=== PATIENT | male | born 1945 | race Caucasian/White ===

== ENCOUNTER 2019-09-26 15:16 | Inpatient (IN) | payer MEDICARE, OTHER ==
[~2019-09-26] VITALS: Ht 172.7 cm; Wt 81.2 kg
[2019-09-26] MEDS ORDERED: DILTIAZEM HCL 5 MG/ML 5 ML VIAL IV STA (15:35)
[2019-09-26] MEDS ORDERED: ASPIRIN 81 MG ENTERIC COATED PO ONE (15:45)
[2019-09-26] MEDS ORDERED: DILTIAZEM HCL VIAL 5 ML ONE (15:45)
[2019-09-26 15:54] LABS: BASOPHILS % 0.2 % (0.0-1.0); EOSINOPHILS % 0.5 % (0.0-6.0); HEMATOCRIT 40.7 % (38.2-49.6); LYMPHOCYTES # (AUTO) 0.6 (1.0-3.2); MEAN CORPUSCULAR HEMOGLOBIN 30.8 pg (28-32); MEAN CORPUSCULAR HGB CONC 34.4 g/dL (31-35); MEAN CORPUSCULAR VOLUME 89.6 fL (81-99); MONOCYTES # (AUTO) 0.8 (0.2-0.8); NEUTROPHILS # (AUTO) 7.1 (2.1-6.9); NEUTROPHILS % 82.9 % (38.7-80.0); PLATELET COUNT 133 x10e3/uL (140-360); RED BLOOD COUNT 4.54 x10e6/uL (4.3-5.7); RED CELL DISTRIBUTION WIDTH 13.8 % (11.7-14.4)
[2019-09-26] MEDS ORDERED: ASPIRIN 81 MG CHEW TAB PO ONE (16:00)
[2019-09-26 16:04] LABS: INR 1.2; PARTIAL THROMBOPLASTIN TIME 32.6 seconds (23.8-35.5)
[2019-09-26 16:07] LABS: BILIRUBIN,URINE SMALL (NEGATIVE); CLARITY,URINE CLEAR (CLEAR); COLOR,URINE ORANGE (YELLOW); KETONES,URINE NEGATIVE (NEGATIVE); LEUKOCYTE ESTERASE ,URINE NEGATIVE (NEGATIVE); NITRITE,URINE NEGATIVE (NEGATIVE); PROTEIN,URINE DIPSTICK NEGATIVE (NEGATIVE)
[2019-09-26 16:12] LABS: ALBUMIN 3.8 g/dL (3.5-5.0); ALBUMIN/GLOBULIN RATIO 1.4 (0.8-2.0); CALCIUM 9.1 mg/dL (8.4-10.2); CREATININE, SERUM 1.49 mg/dL (0.72-1.25); MAGNESIUM 1.8 MG/DL (1.3-2.1)
--- NOTE | 2019-09-26 16:19 | NUR ---
H&P cc: chest tightness HPI: 74yoM, PCP , card , with hx cardiac arrhythmia of unknown type, developed chest tightness and SOB for 24hours, found to have A.fib with RVR. Pt does have hx hyperthyroidism. PMH: hyperthyroidism, hemorrhoids s/p surgical mgmt, HTN, nicotine dependence in remission, pilonidal cyst s/p removal, PSHx: pilonidal cyst remova, hemorrhoid ALlergies; see emr FH/SH; quit cigs; uses Ecig; ; meds; see MAR ROS: no f/c/s/N/V/D/CARDENAS/dizziness/skin rash/focal limb weakness/confusion v/s revd PE tired appearing anicteric ns1s2; irregular HR mod bs soft nt nd no e/t skin dry n. affect labs/meds revd A/P: A.fib with RVR- dilt; lovenox BID; echo HTN- CCB Hyperthyroidism- check TSH and T4; resume methimizole 5 TID CONSTANCE- IVF Nnicotine dependence in remission Prop: pepcid on AC Dispo: Juan Carlos Henning MD, PhD.
[2019-09-26 16:22] LABS: BACTERIA,URINE MODERATE /HPF; EPITHELIAL CELLS,URINE FEW /LPF; MUCUS,URINE MODERATE (RARE); RBC,URINE 0-5 /HPF (0-5)
[2019-09-26] MEDS ORDERED: ACETAMINOPHEN 325 MG TAB PO PRN (16:30)
[2019-09-26] MEDS ORDERED: SENNOSIDES 8.6 MG TAB PO PRN (16:30)
[2019-09-26] MEDS ORDERED: ZOLPIDEM TARTRATE 5 MG TAB PO PRN (16:30)
[2019-09-26] MEDS: DILTIAZEM HCL IV SOLN 125 MG in SODIUM CHLORIDE 0.9% 100 ML IV SCH (16:30)
[2019-09-26] MEDS ORDERED: FAMOTIDINE 20 MG TAB PO SCH (16:30)
[2019-09-26] MEDS ORDERED: ONDANSETRON HCL INJ 2MG/ML 2ML 2 MG/ML VIAL IV PRN ×2 (16:30→17:00)
[2019-09-26 16:31] LABS: CREATINE KINASE MB 3.6 ng/mL (0-5.0); THYROID STIMULATING HORMONE 0.762 uIU/mL (0.350-4.940)
--- NOTE | 2019-09-26 16:38 | Diagnostic Imaging Report ---
Chest, portable AP view History: Shortness of breath chest pain Comparison: No comparisons available for review IMPRESSION: The cardiac silhouette is magnified by portable technique. Retrocardiac opacity may be secondary to atelectasis or consolidation. The right lung is grossly clear. No sizable pleural effusion or pneumothorax. Signed by: Cezar Butler MD on 09/26/2019 4:35 PM
[2019-09-26] MEDS ORDERED: MORPHINE SULFATE 2 MG/ML SYR 1ML IV PRN (17:00)
[2019-09-26] MEDS ORDERED: ENOXAPARIN SODIUM INJ 100 MG/ML SYR SC ONE (17:00)
[2019-09-26] MEDS ORDERED: NITROGLYCERIN 0.4 MG SUBL SL PRN (17:00)
--- OUTSIDE RECORDS SUMMARY | 2019-09-26 17:01 | XMS REPORT ---
Author Author [facility] Address Unknown Phone Unavailable Care Team Providers Care Business Development Associate Name Role Phone Yamel HERNANDEZ Unavailable Unavailable Problems This patient has no known problems. Allergies, Adverse Reactions, Alerts This patient has no known allergies or adverse reactions. Medications This patient has no known medications. Results Test Description Test Time Test Comments Text Results Atomic Results Result Comments CHEST SINGLE (PORTABLE) 2019-09-26 16:35:00 [place] [id number] Patient Name: REX BRAUN MR #: [id number] : 1945 Age/Sex: 74/M Req #: [id number] Adm Physician: Ordered by: LETTY HERNANDEZ MD Report #: [id number] Location: ER Room/Bed: Procedure: [id number] DX/CHEST SINGLE (PORTABLE) Exam Date: 09/26/19 Exam Time: 1530 REPORT STATUS: Signed Chest, portable AP view History: Shortness of br eath chest pain Comparison: No comparisons available for review IMPRESSION: The cardiac silhouette is magnified by portable technique. Retrocardiac opacity may be secondary to atelectasis or consolidation. The right lung is grossly clear. No sizable pleural effusion or pneumothorax. Signed by: Cezar Balderrama MD on 09/26/2019 4:35 PM Dictated By: CEZAR BALDERRAMA MD 34 Transcribed By: DIANNE on 09/26/191634 COPY TO: LETTY HERNANDEZ MD
[2019-09-26 18:36] LABS: CHOL/HDL RATIO 2.6 (3.9-4.7)
[2019-09-26] MEDS: SODIUM CHLORIDE 0.9% 1000ML 1,000 ML IV SCH (18:41)
[2019-09-26 18:56] LABS: FREE T4 (FREE THYROXINE) 0.78 ng/dL (0.8-1.8)
--- NOTE | 2019-09-26 20:10 | NUR ---
Received to 199 from ER. Placed on EKG, pulse ox & NBP for monitoring. IV NS @ 60ml/hr & Cardizem @ 10 mg/hr. Admission history, Initial admission assessment, Vaccine history and Family history completed.
[2019-09-26 20:15] VITALS: BP 118/72
[2019-09-26] MEDS ORDERED: ASPIRIN EC81 MG PO (20:42)
[2019-09-26] MEDS ORDERED: [UNRECOGNIZED DRUG - REMARK] PO (20:42)
[2019-09-26] MEDS ORDERED: [UNRECOGNIZED DRUG - REMARK] PO (20:42)
[2019-09-26 20:46] VITALS: BP 118/72
[2019-09-26 21:00] VITALS: BP 118/72
[2019-09-26] MEDS: ENOXAPARIN INJ 80 MG/0.8 ML SYR SC SCH (21:00)
[2019-09-26] MEDS: FAMOTIDINE 20 MG/2 ML VIAL IV SCH (21:16)
[2019-09-27] VITALS (8 sets, daily range): BP systolic 97–127; BP diastolic 74–98
--- NOTE | 2019-09-27 | NUR ---
EKG leads off patient, found patient walking in room with blood dripping from IV. IV tubing appeared to be ripped in half. Pt and room cleaned up and educated on importance of calling to get out of bed. Bed alarm turned on.
[2019-09-27] MEDS: SODIUM CHLORIDE 0.9% 1000ML 1,000 ML IV SCH ×2 (00:02→23:38)
--- NOTE | 2019-09-27 02:23 | Consultation ---
DATE OF CONSULTATION: Cardiology Consultation REQUESTING PHYSICIAN: Dr. Juan Carlos Lomax. REASON FOR CONSULTATION: Atrial fibrillation and chest pain. HISTORY OF PRESENT ILLNESS: This is a 74-year-old male with history of hypertension and hyperthyroidism who presents with complaints of chest pain and shortness of breath. The patient reports he was in his usual state of health until yesterday around 10:00 pm he developed chest pressure 2/10 in severity associated with shortness of breath. There was no nausea, diaphoresis, or radiation. The pain was worse with bending over, but he did not notice any association with activity. He denied any edema, orthopnea, PND, or dizziness. Of note, he previously was evaluated by Dr. Davis last year with normal nuclear stress test as well as preserved LV systolic function on echocardiogram. REVIEW OF SYSTEMS: Negative except as per HPI. PAST MEDICAL HISTORY: 1. Hyperthyroidism. 2. Hypertension. PAST SURGICAL HISTORY: Hemorrhoidectomy. ALLERGIES: PLEASE SEE EMR. MEDICATIONS: Please see medication list. SOCIAL HISTORY: He smoked half a pack to pack a day for 25 years but quit 6 to 8 years ago. He does vape at this time. No alcohol or illicit drugs. FAMILY HISTORY: Pertinent for father who had a myocardial infarction at the age of 59. PHYSICAL EXAMINATION: VITAL SIGNS: Temperature 98 degrees, pulse 100, respiratory rate 24 blood pressure 150/101, and oxygen saturation 98%. GENERAL: Well-developed, well-nourished elderly man, in no acute distress. HEENT: Normocephalic, atraumatic. Pupils equal. No scleral icterus. NECK: Supple. No thyroid or cervical lymphadenopathy. No carotid bruits. LUNGS: Clear to auscultation bilaterally. No wheeze or crackles. CARDIOVASCULAR: Normal rate. Irregularly irregular. Normal S1, S2. No murmur. ABDOMEN: Soft and nontender. EXTREMITIES: Trace edema. NEUROLOGIC: Nonfocal exam. SKIN: Dry intact. LABORATORY DATA: BUN 16, and creatinine 1.49. BNP 498. Troponin 0.065, triglycerides 49, cholesterol 106, LDL 55, HDL 41. Chest x-ray cardiac silhouette is magnified. Retrocardiac opacity may be secondary to atelectasis or consolidation. Right lung is grossly clear. No sizable pleural effusion or pneumothorax. EKG; atrial fibrillation with RVR with PVCs, nonspecific ST wave abnormality. IMPRESSION: 1. Chest pain. 2. Atrial fibrillation with RVR. 3. Hyperthyroidism. 4. Hypertension. RECOMMENDATIONS: We will transition diltiazem to p.o. if EF is preserved. The patient's CHADS- VASc score is now 2 for age and hypertension. Anticoagulation is indicated. We will discuss with the patient. Trend cardiac enzymes to rule out myocardial infarction. If he rules out no further cardiac intervention indicated at this time given recent nuclear stress test. The patient was counseled on the importance of vaping cessation, one dose of IV diuretics given elevated BNP. Thank you for this consult. We will continue to follow. Shawna Gonsales MD ABS/MODL /[id number] MTDD
[2019-09-27] MEDS: DILTIAZEM HCL IV SOLN 125 MG in SODIUM CHLORIDE 0.9% 100 ML IV SCH (03:26)
--- NOTE | 2019-09-27 04:00 | NUR ---
Decreased Cardizem to 5mg/hr.
[2019-09-27 05:31] LABS: BASOPHILS % 0.3 % (0.0-1.0); EOSINOPHILS # (AUTO) 0.1 (0.0-0.4); EOSINOPHILS % 0.8 % (0.0-6.0); HEMATOCRIT 39.1 % (38.2-49.6); HEMOGLOBIN 12.6 g/dL (14.0-18.0); LYMPHOCYTES # (AUTO) 1.1 (1.0-3.2); LYMPHOCYTES % 16.9 % (18.0-39.1); MEAN CORPUSCULAR HEMOGLOBIN 29.9 pg (28-32); MEAN CORPUSCULAR HGB CONC 32.2 g/dL (31-35); MEAN CORPUSCULAR VOLUME 92.7 fL (81-99); MONOCYTES # (AUTO) 0.7 (0.2-0.8); MONOCYTES % 10.6 % (4.4-11.3); NEUTROPHILS # (AUTO) 4.4 (2.1-6.9); NEUTROPHILS % 71.1 % (38.7-80.0); PLATELET COUNT 119 x10e3/uL (140-360); RED BLOOD COUNT 4.22 x10e6/uL (4.3-5.7); RED CELL DISTRIBUTION WIDTH 14.3 % (11.7-14.4)
[2019-09-27 06:02] LABS: CREATINE KINASE MB 1.2 ng/mL (0-5.0)
--- NOTE | 2019-09-27 06:34 | NUR ---
IM- progress note O/N see below ROS: no f/c/s/N/V/D/CARDENAS/dizziness/skin rash/focal limb weakness/confusion v/s revd PE tired appearing anicteric ns1s2; irregular HR mod bs soft nt nd no e/t skin dry n. affect labs/meds revd A/P: A.fib with RVR- dilt; lovenox BID; echo HTN- CCB Hyperthyroidism- check TSH and T4; resume methimizole 5 TID CONSTANCE- IVF Nnicotine dependence in remission Prop: pepcid on AC Dispo: 09/27 LDL 55; f/u labs; f/u echo Juan Carlos Hennnig MD, PhD.
[2019-09-27 07:12] LABS: ALBUMIN 3.3 g/dL (3.5-5.0); ALBUMIN/GLOBULIN RATIO 1.3 (0.8-2.0); ANION GAP 14.3 mmol/L (8-16); CALCIUM 8.7 mg/dL (8.4-10.2); CHOL/HDL RATIO 2.4 (3.9-4.7); CREATININE, SERUM 1.39 mg/dL (0.72-1.25); POTASSIUM 4.3 mmol/L (3.5-5.1)
[2019-09-27 08:01] LABS: PLATELET ESTIMATE SLIGHTLY DECREASED; PLATELET MORPHOLOGY COMMENT FEW GIANT; RBC MORPHOLOGY COMMENT NORMAL
[2019-09-27] MEDS ORDERED: FUROSEMIDE INJ 10 MG/ML 2 ML VIAL IV SCH (09:00)
[2019-09-27] MEDS ORDERED: ASPIRIN 81 MG ENTERIC COATED PO SCH (09:00)
[2019-09-27] MEDS ORDERED: ASPIRIN 325 MG TAB PO SCH (09:00)
[2019-09-27] MEDS ORDERED: METOPROLOL SUCC50 MG PO (09:15)
[2019-09-27] MEDS ORDERED: METHIMAZOLE5 MG PO (09:16)
[2019-09-27] MEDS: FAMOTIDINE 20 MG/2 ML VIAL IV SCH ×2 (09:19→20:21)
[2019-09-27] MEDS: ENOXAPARIN INJ 80 MG/0.8 ML SYR SC SCH ×2 (09:19→20:21)
[2019-09-27] MEDS ORDERED: METOPROLOL SUCCINATE 50 MG TAB XL PO SCH (19:15)
--- NOTE | 2019-09-27 19:16 | Progress Note ---
DATE: 09/27/2019 Cardiology Progress Note SUBJECTIVE: The patient denies chest pain, shortness of breath, or lightheadedness. OBJECTIVE: VITAL SIGNS: Temperature 99.1 degrees, pulse 77, respiratory rate 16, blood pressure 105/74, and oxygen saturation 94% on room air. GENERAL: Awake, alert, no acute distress. LUNGS: Clear to auscultation bilaterally. No wheezes or crackles. CARDIOVASCULAR: Normal rate. Irregularly irregular. Normal S1 and S2. No murmur. ABDOMEN: Soft and nontender. EXTREMITIES: Trace edema. CARDIAC MEDICATIONS: Diltiazem drip, metoprolol succinate 50 mg p.o. daily, furosemide 20 mg IV daily, and enoxaparin 80 mg subcutaneous q.12 hours. LABORATORY DATA: WBC 6.21, hemoglobin 12.6, hematocrit 39.1, and platelets 119. Sodium 141, potassium 4.3, chloride 110, CO2 21, BUN 16, and creatinine 1.39. Troponin 0.005. Echocardiogram with normal LV size with mild concentric LVH. Technically difficult study. LVEF appears moderately impaired with EF between 30% to 35%. IMPRESSION: 1. Chest pain. 2. Atrial fibrillation with rapid ventricular response. 3. Hyperthyroidism. 4. Hypertension. RECOMMENDATIONS: Wean off diltiazem. Increase metoprolol for rate control. The patient's CHADS-VASc score is 3 for age , hypertension, and heart failure. The patient will need Eliquis on discharge. No further ischemic evaluation is indicated at this time. Once his heart rate is controlled and he is off diltiazem, he can be discharged home to follow up with Dr. Davis in 2 weeks. Thank you for this consult. We will continue to follow. Shawna Gonsales MD ABS/MODL /[id number]
[2019-09-28] VITALS: BP 129/89
--- NOTE | 2019-09-28 01:28 | NUR ---
Pt out of bed with IV tubing ripped in half again. Pt stated he did not touch the tubing. Pt educated again on risks of falling and to stop messing with IV due to risk of infection and bleeding. Bed alarm still on.
--- NOTE | 2019-09-28 04:50 | NUR ---
Patient insisting he needs to go home, pt wants to shower and shave at his house and not here. Pt called son to come pick him up. Pt confused at times, so son agreed to sign AMA paper upon arrival. Pt educated of risks of leaving AMA. Pt understands but still wishes to go home. Karyn OBANDO notified Dr. Lomax regarding patient's choice.
--- NOTE | 2019-09-28 05:10 | NUR ---
Patient insists on leaving AMA, explained at length to patient the risks of leaving without completing medical treatment, up to and including . Patient still insisting on leaving AMA. Spoke with Dr Lomax and with patient's son. Patient refusing to stay in hospital. Does agree to wait for son to arrive to transport him.
--- NOTE | 2019-09-28 05:14 | NUR ---
Patient's son here, explained to him the risks of patient leaving AMA. Son was not aware that patient was leaving AMA but does comprehend at this time. Son attempted to convince his father to remain at hospital without success. Son signed AMA papers
--- NOTE | 2019-09-28 05:19 | NUR ---
Pt's son arrived, educated of risks of pt leaving AMA. Pt is refusing to stay and son signed AMA paper. IV removed and patient left with son.
--- NOTE | 2019-09-28 06:36 | NUR ---
D/C Summary Pt left AMA; could not be convinced to stay. Details of care below: A/P: A.fib with RVR- dilt; lovenox BID; echo HTN- CCB Hyperthyroidism- check TSH and T4; resume methimizole 5 TID CONSTANCE- IVF Nnicotine dependence in remission Prop: pepcid on AC Dispo: 09/27 LDL 55; f/u labs; f/u echo Juan Carlos Henning MD, PhD.
[2019-09-28] MEDS ORDERED: METOPROLOL SUCCINATE 50 MG TAB XL PO SCH (09:00)
== END 2019-09-28 05:30 | disposition left against medical advice (07) | DRG 309 ==
LOC: ER 15:16 → ERHOLD 16:51 → IMCU 20:16
PROVIDERS: ADMIT Internal Medicine; ATTEND Internal Medicine
DX: I48.91 Unspecified atrial fibrillation (principal); N17.9 Acute kidney failure, unspecified; I10 Essential (primary) hypertension; E05.90 Thyrotoxicosis, unspecified without thyrotoxic crisis or storm; Z87.891 Personal history of nicotine dependence
CPT/HCPCS: 36415; 71045; 80053; 80061; 81001; 82550; 82553; 83735; 83880; 84439; 84443; 84484; 85025; 85610; 85730; 87086; 93005; 93306; 99284; J1650; J1940; J7030; J7050

== ENCOUNTER 2019-10-03 05:02 | Inpatient (IN) | payer MEDICARE, OTHER ==
[~2019-10-03] VITALS: Ht 172.7 cm; Wt 75.7 kg
[~2019-10-03 05:02] MED LIST: ASPIRIN EC81 MG PO; METHIMAZOLE5 MG PO; METOPROLOL SUCC50 MG PO; [UNRECOGNIZED DRUG - REMARK] PO; [UNRECOGNIZED DRUG - REMARK] PO
[2019-10-03] MEDS ORDERED: AMIODARONE HCL 150MG 100 ML IV ONE (05:30)
[2019-10-03] MEDS ORDERED: AMIODARONE HCL 360MG 200 ML IV SCH ×2 (05:30→06:00)
[2019-10-03 05:33] LABS: BASOPHILS % 0.3 % (0.0-1.0); EOSINOPHILS # (AUTO) 0.1 (0.0-0.4); EOSINOPHILS % 0.8 % (0.0-6.0); HEMATOCRIT 41.7 % (38.2-49.6); HEMOGLOBIN 13.6 g/dL (14.0-18.0); LYMPHOCYTES # (AUTO) 0.5 (1.0-3.2); LYMPHOCYTES % 5.6 % (18.0-39.1); MEAN CORPUSCULAR HGB CONC 32.6 g/dL (31-35); MEAN CORPUSCULAR VOLUME 91.9 fL (81-99); MONOCYTES # (AUTO) 0.5 (0.2-0.8); MONOCYTES % 5.5 % (4.4-11.3); NEUTROPHILS # (AUTO) 8.1 (2.1-6.9); NEUTROPHILS % 87.5 % (38.7-80.0); PLATELET COUNT 173 x10e3/uL (140-360); RED BLOOD COUNT 4.54 x10e6/uL (4.3-5.7); RED CELL DISTRIBUTION WIDTH 13.8 % (11.7-14.4)
[2019-10-03] MEDS ORDERED: AMIODARONE 900MG 500 ML IV ONE (05:37)
[2019-10-03 05:46] LABS: INR 1.4; PROTHROMBIN TIME 18.1 seconds (11.9-14.5)
[2019-10-03 05:47] LABS: PARTIAL THROMBOPLASTIN TIME 35.3 seconds (23.8-35.5)
[2019-10-03 05:54] LABS: ALBUMIN 3.5 g/dL (3.5-5.0); ALBUMIN/GLOBULIN RATIO 1.3 (0.8-2.0); ANION GAP 14.4 mmol/L (8-16); CALCIUM 9.2 mg/dL (8.4-10.2); CREATININE, SERUM 1.64 mg/dL (0.72-1.25); POTASSIUM 4.4 mmol/L (3.5-5.1)
--- NOTE | 2019-10-03 06:36 | Diagnostic Imaging Report ---
EXAMINATION: CHEST 2 VIEWS INDICATION: ^COUGH, SOB COMPARISON: Chest x-ray 09/26/2019 FINDINGS: PA and lateral views TUBES and LINES: None. LUNGS: Diffuse hyperinflation. No confluent infiltrates. Calcified granuloma in the left lung base. PLEURA: Small bilateral pleural effusions. No pneumothorax HEART AND MEDIASTINUM: The heart is top normal in size. There are calcified mediastinal lymph nodes. BONES AND SOFT TISSUES: Degenerative changes of the spine. No focal osseous lesions. Soft tissues are unremarkable. UPPER ABDOMEN: Unremarkable. IMPRESSION: Pulmonary hyperinflation suggestive of small airways disease. Small bilateral pleural effusions. Healed granulomatous inflammation. Signed by: Dr. Brittney Taylor MD on 10/03/2019 6:33 AM
[2019-10-03] MEDS ORDERED: ALBUTEROL/IPRATROPIUM 3 ML NEB NEB ONE ×2 (06:45→10:15)
[2019-10-03] MEDS ORDERED: DIGOXIN INJ 0.25 MG/ML 2 ML AMP IV STA (06:58)
[2019-10-03] MEDS ORDERED: IPRATROPIUM BROMIDE 0.02% 2.5 ML NEB NEB ONE (07:00)
[2019-10-03] MEDS ORDERED: LEVALBUTEROL HCL SOLN NEBU 0.63 MG/3 ML NEB INH ONE (07:00)
--- NOTE | 2019-10-03 07:01 | NUR ---
H&P cc: chest palpitation and cold symptoms HPI: 74yoM, PCP , card , with recent admission for A.fib with RVR, left AMA, now back for same issue. Admits that family had URI, and he seemed to come down with same. PMH: hyperthyroidism, hemorrhoids s/p surgical mgmt, HTN, nicotine dependence in remission, pilonidal cyst s/p removal, PSHx: pilonidal cyst remova, hemorrhoid ALlergies; see emr FH/SH; quit cigs; uses Ecig; ; meds; see MAR ROS: no f/c/s/N/V/D/CARDENAS/dizziness/skin rash/focal limb weakness/confusion v/s revd PE tired appearing anicteric ns1s2; irregular HR coarse BS soft nt nd no e/t skin dry n. affect labs/meds revd A/P: A.fib with RVR- dilt; lovenox BID; echo Acute URI- doxycycline Small B/L Pleural effusion- give dose lasix HTN- CCB Hyperthyroidism- check TSH and T4; resume methimizole 5 TID Likely CKD3- follow Nnicotine dependence in remission Prop: pepcid on AC Dispo: give dose lasix Juan Carlos Henning MD, PhD.
[2019-10-03] MEDS ORDERED: DOCUSATE SODIUM 100 MG CAP PO PRN (07:15)
[2019-10-03] MEDS ORDERED: ONDANSETRON HCL INJ 2MG/ML 2ML 2 MG/ML VIAL IV PRN (07:15)
[2019-10-03] MEDS ORDERED: FUROSEMIDE INJ 10 MG/ML 2 ML VIAL IV ONE (07:15)
[2019-10-03] MEDS ORDERED: ACETAMINOPHEN 325 MG TAB PO PRN (07:15)
[2019-10-03] MEDS ORDERED: DOXYCYCLINE 100MG/NS 100ML 100 ML IV SCH (07:30)
[2019-10-03] MEDS ORDERED: ELIQUIS5 MG PO (07:39)
[2019-10-03] MEDS ORDERED: LISINOPRIL10 MG PO (07:39)
[2019-10-03] MEDS ORDERED: METOPROLOL TARTRATE 50 MG TAB ONE (08:07)
[2019-10-03] MEDS ORDERED: BENZONATATE 100 MG CAP ONE (08:08)
[2019-10-03] MEDS: BENZONATATE 100 MG CAP PO SCH ×3 (08:08→21:05)
[2019-10-03] MEDS: LISINOPRIL 10 MG TAB PO SCH (08:08)
[2019-10-03] MEDS: APIXABAN 5 MG TABLET PO SCH ×2 (08:08→17:15)
[2019-10-03] MEDS: METHIMAZOLE 5 MG TAB PO SCH (08:08)
[2019-10-03 08:52] LABS: ABG HCO3 22 mmol/L (23-28); ABG PCO2 34 mmHg (41-51); ABG PH 7.42 (7.31-7.41); ABG PO2 61 mmHg (80-105)
[2019-10-03] MEDS ORDERED: METOPROLOL SUCCINATE 50 MG TAB XL PO SCH (09:00)
[2019-10-03] MEDS ORDERED: ASPIRIN 81 MG ENTERIC COATED PO SCH (09:00)
[2019-10-03] MEDS ORDERED: DILTIAZEM HCL 5 MG/ML 5 ML VIAL IV STA ×2 (11:00→14:40)
[2019-10-03] MEDS: AMIODARONE 900MG 500 ML IV SCH (11:16)
[2019-10-03] MEDS ORDERED: DILTIAZEM HCL VIAL 5 ML ONE (11:18)
[2019-10-03] MEDS ORDERED: GUAIFENESIN/DEXTROMETHORPHAN LIQD 5 ML UDC NG SCH (14:00)
[2019-10-03] MEDS ORDERED: METOPROLOL TARTRATE INJ 1 MG/ML VIAL ONE (14:51)
[2019-10-03] MEDS ORDERED: METOPROLOL TARTRATE INJ 1 MG/ML VIAL IV PRN (17:00)
[2019-10-03] MEDS ORDERED: METOPROLOL TARTRATE 50 MG TAB PO ONE (17:00)
[2019-10-03] MEDS ORDERED: DIGOXIN INJ 0.25 MG/ML 2 ML AMP IV ONE (17:15)
[2019-10-03 18:05] LABS: CLARITY,URINE HAZY (CLEAR); COLOR,URINE YELLOW (YELLOW); LEUKOCYTE ESTERASE ,URINE 2+ (NEGATIVE); NITRITE,URINE NEGATIVE (NEGATIVE)
[2019-10-03 18:06] LABS: BILIRUBIN,URINE NEGATIVE (NEGATIVE); KETONES,URINE NEGATIVE (NEGATIVE); PROTEIN,URINE DIPSTICK 1+ (NEGATIVE); URINE UROBILINOGEN 0.2 mg/dL (0.2 - 1)
[2019-10-03 18:15] LABS: AMORPHOUS SEDIMENT,URINE MODERATE (FEW); BACTERIA,URINE MODERATE /HPF; EPITHELIAL CELLS,URINE FEW /LPF
[2019-10-03] MEDS: LEVALBUTEROL HCL SOLN NEBU 1.25 MG/3 ML NEB INH SCH (19:00)
[2019-10-03] MEDS ORDERED: LEVALBUTEROL HCL SOLN NEBU 1.25 MG/3 ML NEB INH ONE (19:00)
[2019-10-03] MEDS ORDERED: LEVALBUTEROL HCL SOLN NEBU 1.25 MG/3 ML NEB INH PRN (19:00)
[2019-10-03] MEDS ORDERED: FUROSEMIDE INJ 10 MG/ML 4 ML VIAL IV ONE (19:15)
[2019-10-03] MEDS: CEFTRIAXONE SOD 1 GM/NS 50 ML 50 ML IV SCH (19:58)
[2019-10-03] MEDS: GUAIFENESIN/DEXTROMETHORPHAN LIQD 5 ML UDC PO SCH (21:09)
--- NOTE | 2019-10-03 22:07 | NUR ---
PT AND SON REQUESTING PAK CATHETER DUE TO PATIENT HAVING TO GET OUT BED FREQUENTLY TO VOID P RECEIVING LASIX. DR BLACK CALLED AND INFORMED. CONDOM CATHETER ORDERED. CONDOM CATHETER PLACED AT THIS TIME AND CONNECTED TO BEDSIDE DRAINAGE BAG. PT EDUCATED ON CONDOM CATHETER. SON STATES THAT LEAVING FOR THE NIGHT, SON STATES THAT CONCERNED ABOUT PATIENT "GETTING TANGLED IN LINES AND NOT CALLING FOR HELP." BED EXIT ALARM ACTIVATED. PT INSTRUCTED TO CALL FOR HELP NEEDED, CALLBELL WITHIN REACH.
[2019-10-03] MEDS: METOPROLOL TARTRATE 50 MG TAB PO SCH (23:28)
[2019-10-03 23:55] VITALS: BP 142/86
[2019-10-04] VITALS (10 sets, daily range): BP systolic 111–160; BP diastolic 71–107
[2019-10-04] MEDS: LEVALBUTEROL HCL SOLN NEBU 1.25 MG/3 ML NEB INH SCH ×4 (01:22→19:00)
[2019-10-04] MEDS: METOPROLOL TARTRATE 50 MG TAB PO SCH ×4 (05:34→18:50)
[2019-10-04] MEDS: GUAIFENESIN/DEXTROMETHORPHAN LIQD 5 ML UDC PO SCH ×3 (05:35→20:54)
--- NOTE | 2019-10-04 07:25 | NUR ---
IM- progress note O/N see below ROS: no f/c/s/N/V/D/CARDENAS/dizziness/skin rash/focal limb weakness/confusion v/s revd PE tired appearing anicteric ns1s2; irregular HR coarse BS soft nt nd no e/t skin dry n. affect labs/meds revd A/P: A.fib with RVR- dilt; lovenox BID; echo Acute URI- doxycycline Small B/L Pleural effusion- give dose lasix HTN- CCB Hyperthyroidism- check TSH and T4; resume methimizole 5 TID Likely CKD3- follow Nnicotine dependence in remission Prop: pepcid on AC Dispo: give dose lasix 10/04 check labs; check TFTs; start flomax and finasteride for signs of BPH with urgency and frequency/urinary retention. Family support for anxiety issues- pt left AMA last visit. AV blockade- defer to cardiology. cont AC. Juan Carlos Henning MD, PhD.
[2019-10-04] MEDS ORDERED: ALPRAZOLAM 0.25 MG TAB PO PRN (07:45)
[2019-10-04] MEDS: APIXABAN 5 MG TABLET PO SCH ×2 (08:41→18:36)
[2019-10-04] MEDS: TAMSULOSIN HCL 0.4 MG CAP PO SCH ×2 (08:41→20:53)
[2019-10-04] MEDS: FUROSEMIDE INJ 10 MG/ML 2 ML VIAL IV SCH ×2 (08:41→18:35)
[2019-10-04] MEDS: HALOPERIDOL 5 MG TAB PO SCH (08:42)
[2019-10-04] MEDS: BENZONATATE 100 MG CAP PO SCH ×3 (08:42→21:00)
[2019-10-04] MEDS: FINASTERIDE 5 MG TAB PO SCH (08:42)
[2019-10-04] MEDS: METHIMAZOLE 5 MG TAB PO SCH (08:43)
[2019-10-04] MEDS ORDERED: HALOPERIDOL 1 MG TAB PO SCH (09:00)
[2019-10-04] MEDS ORDERED: METRONIDAZOLE 500MG/NS 100ML 100 ML IV SCH ×2 (09:00→14:00)
[2019-10-04] MEDS: LISINOPRIL 10 MG TAB PO SCH (09:09)
[2019-10-04 09:35] LABS: BASOPHILS % 0.1 % (0.0-1.0); EOSINOPHILS % 0.1 % (0.0-6.0); HEMATOCRIT 41.9 % (38.2-49.6); HEMOGLOBIN 13.8 g/dL (14.0-18.0); LYMPHOCYTES # (AUTO) 0.5 (1.0-3.2); MEAN CORPUSCULAR HEMOGLOBIN 29.9 pg (28-32); MEAN CORPUSCULAR HGB CONC 32.9 g/dL (31-35); MEAN CORPUSCULAR VOLUME 90.7 fL (81-99); MONOCYTES # (AUTO) 0.6 (0.2-0.8); MONOCYTES % 5.7 % (4.4-11.3); NEUTROPHILS # (AUTO) 8.5 (2.1-6.9); NEUTROPHILS % 88.5 % (38.7-80.0); PLATELET COUNT 196 x10e3/uL (140-360); RED BLOOD COUNT 4.62 x10e6/uL (4.3-5.7); RED CELL DISTRIBUTION WIDTH 13.9 % (11.7-14.4)
[2019-10-04 09:56] LABS: ANION GAP 14.7 mmol/L (8-16); CALCIUM 9.4 mg/dL (8.4-10.2); CREATININE, SERUM 1.53 mg/dL (0.72-1.25); POTASSIUM 3.7 mmol/L (3.5-5.1)
[2019-10-04] MEDS: AMIODARONE 900MG 500 ML IV SCH (13:39)
[2019-10-04] MEDS ORDERED: LOPERAMIDE HCL 2 MG CAP PO PRN (17:30)
--- NOTE | 2019-10-04 18:33 | Consultation ---
DATE OF CONSULTATION: 10/04/2019 Urology Consultation REASON FOR CONSULTATION: Urinary retention. HISTORY OF PRESENT ILLNESS: Maurisio Langston is a 74-year-old man with no previous urological evaluation. He denies hematuria, dysuria, urinary tract infections, or urolithiasis. Denies any urological surgery. The patient is admitted with atrial fibrillation with rapid ventricular response. He has been given Lasix. The patient has been going to the restroom every 5 minutes. Bladder scanning following a void attempt revealed a postvoid residual of over 700 mL. Urological consultation was sought. PAST MEDICAL AND SURGICAL HISTORY: 1. Atrial fibrillation. 2. Hypertension. 3. Status post hemorrhoidectomy. 4. Status post pilonidal cyst excision. 5. Status post bilateral cataract surgery. ALLERGIES: SULFA, AMOXICILLIN, PREDNISONE. CURRENT MEDICATIONS: Please refer to the MAR. SOCIAL HISTORY: The patient quit smoking five or six years ago after smoking half a pack per day of many years. He used to work in construction. He has supportive family at the bedside. Currently, he denies smoking ethanol or drug use. FAMILY HISTORY: Noncontributory to the active urological problems. REVIEW OF SYSTEMS: Discussed as above in history of present illness, past medical history, otherwise negative for all other systems. PHYSICAL EXAMINATION: GENERAL: Relatively healthy-appearing 74-year-old man walking around the room, in no apparent distress, but constantly rushed to the restroom. ABDOMEN: Soft, nondistended, nontender without costovertebral angle tenderness. Kidneys not palpable without hepatosplenomegaly. No obvious evidence of hernia. GENITOURINARY: Testes descended bilaterally. Testis and epididymides bilaterally palpably normal. The patient has a normal uncircumcised male phallus with normal meatus without any lesion. Digital rectal examination is deferred at the present time. We did witness the patient having urge incontinence into his pull-up. For the remaining physical examination systems, please refer to the admission history and physical in the chart. LABORATORY STUDIES: Blood cultures are currently negative. White blood cell count is 9600, hemoglobin 13.8, and platelets are 196,000. The patient creatinine is 1.53. Urinalysis significant for 6-10 RBCs, 11-20 WBCs and moderate bacteria. I do not have any idea why urine culture is at the present time. There are no urologically significant radiographic studies. ASSESSMENT: 1. Urinary retention. 2. Urge incontinence. 3. Anemia. 4. Presumably chronic renal insufficiency. 5. Urinary tract infection. 6. Microscopic hematuria. PLAN: 1. Urine culture and sensitivity hopefully on the emergency room urine that came in. 2. The patient needs a Morillo catheter placed. He will most likely need to go home with a Morillo catheter for a couple of weeks prior to following up in the office for urodynamic study. 3. The patient needs to be probably on Flomax. 4. The patient needs to be on antibiotics of some sort until labs are back. He is currently on ceftriaxone for all the more reason why we need a culture from before the antibiotics were given. Thank you very much for involving us in the care of your patient. We will be happy to follow him along with you as well as an outpatient. Tobin Nguyen MD OH/MODL /[id number] cc: Flo Kirkland MD
[2019-10-04] MEDS ORDERED: SODIUM CHLORIDE 0.9% 250ML 250 ML ONE (20:08)
--- NOTE | 2019-10-04 20:52 | NUR ---
Received patient from day nurse, patient is alert and oriented, patient denies concerns at this time, safety and fall precautions maintained as per hospital protocol: bed in lowest position and locked, needed items beside bed and call galloway placed close to patient. patient son at bed side.
[2019-10-04] MEDS: CEFTRIAXONE SOD 1 GM/NS 50 ML 50 ML IV SCH (20:53)
[2019-10-04] MEDS: ZOLPIDEM TARTRATE 5 MG TAB PO PRN (20:54)
--- NOTE | 2019-10-04 22:10 | NUR ---
patient rounded and stable.
--- NOTE | 2019-10-04 23:03 | Consultation ---
DATE OF CONSULTATION: 10/04/2019 Cardiology Consult Note REASON FOR CONSULT: Atrial fibrillation with RVR. CHIEF COMPLAINT: Palpitations, shortness of breath, urinary retention. HISTORY OF PRESENT ILLNESS: A 74-year-old man, history of known atrial fibrillation, anticoagulation with Eliquis at home. He had presented earlier to the ER and left AMA, but now presented again to the hospital with worsening shortness of breath and palpitation, also with urinary retention. Morillo was inserted and he felt much better. IV amiodarone was started and now the heart rate is much better. The patient is not clear about what medications he was taking. He was a patient of Dr. Jorgito Davis and had an appointment coming up to see him next week. REVIEW OF SYSTEMS: As per HPI, otherwise negative. PAST MEDICAL HISTORY: As mentioned in HPI. PAST SURGICAL HISTORY: Noncontributory. SOCIAL HISTORY: He does not smoke, drink, or abuse drugs. FAMILY HISTORY: Noncontributory. OUTPATIENT MEDICATIONS: Reviewed. ALLERGIES: REVIEWED. ALLERGIC TO SULFA, AMOXICILLIN, AND PREDNISONE. OBJECTIVE: VITAL SIGNS: Temperature afebrile, pulse 97, respiratory rate 20, blood pressure 131/88, saturating 94% on room air. GENERAL: An elderly man well developed, well nourished, no acute distress. CARDIOVASCULAR: Irregular, tachycardic. No murmurs, rubs, or gallops. LUNGS: Clear to auscultation anteriorly. ABDOMEN: Soft, nontender, nondistended. No masses. NEURO AND PSYCH: Alert and oriented to person, place, and time. Normal affect. INPATIENT MEDICATIONS: Reviewed. LABORATORY DATA: Reviewed. BNP is 878. Troponins negative x1. IMAGING DATA: Reviewed. Chest x-ray shows pulmonary hyperinflation, small pleural effusion. TELEMETRY DATA: Reviewed shows atrial fibrillation with RVR. ASSESSMENT AND PLAN: Atrial fibrillation with rapid ventricular response. Continue IV amiodarone. We will change to oral amiodarone tomorrow. Continue metoprolol 50 mg q.6 hours p.o. Rate control is improved. Continue anticoagulation with Eliquis. Echocardiogram is pending. Thank you for this consult. We will continue to follow. MD PAUL Angeles/LOREE Armijo: 10/04/2019 19:23:22 /[id number]
[2019-10-05] VITALS (9 sets, daily range): BP systolic 98–135; BP diastolic 5–86
--- NOTE | 2019-10-05 00:39 | Consultation ---
DATE OF CONSULTATION: 10/04/2019 Neurology Consultation REASON FOR CONSULTATION: I am seeing the patient for delirium. HISTORY OF PRESENT ILLNESS: Mr. Langston is a 74-year-old gentleman, who comes in for arrhythmia and palpitations over the weekend. I was called because the patient was delirious overnight. The patient has significant urinary retention, possible UTI, and is positive for tachycardia with atrial fibrillation. The patient states that he became confused overnight and is not able to sleep. Significant pain in his bladder and limited his ability to be and remain coherent. However, this seemed to improve with therapeutic intervention for the urinary retention. At this time, he is awake and oriented x3, responsive, follows all commands. He reports that this has not happened before and he states that hearing aids and his cognition seems to be well intact. I discussed the case with his daughter, who is at bedside. She agrees. REVIEW OF SYSTEMS: A 14-point review of systems is urologically negative. Cardiovascularly, endorses palpitation. Denies pulmonary issues. Abdomen is soft and nontender. Bladder, he was retaining. He had dribbling, incontinence, and pain in his lower abdomen. Otherwise, 14-point review of systems negative. PHYSICAL EXAMINATION: VITAL SIGNS: He is tachycardic. His heart rate is 102, but regular. Blood pressure is 127/78. His temperature, afebrile at 98.1. HEENT: Extraocular muscles are intact. Face is symmetric. Tongue is midline. Speech is clear. ABDOMEN: Soft and nontender. He does have a catheter in place. His reflexes are 1/4 in the uppers and lowers. EXTREMITIES: Toes are mute. ABDOMEN: Soft. NEUROLOGIC: He is not ataxic to exam. Strength is 5/5. When asked to name 50 states in 1 minute, he does name successfully 19 states with only one repetition and that of . Although, his neurocognitive exam and neurophysiological exam are within normal limits, no focal neurological deficits are otherwise. ASSESSMENT AND PLAN: The patient presents with urinary retention, urinary tract infection, atrial fibrillation, and delirium. The delirium seems to have largely resolved. No underlying evidence of dementia or neurocognitive decline. Continue current management. No antiepileptic therapy. No neurological intervention at this time is required. We will monitor the patient clinically as needed. Otherwise, no CT scan required at this time. MD JUDY BATEMAN/LOREE /[id number]
--- NOTE | 2019-10-05 00:53 | NUR ---
patient rounded and stable.
[2019-10-05] MEDS: LEVALBUTEROL HCL SOLN NEBU 1.25 MG/3 ML NEB INH SCH ×4 (01:00→19:00)
[2019-10-05] MEDS: METOPROLOL TARTRATE 50 MG TAB PO SCH ×4 (02:35→17:19)
[2019-10-05 05:31] LABS: BASOPHILS % 0.3 % (0.0-1.0); EOSINOPHILS # (AUTO) 0.1 (0.0-0.4); EOSINOPHILS % 1.9 % (0.0-6.0); HEMATOCRIT 39.4 % (38.2-49.6); LYMPHOCYTES # (AUTO) 0.5 (1.0-3.2); LYMPHOCYTES % 7.7 % (18.0-39.1); MEAN CORPUSCULAR HEMOGLOBIN 29.7 pg (28-32); MEAN CORPUSCULAR VOLUME 90.2 fL (81-99); MONOCYTES # (AUTO) 0.6 (0.2-0.8); MONOCYTES % 8.5 % (4.4-11.3); NEUTROPHILS # (AUTO) 5.6 (2.1-6.9); NEUTROPHILS % 81.3 % (38.7-80.0); PLATELET COUNT 174 x10e3/uL (140-360); RED BLOOD COUNT 4.37 x10e6/uL (4.3-5.7); RED CELL DISTRIBUTION WIDTH 13.7 % (11.7-14.4)
[2019-10-05 05:55] LABS: ANION GAP 10.4 mmol/L (8-16); CALCIUM 8.9 mg/dL (8.4-10.2); CREATININE, SERUM 1.29 mg/dL (0.72-1.25); POTASSIUM 3.4 mmol/L (3.5-5.1)
[2019-10-05] MEDS: GUAIFENESIN/DEXTROMETHORPHAN LIQD 5 ML UDC PO SCH ×3 (06:40→21:22)
--- NOTE | 2019-10-05 06:50 | NUR ---
IM- progress note O/N see below ROS: no f/c/s/N/V/D/CARDENAS/dizziness/skin rash/focal limb weakness/confusion v/s revd PE tired appearing anicteric ns1s2; irregular HR coarse BS soft nt nd no e/t skin dry n. affect labs/meds revd A/P: A.fib with RVR- dilt; lovenox BID; echo Acute URI- doxycycline Small B/L Pleural effusion- give dose lasix BPH- sy inserted Urinary retention due to BPH- sy HTN- CCB Hyperthyroidism- check TSH and T4; resume methimizole 5 TID Likely CKD3- follow Nnicotine dependence in remission Prop: pepcid on AC Dispo: give dose lasix 10/04 check labs; check TFTs; start flomax and finasteride for signs of BPH with urgency and frequency/urinary retention. Family support for anxiety issues- pt left AMA last visit. AV blockade- defer to cardiology. cont AC. 10/05 cont care; replace K; Urinary retention due to BPH- sy placed; Juan Carlos Henning MD, PhD.
--- NOTE | 2019-10-05 07:00 | NUR ---
Rcvd patient in report this am. Patient is asleep in bed with family at bedside. No s/s of distress noted. Patient on amiodarone drip at this time.
--- NOTE | 2019-10-05 07:00 | NUR ---
Patient condition throughout the night was stable, patient endorsed to next shift for continuity of care.
[2019-10-05] MEDS ORDERED: POTASSIUM CHLORIDE 20 MEQ TAB CR PO ONE (07:45)
[2019-10-05] MEDS: FINASTERIDE 5 MG TAB PO SCH (08:07)
[2019-10-05] MEDS: FUROSEMIDE INJ 10 MG/ML 2 ML VIAL IV SCH ×2 (08:07→17:19)
[2019-10-05] MEDS: APIXABAN 5 MG TABLET PO SCH ×2 (08:07→17:19)
[2019-10-05] MEDS: HALOPERIDOL 5 MG TAB PO SCH (08:07)
[2019-10-05] MEDS: LISINOPRIL 10 MG TAB PO SCH (08:07)
[2019-10-05] MEDS: METHIMAZOLE 5 MG TAB PO SCH (08:07)
[2019-10-05] MEDS: BENZONATATE 100 MG CAP PO SCH ×3 (08:07→21:22)
[2019-10-05] MEDS: TAMSULOSIN HCL 0.4 MG CAP PO SCH ×2 (08:07→21:22)
--- NOTE | 2019-10-05 08:42 | NUR ---
S: no acute neurological complaints vs: 98.2 82 118/86 eomi perrl face symmetric no nuchal rigidity cta rrr abd soft cn II-XII symmetric speech clear motor 5/5 reflexes 1/4 no ataxia a/p intermittent delirium 2/2 metabolic encephalopathy now resolved no evidence focal neuro dysfunction or seizure neuro stable
[2019-10-05] MEDS: AMIODARONE HCL 200 MG TAB PO SCH ×2 (10:00→21:22)
--- NOTE | 2019-10-05 14:47 | NUR ---
Patient is resting in bed at this time. Patient continues on amiodarone drip. No s/s of distress noted. No c/o pain. No shortness of breath noted.
[2019-10-05] MEDS: CEFTRIAXONE SOD 1 GM/NS 50 ML 50 ML IV SCH (19:57)
--- NOTE | 2019-10-05 20:00 | NUR ---
Report received. Assumed care. Assessment done. See interventions.
--- NOTE | 2019-10-05 21:12 | NUR ---
Amiodarone IV complete.
--- NOTE | 2019-10-05 21:43 | Progress Note ---
DATE: 10/05/2019 SUBJECTIVE: Feeling better today. Shortness of breath is improved. More comfortable after yesterday. Denies any chest pain, no shortness of breath. OBJECTIVE: VITAL SIGNS: Temperature afebrile, pulse 85, respiratory rate 20, blood pressure , saturating 97% on nasal cannula. GENERAL: An elderly man, thin, well developed, no acute distress. CARDIOVASCULAR: Irregular rate and rhythm. No murmurs, rubs, or gallops. LUNGS : Clear to auscultation bilaterally. ABDOMEN: Soft, nontender, nondistended. NEURO AND PSYCH: Alert and oriented to person, place, and time. Normal affect. INPATIENT MEDICATIONS: Reviewed. LABORATORY DATA: Reviewed. TELEMETRY DATA: Reviewed, shows atrial fibrillation, rate controlled. ASSESSMENT AND PLAN: Atrial fibrillation with rapid ventricular response, now rate controlled. PLAN: Continue oral amiodarone. . Continue apixaban. Likely okay to be discharged from cardiovascular standpoint tomorrow with outpatient followup. MD PAUL Angeles/LOREE /[id number]
[2019-10-06] VITALS (9 sets, daily range): BP systolic 98–146; BP diastolic 60–106
[2019-10-06] MEDS: LEVALBUTEROL HCL SOLN NEBU 1.25 MG/3 ML NEB INH SCH ×4 (01:00→19:05)
[2019-10-06] MEDS: GUAIFENESIN/DEXTROMETHORPHAN LIQD 5 ML UDC PO SCH ×3 (05:51→20:59)
[2019-10-06] MEDS: FUROSEMIDE INJ 10 MG/ML 2 ML VIAL IV SCH ×2 (08:08→16:14)
[2019-10-06] MEDS: APIXABAN 5 MG TABLET PO SCH ×2 (08:09→16:14)
[2019-10-06] MEDS: HALOPERIDOL 5 MG TAB PO SCH (08:10)
[2019-10-06] MEDS: TAMSULOSIN HCL 0.4 MG CAP PO SCH ×2 (08:10→20:59)
[2019-10-06] MEDS: FINASTERIDE 5 MG TAB PO SCH (08:11)
[2019-10-06] MEDS: METHIMAZOLE 5 MG TAB PO SCH (08:11)
[2019-10-06] MEDS: LISINOPRIL 10 MG TAB PO SCH (08:11)
[2019-10-06] MEDS: BENZONATATE 100 MG CAP PO SCH ×3 (08:11→20:59)
[2019-10-06] MEDS ORDERED: METOPROLOL SUCCINATE 50 MG TAB XL PO SCH (09:00)
[2019-10-06] MEDS: AMIODARONE HCL 200 MG TAB PO SCH ×2 (09:31→20:59)
--- NOTE | 2019-10-06 09:43 | NUR ---
S: no acute neurological complaints vs: 98.8 77 126/89 eomi perrl face symmetric no nuchal rigidity cta rrr abd soft cn II-XII symmetric speech clear motor 5/5 reflexes 1/4 no ataxia a/p intermittent delirium 2/2 metabolic encephalopathy now resolved no evidence focal neuro dysfunction or seizure
[2019-10-06] MEDS ORDERED: METOPROLOL TARTRATE 50 MG TAB PO ONE (11:00)
--- NOTE | 2019-10-06 11:16 | NUR ---
IM- progress note O/N see below ROS: no f/c/s/N/V/D/CARDENAS/dizziness/skin rash/focal limb weakness/confusion v/s revd PE tired appearing anicteric ns1s2; irregular HR coarse BS soft nt nd no e/t skin dry n. affect labs/meds revd A/P: A.fib with RVR- dilt; lovenox BID; echo Acute URI- doxycycline Small B/L Pleural effusion- give dose lasix BPH- sy inserted Urinary retention due to BPH- sy HTN- CCB Hyperthyroidism- check TSH and T4; resume methimizole 5 TID Likely CKD3- follow Nnicotine dependence in remission Prop: pepcid on AC Dispo: give dose lasix 10/04 check labs; check TFTs; start flomax and finasteride for signs of BPH with urgency and frequency/urinary retention. Family support for anxiety issues- pt left AMA last visit. AV blockade- defer to cardiology. cont AC. 10/05 cont care; replace K; Urinary retention due to BPH- sy placed; 10/06 Doing better; d/c planning; Juan Carlos Henning MD, PhD.
[2019-10-06 11:19] LABS: ANION GAP 11.6 mmol/L (8-16); CREATININE, SERUM 1.45 mg/dL (0.72-1.25); POTASSIUM 3.6 mmol/L (3.5-5.1)
[2019-10-06] MEDS: CEFTRIAXONE SOD 1 GM/NS 50 ML 50 ML IV SCH (20:59)
[2019-10-06] MEDS: ZOLPIDEM TARTRATE 5 MG TAB PO PRN (20:59)
--- NOTE | 2019-10-06 22:54 | Progress Note ---
DATE: 10/06/2019 Cardiology Progress Note SUBJECTIVE: No major events overnight. Heart rate is a little better controlled today. OBJECTIVE: VITAL SIGNS: Temperature afebrile, pulse 89, respiratory rate 16, blood pressure 136/94, and saturating 99% on 2 L nasal cannula. GENERAL: An elderly man well developed and well nourished, in no acute distress. CARDIOVASCULAR: Irregular rate and rhythm. No murmurs, rubs, or gallops. LUNGS: Clear to auscultation bilaterally. ABDOMEN: Soft, nontender, and nondistended. NEURO AND PSYCH: Alert and oriented to person, place, and time. Normal affect. INPATIENT MEDICATIONS: Reviewed. LABORATORY DATA: Reviewed. TELEMETRY DATA: Reviewed, shows atrial fibrillation very well rate controlled. ASSESSMENT: Atrial fibrillation with rapid ventricular response, now better rate control. PLAN: Continue cardiovascular regimen as follows. Metoprolol succinate 300 mg daily, apixaban 5 mg p.o. b.i.d., and amiodarone 200 mg p.o. b.i.d. The patient is okay to be discharged on this regimen, likely tomorrow morning. We will follow up with Dr. Davis in clinic in 1 to 2 weeks for further titration of medications. MD PAUL Angeles/LOREE /[id number]
[2019-10-07] VITALS: BP 117/95
[2019-10-07 00:29] VITALS: BP 117/95
[2019-10-07] MEDS: LEVALBUTEROL HCL SOLN NEBU 1.25 MG/3 ML NEB INH SCH ×3 (00:50→13:00)
[2019-10-07 04:00] VITALS: BP 126/84
[2019-10-07] MEDS: GUAIFENESIN/DEXTROMETHORPHAN LIQD 5 ML UDC PO SCH (04:50)
[2019-10-07 05:16] VITALS: BP 126/84
--- NOTE | 2019-10-07 05:47 | NUR ---
D/C summary Principal Dx: A.fib with RVR- dilt; lovenox BID; echo Acute URI- doxycycline Small B/L Pleural effusion- give dose lasix BPH- sy inserted Urinary retention due to BPH- sy CKD3 due to HTN Seoncdary Dx; HTN- CCB Hyperthyroidism- check TSH and T4; resume methimizole 5 TID Likely CKD3- follow Nnicotine dependence in remission Prop: pepcid on AC Dispo: give dose lasix 10/04 check labs; check TFTs; start flomax and finasteride for signs of BPH with urgency and frequency/urinary retention. Family support for anxiety issues- pt left AMA last visit. AV blockade- defer to cardiology. cont AC. 10/05 cont care; replace K; Urinary retention due to BPH- sy placed; 10/06 Doing better; d/c planning; d/c home f/u pcp 1 week and cardiology 2 weeks and urology stable d/c>35mins Juan Carlos Henning MD, PhD.
[2019-10-07 05:49] LABS: BASOPHILS % 0.5 % (0.0-1.0); EOSINOPHILS # (AUTO) 0.2 (0.0-0.4); EOSINOPHILS % 3.3 % (0.0-6.0); HEMATOCRIT 42.2 % (38.2-49.6); HEMOGLOBIN 14.1 g/dL (14.0-18.0); LYMPHOCYTES # (AUTO) 0.7 (1.0-3.2); LYMPHOCYTES % 11.8 % (18.0-39.1); MEAN CORPUSCULAR HEMOGLOBIN 29.9 pg (28-32); MEAN CORPUSCULAR HGB CONC 33.4 g/dL (31-35); MEAN CORPUSCULAR VOLUME 89.4 fL (81-99); MONOCYTES # (AUTO) 0.4 (0.2-0.8); MONOCYTES % 7.5 % (4.4-11.3); NEUTROPHILS # (AUTO) 4.4 (2.1-6.9); NEUTROPHILS % 76.7 % (38.7-80.0); PLATELET COUNT 198 x10e3/uL (140-360); RED BLOOD COUNT 4.72 x10e6/uL (4.3-5.7); RED CELL DISTRIBUTION WIDTH 13.4 % (11.7-14.4)
[2019-10-07] MEDS ORDERED: FLOMAX0.4 MG PO (05:50)
[2019-10-07] MEDS ORDERED: TOPROL XL50 MG PO (05:50)
[2019-10-07] MEDS ORDERED: FINASTERIDE5 MG PO (05:50)
[2019-10-07] MEDS ORDERED: AMIODARONE HCL200 MG PO (05:50)
[2019-10-07 06:04] LABS: ANION GAP 9.4 mmol/L (8-16); CALCIUM 8.8 mg/dL (8.4-10.2); CREATININE, SERUM 1.45 mg/dL (0.72-1.25); POTASSIUM 3.4 mmol/L (3.5-5.1)
[2019-10-07 08:26] VITALS: BP 126/84
[2019-10-07] MEDS ORDERED: METOPROLOL SUCCINATE 50 MG TAB XL PO SCH (09:00)
[2019-10-07] MEDS ORDERED: POTASSIUM CHLORIDE 20 MEQ TAB CR PO NR (09:30)
[2019-10-07] MEDS: FINASTERIDE 5 MG TAB PO SCH (10:05)
[2019-10-07] MEDS: BENZONATATE 100 MG CAP PO SCH (10:05)
[2019-10-07] MEDS: METHIMAZOLE 5 MG TAB PO SCH (10:05)
[2019-10-07] MEDS: FUROSEMIDE INJ 10 MG/ML 2 ML VIAL IV SCH (10:05)
[2019-10-07] MEDS: HALOPERIDOL 5 MG TAB PO SCH (10:05)
[2019-10-07] MEDS: TAMSULOSIN HCL 0.4 MG CAP PO SCH (10:05)
[2019-10-07] MEDS: AMIODARONE HCL 200 MG TAB PO SCH (10:05)
[2019-10-07] MEDS: LISINOPRIL 10 MG TAB PO SCH (10:05)
[2019-10-07] MEDS: APIXABAN 5 MG TABLET PO SCH (10:05)
[2019-10-07 12:09] VITALS: BP 113/81
--- NOTE | 2019-10-07 13:54 | NUR ---
cardio rounded, cleared pt for dc.
--- NOTE | 2019-10-07 14:40 | NUR ---
pt stable. reviewed dc instructions with pt and family. verbalized understanding
--- NOTE | 2019-10-07 16:37 | Progress Note ---
DATE: 10/07/2019 Cardiology progress note SUBJECTIVE: The patient denies chest pain or shortness of breath. He wishes to be discharged home. OBJECTIVE: VITAL SIGNS: Temperature 97 degrees, pulse 80, respiratory rate 18, blood pressure 113/81, and oxygen saturation 96% on room air. GENERAL: Awake, alert, no acute distress. LUNGS: Clear to auscultation bilaterally. No wheezes or crackles. CARDIOVASCULAR: Normal rate. Irregularly irregular. No murmur. Normal S1, S2. ABDOMEN: Soft, nontender. EXTREMITIES: No edema. CARDIAC MEDICATIONS: 1. Metoprolol succinate 300 mg p.o. daily. 2. Amiodarone 200 mg p.o. b.i.d. 3. Furosemide 20 mg IV b.i.d. 4. Lexapro 10 mg p.o. daily. 5. Apixaban 5 mg p.o. b.i.d. LABORATORY DATA: WBC 5.75, hemoglobin 14.1, hematocrit 42.2, and platelets 198. Sodium 142, potassium 3.4, chloride 108, CO2 of 28, BUN 20, and creatinine 1.45. Telemetry was personally reviewed and interpreted revealing atrial fibrillation, rate controlled. IMPRESSION: 1. Atrial fibrillation with rapid ventricular response, now rate controlled. 2. Hypertension. 3. Hyperthyroidism. 4. Chronic kidney disease. 5. Urinary retention. RECOMMENDATIONS: The patient's blood pressure is controlled. Continue current cardiac medications. He is on apixaban for CVA prophylaxis. He can be discharged from a cardiac standpoint to follow up with Dr. Davis in the office in 2 weeks. Thank you for this consult. We will continue to follow. Shawna Gonsales MD ABS/MODL /[id number]
== END 2019-10-07 16:13 | disposition home or self-care (01) | DRG 308 ==
LOC: ER 05:02 → ERHOLD 06:28 → IMCU 23:53
PROVIDERS: ADMIT Internal Medicine; ATTEND Internal Medicine
DX: I48.0 Paroxysmal atrial fibrillation (principal); G93.41 Metabolic encephalopathy; J90 Pleural effusion, not elsewhere classified; N39.0 Urinary tract infection, site not specified; N17.9 Acute kidney failure, unspecified; J06.9 Acute upper respiratory infection, unspecified; E05.90 Thyrotoxicosis, unspecified without thyrotoxic crisis or storm; N18.3 Chronic kidney disease, stage 3 (moderate); Z88.1 Allergy status to other antibiotic agents; Z88.2 Allergy status to sulfonamides; Z88.8 Allergy status to other drugs, medicaments and biological substances; Z87.891 Personal history of nicotine dependence; N39.41 Urge incontinence; D64.9 Anemia, unspecified; I12.9 Hypertensive chronic kidney disease with stage 1 through stage 4 chronic kidney disease, or unspecified chronic kidney disease; N40.1 Benign prostatic hyperplasia with lower urinary tract symptoms; R33.8 Other retention of urine; R35.0 Frequency of micturition; R39.15 Urgency of urination
CPT/HCPCS: 36415; 36600; 71046; 80048; 80053; 81001; 82550; 82553; 82805; 83605; 83735; 83880; 84484; 85025; 85610; 85730; 87040; 87086; 87186; 87400; 87493; 93005; 94640; 94760; 99285; J0696; J1160; J1940; J7050

== ENCOUNTER 2020-01-12 11:35 | Inpatient (IN) | payer MEDICARE, OTHER ==
[~2020-01-12] VITALS: Ht 172.7 cm; Wt 79.0 kg
[~2020-01-12 11:35] MED LIST changes: +AMIODARONE HCL200 MG PO; +ELIQUIS5 MG PO; +FINASTERIDE5 MG PO; +FLOMAX0.4 MG PO; +LISINOPRIL10 MG PO; +TOPROL XL50 MG PO
--- OUTSIDE RECORDS SUMMARY | 2020-01-12 11:39 | XMS REPORT ---
Author Author [facility] t Organization [facility] Address [address] [place] [address] Phone Unavailable Care Team Providers Care Wrapping Machine Helper Name Role Phone ENRIQUE WILKINSON MD PCP MARIELLE MUELLER Attphys Unavailable DAVID, Yamel LAIKESHAV Attphys Unavailable JUAN CARLOS BLACK Admignacia Unavailable Payers Payer Name Policy Type Policy Number Effective Date Expiration Date S mio Umr Ppo [id number] 2010 00:00:00 [facility] Problems Condition Name Condition Details Condition Category Status Onset Date Resolution Date Last Treatment Date Treating Clinician Comments Source Atrial fibrillation with rapid ventricular response At [facility] fibrillation with RVR Problem Active [facility] Chest pain Chest pain Problem Active [facility] Acute on chronic congestive heart failure CHF exacerbation Problem Activ e [facility] Allergies, Adverse Reactions, Alerts Allergy Name Allergy Type Status Severity Reaction(s) Onset Date Inacti ve Date Treating Clinician Comments Source Prednisone Allergy to Substance Active Mild RASH 2011-02-23 00:00:00 [facility] Amoxicillin Allergy to Substance Active Mild RASH 2011-02-23 00:00:00 [facility] SULFA Allergy to Substance Active Mild RASH 2011-02-23 00:00:00 [facility] Medications Ordered Medication Name Filled Medication Name Start Date Stop Da te Current Medication? Ordering Clinician Indication Dosage Frequency Signature (SIG) Comments Components Source Amiodarone Hcl 200 Mg Tablet Amiodarone Hcl 200 Mg Tablet 2019-09-17 2 00:00:00 Yes Juan Carlos Black Md 200 Twice A Day At 10:00AM And 10:00P M [facility] Finasteride 5 Mg Tablet Finasteride 5 Mg Tablet 2019-10-07 00:00:00 Yes Juan Carlos Black Md 5 Daily [facility] Metoprolol Succinate (Toprol Xl) 50 Mg Tab.er.24h Meto prolol Succinate (Toprol Xl) 50 Mg Tab.er.24h 2019-10-07 00:00:00 Yes Juan Carlos Black Md 300 Daily [facility] Tamsulosin Hcl (Flomax*) 0.4 Mg Cap Tamsulosin Hcl (Flomax*) 0.4 Mg Cap 2019-10-07 00:00:00 Yes Juan Carlos Black Md .4 Every 12 H ours [facility] Apixaban (Eliquis) 5 Mg Tablet Apixaban (Eliquis) 5 Mg Tablet Yes 5 Twice A Day [facility] Lisinopril 10 Mg Tablet Lisinopril 10 Mg Tablet Yes 10 Daily [facility] Methimazole 5 Mg Tablet Methimazole 5 Mg Tablet Yes 5 Daily [facility] Metoprolol Succinate 50 Mg Tab.er.24h, 50 Mg Oral Meto prolol Succinate 50 Mg Tab.er.24h, 50 Mg Oral 2019-10-07 00:00:00 No 50 D aily [facility] Aspirin (Aspirin Ec) 81 Mg Tablet., 81 Mg Oral Aspir in (Aspirin Ec) 81 Mg Tablet., 81 Mg Oral 2019-10-03 00:00:00 No 81 Da jai [facility] Htn Pill , Oral Htn Pill , Oral 2019-09-27 00:00:00 No Daily [facility] Thyroid Pill , Oral Thyroid Pill , Oral 2019-09-27 00:00:00 No Daily [facility] Procedures Procedure Date / Time Performed Performing Clinician [facility] e X-ray of chest, two views 2019-10-03 00:00:[address] [facility] Encounters Start Date/Time End Date/Time Encounter Type Admission Type Attendi [facility] Care Department Encounter ID Source 2019-10-03 06:28:00 2019-10-07 16:13:00 Discharged Inpatient 1 MARIELLE MUELLER [facility] [id number] [facility] 2019-09-26 16:51:00 2019-09-28 05:30:00 Discharged Inpatient LETTY [facility] [id number] [facility] Results Test Description Test Time Test Comments Results Result Comments Source Urine Culture 2019-10-07 08:34:00 Test Item Urine Culture (test code = 630-4) No Result Data Provided [facility] [id number] 06:06:00* Test Item Value Reference Range Interpretation Comments Sodium Level (test code = 2951-2) 142 136-145 [facility] CenterPotassium Oahcl6291-65-27 06:06:00* Test Item Value Reference Range Interpretation Comments Potassium Level (test code = 2823-3) 3.4 3.5-5.1 L [facility] CenterChloride Lyyub0720-77-49 06:06:00* Test Item Value Reference Range Interpretation Comments Chloride Level (test code = 2075-0) 108 98-107 H [facility] CenterCarbon Dioxide Ezwoo2504-57-25 06:06:00* Test Item Value Reference Range Interpretation Comments Carbon Dioxide Level (test code = 2028-9) 28 22-29 [facility] CenterAnion Dcv2700-03-34 06:06:00* Test Item Value Reference Range Interpretation Comments Anion Gap (test code = 97454-7) 9.4 8-16 [facility] CenterBlood Urea Jrrliqsx5266-95-45 06:06:00* Test Item Value Reference Range Interpretation Comments Blood Urea Nitrogen (test code = 3094-0) 20 7-26 [facility] CenterCreatinine2020-02-22 06:06:00* Test Item Value Reference Range Interpretation Comments Creatinine (test code = 2160-0) 1.45 0.72-1.25 H [facility] CenterBUN/Creatinine Qkztk7896-86-57 06:06:00* Test Item Value Reference Range Interpretation Comments BUN/Creatinine Ratio (test code = 3097-3) 14 6-25 [facility] CenterEstimat Glomerular Filtration Rate 2019-10-07 06:06:00* Test Item Value Reference Range Interpretation Comments Estimat Glomerular Filtration Rate (test code = 764975799) 48 >60 L Ranges were taken from the National Kidney Disease Education Program and the On license of [facility] Kidney Foundation literature.Reference ranges:60 or greater: Akzida02-34 ( for 3 consecutive months): Chronic kidney disease 15 or less: Kidney failureMethodist Dallas Medical CenterGlucose Oolke5239-24-17 06:06:00* Test Item Value Reference Range Interpretation Comments Glucose Level (test code = YGY6428) 131 74-118 H [facility] CenterCalcium Phowt9561-85-57 06:06:00* Test Item Value Reference Range Interpretation Comments Calcium Level (test code = 80971-6) 8.8 8.4-10.2 [facility] CenterWhite Blood Toiyb0300-87-70 05:53:00* Test Item Value Reference Range Interpretation Comments White Blood Count (test code = 6690-2) 5.75 4.8-10.8 [facility] CenterRed Blood Qprbn1873-18-52 05:53:00* Test Item Value Reference Range Interpretation Comments Red Blood Count (test code = 789-8) 4.72 4.3-5.7 [facility] CenterHemoglobin2020-02-22 05:53:00* Test Item Value Reference Range Interpretation Comments Hemoglobin (test code = 40686-5) 14.1 14.0-18.0 [facility] CenterHematocrit2020-02-22 05:53:00* Test Item Value Reference Range Interpretation Comments Hematocrit (test code = 4544-3) 42.2 38.2-49.6 [facility] CenterMean Corpuscular Ysmtgp3642-18-32 05:53:00* Test Item Value Reference Range Interpretation Comments Mean Corpuscular Volume (test code = 787-2) 89.4 81-99 [facility] CenterMean Corpuscular Kkyybnomxo5366-00-90 05:53:00* Test Item Value Reference Range Interpretation Comments Mean Corpuscular Hemoglobin (test code = 785-6) 29.9 28-32 [facility] CenterMean Corpuscular Hemoglobin Concent 2019-10-07 05:53:00* Test Item Value Reference Range Interpretation Comments Mean Corpuscular Hemoglobin Concent (test code = 786-4) 33.4 31-35 [facility] CenterRed Cell Distribution Ewpgy1332-79-48 05:53:00* Test Item Value Reference Range Interpretation Comments Red Cell Distribution Width (test code = 17128-2) 13.4 11.7 -14.4 [facility] CenterPlatelet Gqgst7309-81-04 05:53:00* Test Item Value Reference Range Interpretation Comments Platelet Count (test code = 777-3) 198 140-360 [facility] CenterNeutrophils (%) (Auto)2019-10-07 05:53:00 * Test Item Value Reference Range Interpretation Comments Neutrophils (%) (Auto) (test code = 18532-0) 76.7 38.7-80.0 [facility] CenterLymphocytes (%) (Auto)2019-10-07 05:53:00 * Test Item Value Reference Range Interpretation Comments Lymphocytes (%) (Auto) (test code = 736-9) 11.8 18.0-39.1 L [facility] CenterMonocytes (%) (Auto)2019-10-07 05:53:00* Test Item Value Reference Range Interpretation Comments Monocytes (%) (Auto) (test code = 5905-5) 7.5 4.4-11.3 [facility] CenterEosinophils (%) (Auto)2019-10-07 05:53:00 * Test Item Value Reference Range Interpretation Comments Eosinophils (%) (Auto) (test code = 713-8) 3.3 0.0-6.0 [facility] CenterBasophils (%) (Auto)2019-10-07 05:53:00* Test Item Value Reference Range Interpretation Comments Basophils (%) (Auto) (test code = 706-2) 0.5 0.0-1.0 [facility] CenterIM GRANULOCYTES %2019-10-07 05:53:00* Test Item Value Reference Range Interpretation Comments IM GRANULOCYTES % (test code = IM GRANULOCYTES %) 0.2 0.0- 1.0 [facility] CenterNeutrophils # (Auto)2019-10-07 05:53:00* Test Item Value Reference Range Interpretation Comments Neutrophils # (Auto) (test code = 751-8) 4.4 2.1-6.9 [facility] CenterLymphocytes # (Auto)2019-10-07 05:53:00* Test Item Value Reference Range Interpretation Comments Lymphocytes # (Auto) (test code = 56529-5) 0.7 1.0-3.2 L [facility] CenterMonocytes # (Auto)2019-10-07 05:53:00* Test Item Value Reference Range Interpretation Comments Monocytes # (Auto) (test code = 742-7) 0.4 0.2-0.8 [facility] CenterEosinophils # (Auto)2019-10-07 05:53:00* Test Item Value Reference Range Interpretation Comments Eosinophils # (Auto) (test code = 711-2) 0.2 0.0-0.4 [facility] CenterBasophils # (Auto)2019-10-07 05:53:00* Test Item Value Reference Range Interpretation Comments Basophils # (Auto) (test code = 704-7) 0.0 0.0-0.1 [facility] CenterAbsolute Immature Granulocyte (auto 2019-10-07 05:53:00* Test Item Value Reference Range Interpretation Comments Absolute Immature Granulocyte (auto (jessi t code = Absolute Immature Granulocyte (auto) 0.01 0-0.1 [facility] CenterBlood Wuykvwj5087-21-84 05:29:00* Test Item Value Reference Range Interpretation Comments Blood Culture (test code = 15574131) NO GROWTH AFTER 72 HOURS [facility] CenterClostridium Difficile Toxin A & B 2019-10-04 14:49:00* Test Item Value Reference Range Interpretation Comments Clostridium Difficile Toxin A & B (test code = 294128118) NEGATIVE NEGATIVE Testing on stool aspirate specimens is outside gravity flow irrigator claims since specime n type not validated on this assay.[facility] Magnesium Pqpzm3805-67-91 10:12:00* Test Item Value Reference Range Interpretation Comments Magnesium Level (test code = 92464-8) 1.8 1.3-2.1 [facility] CenterUrine IJT6982-22-67 18:15:00* Test Item Value Reference Range Interpretation Comments Urine WBC (test code = 5821-4) 11-20 0-5 H [facility] CenterUrine [id number] 18:15:00* Test Item Value Reference Range Interpretation Comments Urine RBC (test code = 28797-3) 6-10 0-5 H [facility] CenterUrine Jjefdtnr8785-50-73 18:15:00* Test Item Value Reference Range Interpretation Comments Urine Bacteria (test code = 68730-8) MODERATE NONE H [facility] CenterUrine Epithelial Iairf9201-74-14 18:15:00 * Test Item Value Reference Range Interpretation Comments Urine Epithelial Cells (test code = 05567-4) FEW NONE [facility] CenterUrine Amorphous Ehtycdoq4706-10-08 18:15:00* Test Item Value Reference Range Interpretation Comments Urine Amorphous Sediment (test code = 8246-1) MODERATE FEW H [facility] CenterUrine Xspae3729-64-75 18:06:00* Test Item Value Reference Range Interpretation Comments Urine Color (test code = 5778-6) YELLOW YELLOW [facility] CenterUrine Qwbsxkj2426-97-76 18:06:00* Test Item Value Reference Range Interpretation Comments Urine Clarity (test code = 15150-6) HAZY CLEAR [facility] CenterUrine Specific Zgzqvrn9674-67-21 18:06:00 * Test Item Value Reference Range Interpretation Comments Urine Specific [place] (test code = 5811-5) 1.020 1.010-1.02 5 [facility] CenterUrine [id number] 18:06:00* Test Item Value Reference Range Interpretation Comments Urine pH (test code = 16981-2) 5 5-7 [facility] CenterUrine Leukocyte Nqrjmomu5917-44-17 18:06:00* Test Item Value Reference Range Interpretation Comments Urine Leukocyte Esterase (test code = 5799-2) 2+ NEGATIVE H [facility] CenterUrine Zbdsyec4653-56-85 18:06:00* Test Item Value Reference Range Interpretation Comments Urine Nitrite (test code = 37177-5) NEGATIVE NEGATIVE [facility] CenterUrine Lvnafre9337-71-25 18:06:00* Test Item Value Reference Range Interpretation Comments Urine Protein (test code = 5804-0) 1+ NEGATIVE H [facility] CenterUrine Glucose (UA)2019-10-03 18:06:00* Test Item Value Reference Range Interpretation Comments Urine Glucose (UA) (test code = 2349-9) NEGATIVE NEGATIVE [facility] CenterUrine Ilcqxfw1168-79-54 18:06:00* Test Item Value Reference Range Interpretation Comments Urine Ketones (test code = 77725-0) NEGATIVE NEGATIVE [facility] Elpeimlrplne8248-03-86 18:06:00* Test Item Value Reference Range Interpretation Comments Urine Urobilinogen (test code = 78156-9) 0.2 0.2-1 [facility] CenterUrine Hxzjqwrco0646-72-35 18:06:00* Test Item Value Reference Range Interpretation Comments Urine Bilirubin (test code = 1978-6) NEGATIVE NEGATIVE [facility] CenterUrine Uxgpj9418-64-23 18:06:00* Test Item Value Reference Range Interpretation Comments Urine Blood (test code = 15169-3) 2+ NEGATIVE H [facility] CenterArterial Blood bE2085-98-77 08:52:00* Test Item Value Reference Range Interpretation Comments Arterial Blood pH (test code = 2744-1) 7.42 7.31-7.41 H [facility] CenterArterial Blood Partial Pressure CO2 2019-10-03 08:52:00* Test Item Value Reference Range Interpretation Comments Arterial Blood Partial Pressure CO2 (test code = 2019-03) 34 41-51 L [facility] CenterArterial Blood Partial Pressure O2 2019-10-03 08:52:00* Test Item Value Reference Range Interpretation Comments Arterial Blood Partial Pressure O2 (test code = 2019-03) 61 80-105 L [facility] CenterArterial Blood [id number] 08:52:00* Test Item Value Reference Range Interpretation Comments Arterial Blood HCO3 (test code = 1960-4) 22 23-28 L [facility] CenterArterial Blood Base Fmyiih6089-33-20 08:52:00* Test Item Value Reference Range Interpretation Comments Arterial Blood Base Excess (test code = 1925-7) -3.0 -2-3 L [facility] CenterArterial Blood Oxygen Saturation 2019-10-03 08:52:00* Test Item Value Reference Range Interpretation Comments Arterial Blood Oxygen Saturation (test code = 2708-6) 91.0 95-98 L [facility] CenterFiO22020-02-18 08:52:00* Test Item Value Reference Range Interpretation Comments FiO2 (test code = FiO2) 28 NASAL CANNULADREW FROM LEFT RADIALMethodist [facility] Medical Center Influenza Virus Types A,B Jqvcyyg9901-60-07 08:14:00* Test Item Value Reference Range Interpretation Comments Influenza Virus Types A,B Antigen (test code = 13283-9) NEGATIVE NEGATIVE [facility] CenterB-Type Natriuretic Dcysaxk8686-24-81 06:49:00* Test Item Value Reference Range Interpretation Comments B-Type Natriuretic Peptide (test code = 04718-2) 878.3 0-100 H [facility] CenterCHEST 2 BTXKV3580-59-65 06:32:00 [place] [address] Patient Name: REX BRAUN MR #: [id number] : 1945 Age/Sex: 74/M Req #: [id number] Adm Physician: Ordered by: MARIELLE MUELLER DO Report #: [id number] Location: Room/Bed: Procedure: [id number] D X/CHEST 2 VIEWS Exam Date: Exam Time: REPORT STATUS: Signed EXAMINATION: CHEST 2 VIEWS INDICATION: COUGH, SOB COMPARISON: Chest x-ray 0 FINDINGS: PA and lateral views TUBES and LINES: None. SANKET NGS: Diffuse hyperinflation. No confluent infiltrates. Calcified granuloma in the left lung base. PLEURA: Small bilateral pleural effusions. No pneumo thorax HEART AND MEDIASTINUM: The heart is top normal in size. There are c alcified mediastinal lymph nodes. BONES AND SOFT TISSUES: Degenerative changes of the spine. No focal osseous lesions. Soft tissues are unremarkab le. UPPER ABDOMEN: Unremarkable. IMPRESSION: Pulmonary hyperinflat ion suggestive of small airways disease. Small bilateral pleural effusions. He aled granulomatous inflammation. Signed by: Dr. Art Taylor MD on 10/03/2019 6:33 AM Dictated By: ART TAYLOR MD Electronically Sign ed By: ART TAYLOR MD on 10/03/19 0633 Transcribed By: DIANNE on 0 0633 COPY TO: MARIELLE MUELLER DO Creatine Kinase [id number] 06:02:00* Test Item Value Reference Range Interpretation Comments Creatine Kinase MB (test code = 40908-5) 1.00 0-5.0 [facility] CenterTroponin [id number] 06:02:00* Test Item Value Reference Range Interpretation Comments Troponin I (test code = MFA2142) 0.005 0-0.300 [facility] CenterProthrombin Vgtd2770-26-17 05:55:00* Test Item Value Reference Range Interpretation Comments Prothrombin Time (test code = 5902-2) 18.1 11.9-14.5 H [facility] CenterProthromb Time International Ratio 2019-10-03 05:55:00* Test Item Value Reference Range Interpretation Comments Prothromb Time International Ratio (test code = 6301-6) 1.40 Oral Anticoagulant Therapy INR Values:1. Low Intensity Therapy 1.5 - 2.02 . Moderate Intensity Therapy 2.0 - 3.03. High Intensity Therapy(1) 2.5 - 3. 54. High Intensity Therapy(2) 3.0 - 4.05. Panic Value INR > 5.0 [facility] CenterActivated Partial Thromboplast Time 2019-10-03 05:55:00* Test Item Value Reference Range Interpretation Comments Activated Partial Thromboplast Time (test code = 53054-2) 35.3 23.8-35.5 [facility] CenterLactic Acid Ibmhj5988-38-47 05:54:00* Test Item Value Reference Range Interpretation Comments Lactic Acid Level (test code = Lactic Acid Level) 1.5 0.5- 2.0 [facility] CenterTotal Gzauzhcar4897-17-90 05:54:00* Test Item Value Reference Range Interpretation Comments Total Bilirubin (test code = 1975-2) 1.2 0.2-1.2 [facility] CenterAspartate Amino Transf (AST/SGOT) 2019-10-03 05:54:00* Test Item Value Reference Range Interpretation Comments Aspartate Amino Transf (AST/SGOT) (test code = Aspartate Amino Transf (AST/SGOT)) 25 5-34 [facility] CenterAlanine Aminotransferase (ALT/SGPT) 2019-10-03 05:54:00* Test Item Value Reference Range Interpretation Comments Alanine Aminotransferase (ALT/SGPT) (test code = 1742-6) 34 0-55 [facility] CenterTotal Yjinuai0083-24-35 05:54:00* Test Item Value Reference Range Interpretation Comments Total Protein (test code = 2885-2) 6.2 6.5-8.1 L [facility] CenterAlbumin2020-02-18 05:54:00* Test Item Value Reference Range Interpretation Comments Albumin (test code = 1751-7) 3.5 3.5-5.0 [facility] CenterGlobulin2020-02-18 05:54:00* Test Item Value Reference Range Interpretation Comments Globulin (test code = 76578-6) 2.7 2.3-3.5 [facility] CenterAlbumin/Globulin Vcyia9315-37-19 05:54:00 * Test Item Value Reference Range Interpretation Comments Albumin/Globulin Ratio (test code = 1759-0) 1.3 0.8-2.0 [facility] CenterAlkaline Bhndjjdcvho4133-53-73 05:54:00* Test Item Value Reference Range Interpretation Comments Alkaline Phosphatase (test code = 6768-6) 90 40-150 [facility] CenterCreatine Nozdjt8473-61-74 05:54:00* Test Item Value Reference Range Interpretation Comments Creatine Kinase (test code = 2157-6) 47 30-200 [facility] CenterPlatelet Ekkswonw8282-25-16 08:01:00* Test Item Value Reference Range Interpretation Comments Platelet Estimate (test code = 58558-0) SLIGHTLY DECREASED [facility] CenterPlatelet Morphology Qrpxlsb6885-59-81 08:01:00* Test Item Value Reference Range Interpretation Comments Platelet Morphology Comment (test code = 48013-8) FEW GIANT [facility] CenterRed Cell Morphology Hrcvamn1632-68-83 08:01:00* Test Item Value Reference Range Interpretation Comments Red Cell Morphology Comment (test code = 6742-1) NORMAL [facility] CenterPlatelet Uawewcws2149-89-33 08:01:00* Test Item Value Reference Range Interpretation Comments Platelet Estimate (test code = 29497-5) SLIGHTLY DECREASED [facility] CenterPlatelet Morphology Szedfkf4250-98-79 08:01:00* Test Item Value Reference Range Interpretation Comments Platelet Morphology Comment (test code = 47809-9) FEW GIANT [facility] CenterRed Cell Morphology Mfangqv6715-55-46 08:01:00* Test Item Value Reference Range Interpretation Comments Red Cell Morphology Comment (test code = 6742-1) NORMAL [facility] Centerodium Uufcj4426-96-38 07:20:00* Test Item Value Reference Range Interpretation Comments Sodium Level (test code = 2951-2) 141 136-145 [facility] CenterPotassium Kbmgz5663-22-03 07:20:00* Test Item Value Reference Range Interpretation Comments Potassium Level (test code = 2823-3) 4.3 3.5-5.1 [facility] CenterChloride Qrzta9219-21-23 07:20:00* Test Item Value Reference Range Interpretation Comments Chloride Level (test code = 2075-0) 110 98-107 H [facility] CenterCarbon Dioxide Ieegx6652-00-27 07:20:00* Test Item Value Reference Range Interpretation Comments Carbon Dioxide Level (test code = 2028-9) 21 22-29 L [facility] CenterAnion Nrg1344-80-76 07:20:00* Test Item Value Reference Range Interpretation Comments Anion Gap (test code = 91409-3) 14.3 8-16 [facility] CenterBlood Urea Cberywbb5922-02-32 07:20:00* Test Item Value Reference Range Interpretation Comments Blood Urea Nitrogen (test code = 3094-0) 16 7-26 [facility] CenterCreatinine2020-02-12 07:20:00* Test Item Value Reference Range Interpretation Comments Creatinine (test code = 2160-0) 1.39 0.72-1.25 H [facility] CenterBUN/Creatinine Lwqsy4053-26-78 07:20:00* Test Item Value Reference Range Interpretation Comments BUN/Creatinine Ratio (test code = 3097-3) 12 6- [facility] CenterEstimat Glomerular Filtration Rate 2019-09-27 07:20:00* Test Item Value Reference Range Interpretation Comments Estimat Glomerular Filtration Rate (test code = 547004232) 50 >60 L Ranges were taken from the National Kidney Disease Education Program and the [facility] Kidney Foundation literature.Reference ranges:60 or greater: Czlnmy00-88 ( for 3 consecutive months): Chronic kidney disease 15 or less: Kidney failureMethodist Dallas Medical CenterGlucose Lpcio4055-23-81 07:20:00* Test Item Value Reference Range Interpretation Comments Glucose Level (test code = NWS4583) 110 74-118 [facility] CenterCalcium Xycpj4735-35-66 07:20:00* Test Item Value Reference Range Interpretation Comments Calcium Level (test code = 83100-1) 8.7 8.4-10.2 [facility] CenterTotal Yivaplpuc8206-33-89 07:20:00* Test Item Value Reference Range Interpretation Comments Total Bilirubin (test code = 1975-2) 1.9 0.2-1.2 H [facility] CenterAspartate Amino Transf (AST/SGOT) 2019-09-27 07:20:00* Test Item Value Reference Range Interpretation Comments Aspartate Amino Transf (AST/SGOT) (test code = Aspartate Amino Transf (AST/SGOT)) 16 5-34 [facility] CenterAlanine Aminotransferase (ALT/SGPT) 2019-09-27 07:20:00* Test Item Value Reference Range Interpretation Comments Alanine Aminotransferase (ALT/SGPT) (test code = 1742-6) 25 0-55 [facility] CenterTotal Btnpkla6434-56-79 07:20:00* Test Item Value Reference Range Interpretation Comments Total Protein (test code = 2885-2) 5.9 6.5-8.1 L [facility] CenterAlbumin2020-02-12 07:20:00* Test Item Value Reference Range Interpretation Comments Albumin (test code = 1751-7) 3.3 3.5-5.0 L [facility] CenterGlobulin2020-02-12 07:20:00* Test Item Value Reference Range Interpretation Comments Globulin (test code = 11379-1) 2.6 2.3-3.5 [facility] CenterAlbumin/Globulin Inrrv7629-98-20 07:20:00 * Test Item Value Reference Range Interpretation Comments Albumin/Globulin Ratio (test code = 1759-0) 1.3 0.8-2.0 [facility] CenterAlkaline Mwtjclkjbof0499-06-55 07:20:00* Test Item Value Reference Range Interpretation Comments Alkaline Phosphatase (test code = 6768-6) 88 40-150 [facility] CenterTriglycerides Ahtzr6069-41-06 07:20:00* Test Item Value Reference Range Interpretation Comments Triglycerides Level (test code = 2571-8) 51 0-149 [facility] CenterCholesterol Ppafd3457-94-33 07:20:00* Test Item Value Reference Range Interpretation Comments Cholesterol Level (test code = 2093-3) 90 0-199 Less than 200 mg/dL Low Gzsm903 - 239 mg/dL Borderline Iwop306 m g/dl and greater High Risk [facility] CenterLDL Vqqdolnzcvl7474-53-91 07:20:00* Test Item Value Reference Range Interpretation Comments LDL Cholesterol (test code = 2089-1) 43 60-130 [facility] Nholgbqrqmu7434-22-68 07:20:00* Test Item Value Reference Range Interpretation Comments HDL Cholesterol (test code = 2085-9) 37 40-60 L [facility] CenterCholesterol/HDL Amlts5067-69-47 07:20:00 * Test Item Value Reference Range Interpretation Comments Cholesterol/HDL Ratio (test code = 9830-1) 2.4 3.9-4.7 L [facility] CenterTriglycerides Fmldb6781-25-22 07:20:00* Test Item Value Reference Range Interpretation Comments Triglycerides Level (test code = 2571-8) 51 0-149 [facility] CenterCholesterol Musbm4027-05-68 07:20:00* Test Item Value Reference Range Interpretation Comments Cholesterol Level (test code = 2093-3) 90 0-199 Less than 200 mg/dL Low Alqx782 - 239 mg/dL Borderline Blsn284 m g/dl and greater High Risk [facility] CenterLDL Phdyygjihfp8968-07-53 07:20:00* Test Item Value Reference Range Interpretation Comments LDL Cholesterol (test code = 2089-1) 43 60-130 [facility] Lzsdrvvthwl1312-78-57 07:20:00* Test Item Value Reference Range Interpretation Comments HDL Cholesterol (test code = 2085-9) 37 40-60 L [facility] CenterCholesterol/HDL Yitmw8949-76-52 07:20:00 * Test Item Value Reference Range Interpretation Comments Cholesterol/HDL Ratio (test code = 9830-1) 2.4 3.9-4.7 L [facility] CenterWhite Blood Mmgwm7311-92-45 06:45:00* Test Item Value Reference Range Interpretation Comments White Blood Count (test code = 6690-2) 6.21 4.8-10.8 [facility] CenterRed Blood Hsigo9235-21-50 06:45:00* Test Item Value Reference Range Interpretation Comments Red Blood Count (test code = 789-8) 4.22 4.3-5.7 L [facility] CenterHemoglobin2020-02-12 06:45:00* Test Item Value Reference Range Interpretation Comments Hemoglobin (test code = 05118-2) 12.6 14.0-18.0 L [facility] CenterHematocrit2020-02-12 06:45:00* Test Item Value Reference Range Interpretation Comments Hematocrit (test code = 4544-3) 39.1 38.2-49.6 [facility] CenterMean Corpuscular Cgnwhb3876-61-64 06:45:00* Test Item Value Reference Range Interpretation Comments Mean Corpuscular Volume (test code = 787-2) 92.7 81-99 [facility] CenterMean Corpuscular Kckcovgijp2097-13-99 06:45:00* Test Item Value Reference Range Interpretation Comments Mean Corpuscular Hemoglobin (test code = 785-6) 29.9 28-32 [facility] CenterMean Corpuscular Hemoglobin Concent 2019-09-27 06:45:00* Test Item Value Reference Range Interpretation Comments Mean Corpuscular Hemoglobin Concent (test code = 786-4) 32.2 31-35 [facility] CenterRed Cell Distribution Wghsh1141-93-29 06:45:00* Test Item Value Reference Range Interpretation Comments Red Cell Distribution Width (test code = 94219-4) 14.3 11.7 -14.4 [facility] CenterPlatelet Pstfg9065-55-41 06:45:00* Test Item Value Reference Range Interpretation Comments Platelet Count (test code = 777-3) 119 140-360 L [facility] CenterNeutrophils (%) (Auto)2019-09-27 06:45:00 * Test Item Value Reference Range Interpretation Comments Neutrophils (%) (Auto) (test code = 22917-2) 71.1 38.7-80.0 [facility] CenterLymphocytes (%) (Auto)2019-09-27 06:45:00 * Test Item Value Reference Range Interpretation Comments Lymphocytes (%) (Auto) (test code = 736-9) 16.9 18.0-39.1 L [facility] CenterMonocytes (%) (Auto)2019-09-27 06:45:00* Test Item Value Reference Range Interpretation Comments Monocytes (%) (Auto) (test code = 5905-5) 10.6 4.4-11.3 [facility] CenterEosinophils (%) (Auto)2019-09-27 06:45:00 * Test Item Value Reference Range Interpretation Comments Eosinophils (%) (Auto) (test code = 713-8) 0.8 0.0-6.0 [facility] CenterBasophils (%) (Auto)2019-09-27 06:45:00* Test Item Value Reference Range Interpretation Comments Basophils (%) (Auto) (test code = 706-2) 0.3 0.0-1.0 [facility] CenterIM GRANULOCYTES %2019-09-27 06:45:00* Test Item Value Reference Range Interpretation Comments IM GRANULOCYTES % (test code = IM GRANULOCYTES %) 0.3 0.0- 1.0 [facility] CenterNeutrophils # (Auto)2019-09-27 06:45:00* Test Item Value Reference Range Interpretation Comments Neutrophils # (Auto) (test code = 751-8) 4.4 2.1-6.9 [facility] CenterLymphocytes # (Auto)2019-09-27 06:45:00* Test Item Value Reference Range Interpretation Comments Lymphocytes # (Auto) (test code = 40577-4) 1.1 1.0-3.2 [facility] CenterMonocytes # (Auto)2019-09-27 06:45:00* Test Item Value Reference Range Interpretation Comments Monocytes # (Auto) (test code = 742-7) 0.7 0.2-0.8 [facility] CenterEosinophils # (Auto)2019-09-27 06:45:00* Test Item Value Reference Range Interpretation Comments Eosinophils # (Auto) (test code = 711-2) 0.1 0.0-0.4 [facility] CenterBasophils # (Auto)2019-09-27 06:45:00* Test Item Value Reference Range Interpretation Comments Basophils # (Auto) (test code = 704-7) 0.0 0.0-0.1 [facility] CenterAbsolute Immature Granulocyte (auto 2019-09-27 06:45:00* Test Item Value Reference Range Interpretation Comments Absolute Immature Granulocyte (auto (jessi t code = Absolute Immature Granulocyte (auto) 0.02 0-0.1 [facility] CenterCreatine Kinase ML3112-84-17 06:11:00* Test Item Value Reference Range Interpretation Comments Creatine Kinase MB (test code = 02893-3) 1.20 0-5.0 [facility] CenterTroponin R9149-04-56 06:11:00* Test Item Value Reference Range Interpretation Comments Troponin I (test code = XFO2350) 0.005 0-0.300 [facility] CenterCreatine Tnbtmi1885-10-01 05:56:00* Test Item Value Reference Range Interpretation Comments Creatine Kinase (test code = 2157-6) 21 30-200 L [facility] Conpniszc4964-11-12 18:57:00* Test Item Value Reference Range Interpretation Comments Free Thyroxine (test code = 3024-7) 0.78 0.8-1.8 L [facility] Ieetgybrl3866-66-97 18:57:00* Test Item Value Reference Range Interpretation Comments Free Thyroxine (test code = 3024-7) 0.78 0.8-1.8 L [facility] CenterCHEST SINGLE (PORTABLE)2019-09-26 16:35:00 [place] [id number] Patient Name: REX BRAUN MR #: [id number] : 1945 Age/Sex: 74/M Req #: [id number] Adm Physician: Ordered by: LETTY HERNANDEZ MD Report #: [id number] Location: ER Room/Bed: Procedure: [id number] DX/C HEST SINGLE (PORTABLE) Exam Date: 09/26/19 Exam Time : 1530 REPORT STATUS: Signed [address] [facility], portable AP view History: Shortness of breath chest pain Compariso n: No comparisons available for review IMPRESSION: The cardiac silhoue tte is magnified by portable technique. Retrocardiac opacity may be secondary to atelectasis or consolidation. The right lung is grossly clear. No sizable p leural effusion or pneumothorax. Signed by: Cezar Balderrama MD on 09/26/19 4:35 PM Dictated By: CEZAR BALDERRAMA MD 34 Transcribed By: DIANNE on 09/26/19 163 COPY TO: LETTY HERNANDEZ MD Thyroid Stimulating Hormone (TSH) 2019-09-26 16:34:00* Test Item Value Reference Range Interpretation Comments Thyroid Stimulating Hormone (TSH) (test code = 31696-3) 0.762 0.350-4.940 [facility] CenterThyroid Stimulating Hormone (TSH) 2019-09-26 16:34:00* Test Item Value Reference Range Interpretation Comments Thyroid Stimulating Hormone (TSH) (test code = 29128-3) 0.762 0.350-4.940 [facility] CenterB-Type Natriuretic Eadlcyd5577-23-41 16:30:00* Test Item Value Reference Range Interpretation Comments B-Type Natriuretic Peptide (test code = 97350-6) 498.7 0-100 H [facility] CenterUrine AWH9939-62-89 16:22:00* Test Item Value Reference Range Interpretation Comments Urine WBC (test code = 5821-4) NONE 0-5 [facility] CenterUrine QRK8981-05-55 16:22:00* Test Item Value Reference Range Interpretation Comments Urine RBC (test code = 92182-1) 0-5 0-5 [facility] CenterUrine Lhqtilwa1723-95-75 16:22:00* Test Item Value Reference Range Interpretation Comments Urine Bacteria (test code = 14110-9) MODERATE NONE H [facility] CenterUrine Epithelial Apkni4118-96-93 16:22:00 * Test Item Value Reference Range Interpretation Comments Urine Epithelial Cells (test code = 28719-0) FEW NONE [facility] CenterUrine Lhbub8687-97-09 16:22:00* Test Item Value Reference Range Interpretation Comments Urine Mucus (test code = 8247-9) MODERATE RARE H [facility] CenterUrine Zvtgt2320-07-36 16:22:00* Test Item Value Reference Range Interpretation Comments Urine Mucus (test code = 8247-9) MODERATE RARE H [facility] CenterProthrombin Csuw3828-78-68 16:21:00* Test Item Value Reference Range Interpretation Comments Prothrombin Time (test code = 5902-2) 16.0 11.9-14.5 H [facility] CenterProthromb Time International Ratio 2019-09-26 16:21:00* Test Item Value Reference Range Interpretation Comments Prothromb Time International Ratio (test code = 6301-6) 1.20 Oral Anticoagulant Therapy INR Values:1. Low Intensity Therapy 1.5 - 2.02 . Moderate Intensity Therapy 2.0 - 3.03. High Intensity Therapy(1) 2.5 - 3. 54. High Intensity Therapy(2) 3.0 - 4.05. Panic Value INR > 5.0 [facility] CenterActivated Partial Thromboplast Time 2019-09-26 16:21:00* Test Item Value Reference Range Interpretation Comments Activated Partial Thromboplast Time (test code = 43720-8) 32.6 23.8-35.5 [facility] CenterMagnesium Pvcce1577-42-85 16:18:00* Test Item Value Reference Range Interpretation Comments Magnesium Level (test code = 17980-6) 1.8 1.3-2.1 [facility] CenterUrine Pfjjm8648-67-20 16:08:00* Test Item Value Reference Range Interpretation Comments Urine Color (test code = 5778-6) ORANGE YELLOW [facility] CenterUrine Qqvwfda9056-23-61 16:08:00* Test Item Value Reference Range Interpretation Comments Urine Clarity (test code = 91910-3) CLEAR CLEAR [facility] CenterUrine Specific Surzwhm6259-59-08 16:08:00 * Test Item Value Reference Range Interpretation Comments Urine Specific [place] (test code = 5811-5) >=1.030 1.010-1.02 5 [facility] CenterUrine wQ1429-35-30 16:08:00* Test Item Value Reference Range Interpretation Comments Urine pH (test code = 78536-4) 5.5 5-7 [facility] CenterUrine Leukocyte Witlqvsh0789-26-73 16:08:00* Test Item Value Reference Range Interpretation Comments Urine Leukocyte Esterase (test code = 5799-2) NEGATIVE NEGATIVE [facility] CenterUrine Zxjfoev6258-58-12 16:08:00* Test Item Value Reference Range Interpretation Comments Urine Nitrite (test code = 82759-8) NEGATIVE NEGATIVE [facility] CenterU[facility] Rwwskmu4194-65-97 16:08:00* Test Item Value Reference Range Interpretation Comments Urine Protein (test code = 5804-0) NEGATIVE NEGATIVE [facility] CenterUrine Glucose (UA)2019-09-26 16:08:00* Test Item Value Reference Range Interpretation Comments Urine Glucose (UA) (test code = 2349-9) NEGATIVE NEGATIVE [facility] CenterUrine Humaawq6500-06-71 16:08:00* Test Item Value Reference Range Interpretation Comments Urine Ketones (test code = 44151-7) NEGATIVE NEGATIVE [facility] CenterU[facility] Cjlybakeyksw4087-62-95 16:08:00* Test Item Value Reference Range Interpretation Comments Urine Urobilinogen (test code = 29169-4) 2.0 0.2-1 [facility] CenterU[facility] Wnwbwdgku4446-71-83 16:08:00* Test Item Value Reference Range Interpretation Comments Urine Bilirubin (test code = 1978-6) SMALL NEGATIVE [facility] Buyft9421-91-18 16:08:00* Test Item Value Reference Range Interpretation Comments Urine Blood (test code = 85031-6) NEGATIVE NEGATIVE [facility]
--- OUTSIDE RECORDS SUMMARY | 2020-01-12 12:59 | XMS REPORT ---
Author Author [facility] t Organization [facility] Address [address] [place] [address] Phone Unavailable Care Team Providers Care Nut Roaster Name Role Phone ENRIQUE WILKINSON MD PCP MARIELLE MUELLER Attphys Unavailable DAVID, Yamel LAIKESHAV Attphys Unavailable JUAN CARLOS BLACK Admignacia Unavailable Payers Payer Name Policy Type Policy Number Effective Date Expiration Date S mio Umr Ppo [id number] 2010 00:00:00 [facility] Problems Condition Name Condition Details Condition Category Status Onset Date Resolution Date Last Treatment Date Treating Clinician Comments Source Atrial fibrillation with rapid ventricular response At [facility] fibrillation with RVR Problem Active [facility] Chest pain Chest pain Problem Active C [facility] Acute on chronic congestive heart failure CHF exacerbation Problem Activ e [facility] Allergies, Adverse Reactions, Alerts Allergy Name Allergy Type Status Severity Reaction(s) Onset Date Inacti ve Date Treating Clinician Comments Source Prednisone Allergy to Substance Active Mild RASH 2011-02-23 00:00:00 [facility] Amoxicillin Allergy to Substance Active Mild RASH 2011-02-23 00:00:00 [facility] SULFA Allergy to Substance Active Mild RASH 2011-02-23 00:00:00 [facility] Medications Ordered Medication Name Filled Medication Name Start Date Stop Da te Current Medication? Ordering Clinician Indication Dosage Frequency Signature (SIG) Comments Components Source Amiodarone Hcl 200 Mg Tablet Amiodarone Hcl 200 Mg Tablet 2019-09-17 2 00:00:00 Yes Juan Carlos Black Md 200 Twice A Day At 10:00AM And 10:00P M [facility] Finasteride 5 Mg Tablet Finasteride 5 Mg Tablet 2019-10-07 00:00:00 Yes Juan Carlos Black Md 5 Daily [facility] Metoprolol Succinate (Toprol Xl) 50 Mg Tab.er.24h Meto prolol Succinate (Toprol Xl) 50 Mg Tab.er.24h 2019-10-07 00:00:00 Yes Juan Carlos Black Md 300 Daily [facility] Tamsulosin Hcl (Flomax*) 0.4 Mg Cap Tamsulosin Hcl (Flomax*) 0.4 Mg Cap 2019-10-07 00:00:00 Yes Juan Carlos Black Md .4 Every 12 H ours [facility] Apixaban (Eliquis) 5 Mg Tablet Apixaban (Eliquis) 5 Mg Tablet Yes 5 Twice A Day [facility] Lisinopril 10 Mg Tablet Lisinopril 10 Mg Tablet Yes 10 Daily [facility] Methimazole 5 Mg Tablet Methimazole 5 Mg Tablet Yes 5 Daily [facility] Metoprolol Succinate 50 Mg Tab.er.24h, 50 Mg Oral Meto prolol Succinate 50 Mg Tab.er.24h, 50 Mg Oral 2019-10-07 00:00:00 No 50 D aily [facility] Aspirin (Aspirin Ec) 81 Mg Tablet., 81 Mg Oral Aspir in (Aspirin Ec) 81 Mg Tablet., 81 Mg Oral 2019-10-03 00:00:00 No 81 Da jai [facility] Htn Pill , Oral Htn Pill , Oral 2019-09-27 00:00:00 No Daily [facility] Thyroid Pill , Oral Thyroid Pill , Oral 2019-09-27 00:00:00 No Daily [facility] Procedures Procedure Date / Time Performed Performing Clinician [facility] e X-ray of chest, two views 2019-10-03 00:00:00 MARIELLE MUELLER I [facility] Encounters Start Date/Time End Date/Time Encounter Type Admission Type Attendi [facility] Care Department Encounter ID Source 2019-10-03 06:28:00 2019-10-07 16:13:00 Discharged Inpatient 1 MARIELLE MUELLER [facility] [id number] [facility] 2019-09-26 16:51:00 2019-09-28 05:30:00 Discharged Inpatient LETTY [facility] [id number] [facility] Results Test Description Test Time Test Comments Results Result Comments Source Urine Culture 2019-10-07 08:34:00 Test Item Urine Culture (test code = 630-4) No Result Data Provided [facility] [id number] 06:06:00* Test Item Value Reference Range Interpretation Comments Sodium Level (test code = 2951-2) 142 136-145 [facility] RockPotassium Yqrwi5382-04-58 06:06:00* Test Item Value Reference Range Interpretation Comments Potassium Level (test code = 2823-3) 3.4 3.5-5.1 L [facility] RockChloride Fppqo1828-36-46 06:06:00* Test Item Value Reference Range Interpretation Comments Chloride Level (test code = 2075-0) 108 98-107 H [facility] RockCarbon Dioxide Yohzy9535-50-62 06:06:00* Test Item Value Reference Range Interpretation Comments Carbon Dioxide Level (test code = 2028-9) 28 22-29 [facility] RockAnion Zmh0952-99-10 06:06:00* Test Item Value Reference Range Interpretation Comments Anion Gap (test code = 67212-4) 9.4 8-16 [facility] RockBlood Urea Mqtgrfgx2868-37-37 06:06:00* Test Item Value Reference Range Interpretation Comments Blood Urea Nitrogen (test code = 3094-0) 20 7-26 [facility] RockCreatinine2020-02-22 06:06:00* Test Item Value Reference Range Interpretation Comments Creatinine (test code = 2160-0) 1.45 0.72-1.25 H [facility] RockBUN/Creatinine Qkwws6642-56-95 06:06:00* Test Item Value Reference Range Interpretation Comments BUN/Creatinine Ratio (test code = 3097-3) 14 6-25 [facility] RockEstimat Glomerular Filtration Rate 2019-10-07 06:06:00* Test Item Value Reference Range Interpretation Comments Estimat Glomerular Filtration Rate (test code = 725599813) 48 >60 L Ranges were taken from the National Kidney Disease Education Program and the [facility] Kidney Foundation literature.Reference ranges:60 or greater: Msoxww02-14 ( for 3 consecutive months): Chronic kidney disease 15 or less: Kidney failureBaylor Scott & [facility] Center – Round RockGlucose Vcpvm9239-47-84 06:06:00* Test Item Value Reference Range Interpretation Comments Glucose Level (test code = QDH9107) 131 74-118 H [facility] RockCalcium Cnhzz5628-78-46 06:06:00* Test Item Value Reference Range Interpretation Comments Calcium Level (test code = 90576-1) 8.8 8.4-10.2 [facility] RockWhite Blood Qpepe0012-42-12 05:53:00* Test Item Value Reference Range Interpretation Comments White Blood Count (test code = 6690-2) 5.75 4.8-10.8 [facility] RockRed Blood Tjlzl3649-75-11 05:53:00* Test Item Value Reference Range Interpretation Comments Red Blood Count (test code = 789-8) 4.72 4.3-5.7 [facility] RockHemoglobin2020-02-22 05:53:00* Test Item Value Reference Range Interpretation Comments Hemoglobin (test code = 73989-8) 14.1 14.0-18.0 [facility] RockHematocrit2020-02-22 05:53:00* Test Item Value Reference Range Interpretation Comments Hematocrit (test code = 4544-3) 42.2 38.2-49.6 [facility] RockMean Corpuscular Hxjain3630-29-11 05:53:00* Test Item Value Reference Range Interpretation Comments Mean Corpuscular Volume (test code = 787-2) 89.4 81-99 [facility] RockMean Corpuscular Pfeiycutxq8062-88-57 05:53:00* Test Item Value Reference Range Interpretation Comments Mean Corpuscular Hemoglobin (test code = 785-6) 29.9 28-32 [facility] RockMean Corpuscular Hemoglobin Concent 2019-10-07 05:53:00* Test Item Value Reference Range Interpretation Comments Mean Corpuscular Hemoglobin Concent (test code = 786-4) 33.4 31-35 [facility] RockRed Cell Distribution Efuyv7929-12-68 05:53:00* Test Item Value Reference Range Interpretation Comments Red Cell Distribution Width (test code = 71927-3) 13.4 11.7 -14.4 [facility] RockPlatelet Hetil0252-37-84 05:53:00* Test Item Value Reference Range Interpretation Comments Platelet Count (test code = 777-3) 198 140-360 [facility] RockNeutrophils (%) (Auto)2019-10-07 05:53:00 * Test Item Value Reference Range Interpretation Comments Neutrophils (%) (Auto) (test code = 71510-7) 76.7 38.7-80.0 [facility] RockLymphocytes (%) (Auto)2019-10-07 05:53:00 * Test Item Value Reference Range Interpretation Comments Lymphocytes (%) (Auto) (test code = 736-9) 11.8 18.0-39.1 L [facility] RockMonocytes (%) (Auto)2019-10-07 05:53:00* Test Item Value Reference Range Interpretation Comments Monocytes (%) (Auto) (test code = 5905-5) 7.5 4.4-11.3 [facility] RockEosinophils (%) (Auto)2019-10-07 05:53:00 * Test Item Value Reference Range Interpretation Comments Eosinophils (%) (Auto) (test code = 713-8) 3.3 0.0-6.0 [facility] RockBasophils (%) (Auto)2019-10-07 05:53:00* Test Item Value Reference Range Interpretation Comments Basophils (%) (Auto) (test code = 706-2) 0.5 0.0-1.0 [facility] RockIM GRANULOCYTES %2019-10-07 05:53:00* Test Item Value Reference Range Interpretation Comments IM GRANULOCYTES % (test code = IM GRANULOCYTES %) 0.2 0.0- 1.0 [facility] RockNeutrophils # (Auto)2019-10-07 05:53:00* Test Item Value Reference Range Interpretation Comments Neutrophils # (Auto) (test code = 751-8) 4.4 2.1-6.9 [facility] RockLymphocytes # (Auto)2019-10-07 05:53:00* Test Item Value Reference Range Interpretation Comments Lymphocytes # (Auto) (test code = 76725-7) 0.7 1.0-3.2 L [facility] RockMonocytes # (Auto)2019-10-07 05:53:00* Test Item Value Reference Range Interpretation Comments Monocytes # (Auto) (test code = 742-7) 0.4 0.2-0.8 [facility] RockEosinophils # (Auto)2019-10-07 05:53:00* Test Item Value Reference Range Interpretation Comments Eosinophils # (Auto) (test code = 711-2) 0.2 0.0-0.4 [facility] RockBasophils # (Auto)2019-10-07 05:53:00* Test Item Value Reference Range Interpretation Comments Basophils # (Auto) (test code = 704-7) 0.0 0.0-0.1 [facility] RockAbsolute Immature Granulocyte (auto 2019-10-07 05:53:00* Test Item Value Reference Range Interpretation Comments Absolute Immature Granulocyte (auto (jessi t code = Absolute Immature Granulocyte (auto) 0.01 0-0.1 [facility] RockBlood Lbskhgz0445-37-86 05:29:00* Test Item Value Reference Range Interpretation Comments Blood Culture (test code = 93583767) NO GROWTH AFTER 72 HOURS [facility] RockClostridium Difficile Toxin A & B 2019-10-04 14:49:00* Test Item Value Reference Range Interpretation Comments Clostridium Difficile Toxin A & B (test code = 744467148) NEGATIVE NEGATIVE Testing on stool aspirate specimens is outside sheet rocker claims since specime n type not validated on this assay.[facility] Magnesium Iujkz8306-50-43 10:12:00* Test Item Value Reference Range Interpretation Comments Magnesium Level (test code = 78116-0) 1.8 1.3-2.1 [facility] RockUrine [id number] 18:15:00* Test Item Value Reference Range Interpretation Comments Urine WBC (test code = 5821-4) 11-20 0-5 H [facility] RockUrine [id number] 18:15:00* Test Item Value Reference Range Interpretation Comments Urine RBC (test code = 67267-5) 6-10 0-5 H [facility] RockUrine Ccusrsox4598-05-77 18:15:00* Test Item Value Reference Range Interpretation Comments Urine Bacteria (test code = 05170-4) MODERATE NONE H [facility] RockUrine Epithelial Qlzhk9851-19-44 18:15:00 * Test Item Value Reference Range Interpretation Comments Urine Epithelial Cells (test code = 85120-8) FEW NONE [facility] Round RockUrine Amorphous Celybjwc4682-65-11 18:15:00* Test Item Value Reference Range Interpretation Comments Urine Amorphous Sediment (test code = 8246-1) MODERATE FEW H [facility] RockUrine Mufhv4388-06-55 18:06:00* Test Item Value Reference Range Interpretation Comments Urine Color (test code = 5778-6) YELLOW YELLOW [facility] RockUrine Hyaonzl3318-20-41 18:06:00* Test Item Value Reference Range Interpretation Comments Urine Clarity (test code = 35137-2) HAZY CLEAR [facility] RockUrine Specific Fiffnkj9998-41-80 18:06:00 * Test Item Value Reference Range Interpretation Comments Urine Specific [place] (test code = 5811-5) 1.020 1.010-1.02 5 [facility] RockUrine [id number] 18:06:00* Test Item Value Reference Range Interpretation Comments Urine pH (test code = 86970-6) 5 5-7 [facility] RockUrine Leukocyte Ghdbakez4495-14-05 18:06:00* Test Item Value Reference Range Interpretation Comments Urine Leukocyte Esterase (test code = 5799-2) 2+ NEGATIVE H [facility] RockUrine Xzrqfto2799-25-16 18:06:00* Test Item Value Reference Range Interpretation Comments Urine Nitrite (test code = 03827-8) NEGATIVE NEGATIVE [facility] RockUrine Ahzuxxv5223-48-09 18:06:00* Test Item Value Reference Range Interpretation Comments Urine Protein (test code = 5804-0) 1+ NEGATIVE H [facility] RockUrine Glucose (UA)2019-10-03 18:06:00* Test Item Value Reference Range Interpretation Comments Urine Glucose (UA) (test code = 2349-9) NEGATIVE NEGATIVE [facility] RockUrine Qxozncm0803-59-52 18:06:00* Test Item Value Reference Range Interpretation Comments Urine Ketones (test code = 36222-7) NEGATIVE NEGATIVE [facility] Aclysepdhqpf2765-75-21 18:06:00* Test Item Value Reference Range Interpretation Comments Urine Urobilinogen (test code = 46693-2) 0.2 0.2-1 [facility] RockUrine Jkanohawr7076-01-94 18:06:00* Test Item Value Reference Range Interpretation Comments Urine Bilirubin (test code = 1978-6) NEGATIVE NEGATIVE [facility] RockUrine Avxwf9658-62-55 18:06:00* Test Item Value Reference Range Interpretation Comments Urine Blood (test code = 83341-9) 2+ NEGATIVE H [facility] RockArterial Blood [id number] 08:52:00* Test Item Value Reference Range Interpretation Comments Arterial Blood pH (test code = 2744-1) 7.42 7.31-7.41 H [facility] RockArterial Blood Partial Pressure CO2 2019-10-03 08:52:00* Test Item Value Reference Range Interpretation Comments Arterial Blood Partial Pressure CO2 (test code = 2019-03) 34 41-51 L [facility] RockArterial Blood Partial Pressure O2 2019-10-03 08:52:00* Test Item Value Reference Range Interpretation Comments Arterial Blood Partial Pressure O2 (test code = 2019-03) 61 80-105 L [facility] RockArterial Blood [id number] 08:52:00* Test Item Value Reference Range Interpretation Comments Arterial Blood HCO3 (test code = 1960-4) 22 23-28 L [facility] RockArterial Blood Base Corwlz3895-65-24 08:52:00* Test Item Value Reference Range Interpretation Comments Arterial Blood Base Excess (test code = 1925-7) -3.0 -2-3 L [facility] RockArterial Blood Oxygen Saturation 2019-10-03 08:52:00* Test Item Value Reference Range Interpretation Comments Arterial Blood Oxygen Saturation (test code = 2708-6) 91.0 95-98 L [facility] RockFiO22020-02-18 08:52:00* Test Item Value Reference Range Interpretation Comments FiO2 (test code = FiO2) 28 NASAL CANNULADREW FROM LEFT RADIALBaylor Scott & [facility] [place] Influenza Virus Types A,B Hzgzvxj9187-09-07 08:14:00* Test Item Value Reference Range Interpretation Comments Influenza Virus Types A,B Antigen (test code = 09123-8) NEGATIVE NEGATIVE [facility] RockB-Type Natriuretic Fnfyods4897-30-77 06:49:00* Test Item Value Reference Range Interpretation Comments B-Type Natriuretic Peptide (test code = 64564-3) 878.3 0-100 H [facility] RockCHEST 2 QWTNJ3413-99-92 06:32:00 [place] [address] Patient Name: REX BRAUN MR #: [id number] : 1945 Age/Sex: 74/M Req #: [id number] Adm Physician: Ordered by: MARIELLE MUELLER DO Report #: [id number] Location: Room/Bed: Procedure: [id number] D X/CHEST 2 VIEWS Exam Date: Exam [...] COPY TO: MARIELLE MUELLER DO Creatine Kinase GP6137-90-63 06:02:00* Test Item Value Reference Range Interpretation Comments Creatine Kinase MB (test code = 11582-4) 1.00 0-5.0 [facility] RockTroponin [id number] 06:02:00* Test Item Value Reference Range Interpretation Comments Troponin I (test code = VYC3405) 0.005 0-0.300 [facility] RockProthrombin Hibn8713-38-70 05:55:00* Test Item Value Reference Range Interpretation Comments Prothrombin Time (test code = 5902-2) 18.1 11.9-14.5 H [facility] RockProthromb Time International Ratio 2019-10-03 05:55:00* Test Item Value Reference Range Interpretation Comments Prothromb Time International Ratio (test code = 6301-6) 1.40 Oral Anticoagulant Therapy INR Values:1. Low Intensity Therapy 1.5 - 2.02 . Moderate Intensity Therapy 2.0 - 3.03. High Intensity Therapy(1) 2.5 - 3. 54. High Intensity Therapy(2) 3.0 - 4.05. Panic Value INR > 5.0 [facility] Round RockActivated Partial Thromboplast Time 2019-10-03 05:55:00* Test Item Value Reference Range Interpretation Comments Activated Partial Thromboplast Time (test code = 29937-5) 35.3 23.8-35.5 [facility] RockLactic Acid Ehqpa8335-15-02 05:54:00* Test Item Value Reference Range Interpretation Comments Lactic Acid Level (test code = Lactic Acid Level) 1.5 0.5- 2.0 [facility] RockTotal Rjlootlhq0637-22-87 05:54:00* Test Item Value Reference Range Interpretation Comments Total Bilirubin (test code = 1975-2) 1.2 0.2-1.2 [facility] RockAspartate Amino Transf (AST/SGOT) 2019-10-03 05:54:00* Test Item Value Reference Range Interpretation Comments Aspartate Amino Transf (AST/SGOT) (test code = Aspartate Amino Transf (AST/SGOT)) 25 5-34 [facility] RockAlanine Aminotransferase (ALT/SGPT) 2019-10-03 05:54:00* Test Item Value Reference Range Interpretation Comments Alanine Aminotransferase (ALT/SGPT) (test code = 1742-6) 34 0-55 [facility] RockTotal Lrfatnw1485-26-49 05:54:00* Test Item Value Reference Range Interpretation Comments Total Protein (test code = 2885-2) 6.2 6.5-8.1 L [facility] RockAlbumin2020-02-18 05:54:00* Test Item Value Reference Range Interpretation Comments Albumin (test code = 1751-7) 3.5 3.5-5.0 [facility] RockGlobulin2020-02-18 05:54:00* Test Item Value Reference Range Interpretation Comments Globulin (test code = 55914-8) 2.7 2.3-3.5 [facility] RockAlbumin/Globulin Zsfmg4597-70-71 05:54:00 * Test Item Value Reference Range Interpretation Comments Albumin/Globulin Ratio (test code = 1759-0) 1.3 0.8-2.0 [facility] RockAlkaline Kfwwuswvtwe8997-37-27 05:54:00* Test Item Value Reference Range Interpretation Comments Alkaline Phosphatase (test code = 6768-6) 90 40-150 [facility] RockCreatine Mxolpn4317-01-54 05:54:00* Test Item Value Reference Range Interpretation Comments Creatine Kinase (test code = 2157-6) 47 30-200 [facility] Round RockPlatelet Reavnxsm8804-72-05 08:01:00* Test Item Value Reference Range Interpretation Comments Platelet Estimate (test code = 91922-6) SLIGHTLY DECREASED [facility] Round RockPlatelet Morphology Zcrxado7999-40-46 08:01:00* Test Item Value Reference Range Interpretation Comments Platelet Morphology Comment (test code = 56989-8) FEW GIANT [facility] RockRed Cell Morphology Igbnchj0131-08-55 08:01:00* Test Item Value Reference Range Interpretation Comments Red Cell Morphology Comment (test code = 6742-1) NORMAL [facility] Round RockPlatelet Vcdhnpyv4648-56-97 08:01:00* Test Item Value Reference Range Interpretation Comments Platelet Estimate (test code = 04740-2) SLIGHTLY DECREASED [facility] Round RockPlatelet Morphology Wrjhdia5620-91-65 08:01:00* Test Item Value Reference Range Interpretation Comments Platelet Morphology Comment (test code = 59055-8) FEW GIANT [facility] RockRed Cell Morphology Gywxcts4326-93-75 08:01:00* Test Item Value Reference Range Interpretation Comments Red Cell Morphology Comment (test code = 6742-1) NORMAL [facility] Centerodium Sfcqd6222-25-42 07:20:00* Test Item Value Reference Range Interpretation Comments Sodium Level (test code = 2951-2) 141 136-145 [facility] RockPotassium Mjmgo0964-19-40 07:20:00* Test Item Value Reference Range Interpretation Comments Potassium Level (test code = 2823-3) 4.3 3.5-5.1 [facility] RockChloride Dzxgs2845-45-16 07:20:00* Test Item Value Reference Range Interpretation Comments Chloride Level (test code = 2075-0) 110 98-107 H [facility] RockCarbon Dioxide Dupry7181-09-95 07:20:00* Test Item Value Reference Range Interpretation Comments Carbon Dioxide Level (test code = 2028-9) 21 22-29 L [facility] Round RockAnion Xsv2107-62-37 07:20:00* Test Item Value Reference Range Interpretation Comments Anion Gap (test code = 56218-3) 14.3 8-16 [facility] RockBlood Urea Lclxvste1502-93-18 07:20:00* Test Item Value Reference Range Interpretation Comments Blood Urea Nitrogen (test code = 3094-0) 16 7-26 [facility] RockCreatinine2020-02-12 07:20:00* Test Item Value Reference Range Interpretation Comments Creatinine (test code = 2160-0) 1.39 0.72-1.25 H [facility] RockBUN/Creatinine Fxhme1275-64-16 07:20:00* Test Item Value Reference Range Interpretation Comments BUN/Creatinine Ratio (test code = 3097-3) 12 6- [facility] RockEstimat Glomerular Filtration Rate 2019-09-27 07:20:00* Test Item Value Reference Range Interpretation Comments Estimat Glomerular Filtration Rate (test code = 493248871) 50 >60 L Ranges were taken from the National Kidney Disease Education Program and the [facility] Kidney Foundation literature.Reference ranges:60 or greater: Cbwfcv80-11 ( for 3 consecutive months): Chronic kidney disease 15 or less: Kidney failureBaylor Scott & White Medical Center – Round RockGlucose Ekoib7332-91-52 07:20:00* Test Item Value Reference Range Interpretation Comments Glucose Level (test code = DJH3947) 110 74-118 [facility] RockCalcium Wcgmw7148-04-54 07:20:00* Test Item Value Reference Range Interpretation Comments Calcium Level (test code = 61822-0) 8.7 8.4-10.2 [facility] RockTotal Udqlohpoo1490-54-62 07:20:00* Test Item Value Reference Range Interpretation Comments Total Bilirubin (test code = 1975-2) 1.9 0.2-1.2 H [facility] RockAspartate Amino Transf (AST/SGOT) 2019-09-27 07:20:00* Test Item Value Reference Range Interpretation Comments Aspartate Amino Transf (AST/SGOT) (test code = Aspartate Amino Transf (AST/SGOT)) 16 5-34 [facility] RockAlanine Aminotransferase (ALT/SGPT) 2019-09-27 07:20:00* Test Item Value Reference Range Interpretation Comments Alanine Aminotransferase (ALT/SGPT) (test code = 1742-6) 25 0-55 [facility] RockTotal Xehmmzt1213-76-51 07:20:00* Test Item Value Reference Range Interpretation Comments Total Protein (test code = 2885-2) 5.9 6.5-8.1 L [facility] RockAlbumin2020-02-12 07:20:00* Test Item Value Reference Range Interpretation Comments Albumin (test code = 1751-7) 3.3 3.5-5.0 L [facility] RockGlobulin2020-02-12 07:20:00* Test Item Value Reference Range Interpretation Comments Globulin (test code = 30143-4) 2.6 2.3-3.5 [facility] RockAlbumin/Globulin Sdvct8228-70-77 07:20:00 * Test Item Value Reference Range Interpretation Comments Albumin/Globulin Ratio (test code = 1759-0) 1.3 0.8-2.0 [facility] RockAlkaline Smkguscqnax7415-27-47 07:20:00* Test Item Value Reference Range Interpretation Comments Alkaline Phosphatase (test code = 6768-6) 88 40-150 [facility] RockTriglycerides Lwvby3660-65-66 07:20:00* Test Item Value Reference Range Interpretation Comments Triglycerides Level (test code = 2571-8) 51 0-149 [facility] RockCholesterol Ckhpx4754-56-23 07:20:00* Test Item Value Reference Range Interpretation Comments Cholesterol Level (test code = 2093-3) 90 0-199 Less than 200 mg/dL Low Ifrz048 - 239 mg/dL Borderline Blhv419 m g/dl and greater High Risk [facility] RockLDL Lmfyvhhgrpx6724-71-88 07:20:00* Test Item Value Reference Range Interpretation Comments LDL Cholesterol (test code = 2089-1) 43 60-130 [facility] Hxrsyvjhehf1114-73-14 07:20:00* Test Item Value Reference Range Interpretation Comments HDL Cholesterol (test code = 2085-9) 37 40-60 L [facility] RockCholesterol/HDL Gqhaw0419-84-90 07:20:00 * Test Item Value Reference Range Interpretation Comments Cholesterol/HDL Ratio (test code = 9830-1) 2.4 3.9-4.7 L [facility] RockTriglycerides Eqkiv6167-00-92 07:20:00* Test Item Value Reference Range Interpretation Comments Triglycerides Level (test code = 2571-8) 51 0-149 [facility] RockCholesterol Xdtwm8300-21-24 07:20:00* Test Item Value Reference Range Interpretation Comments Cholesterol Level (test code = 2093-3) 90 0-199 Less than 200 mg/dL Low Wjoj523 - 239 mg/dL Borderline Rmlj010 m g/dl and greater High Risk [facility] RockLDL Kfjgfigsgqi1477-98-13 07:20:00* Test Item Value Reference Range Interpretation Comments LDL Cholesterol (test code = 2089-1) 43 60-130 [facility] Kdbtbbrdsey0836-63-72 07:20:00* Test Item Value Reference Range Interpretation Comments HDL Cholesterol (test code = 2085-9) 37 40-60 L [facility] RockCholesterol/HDL Ruyvp9542-07-20 07:20:00 * Test Item Value Reference Range Interpretation Comments Cholesterol/HDL Ratio (test code = 9830-1) 2.4 3.9-4.7 L [facility] RockWhite Blood Nhipr3740-83-49 06:45:00* Test Item Value Reference Range Interpretation Comments White Blood Count (test code = 6690-2) 6.21 4.8-10.8 [facility] RockRed Blood Bmakq0369-10-58 06:45:00* Test Item Value Reference Range Interpretation Comments Red Blood Count (test code = 789-8) 4.22 4.3-5.7 L [facility] RockHemoglobin2020-02-12 06:45:00* Test Item Value Reference Range Interpretation Comments Hemoglobin (test code = 28011-2) 12.6 14.0-18.0 L [facility] RockHematocrit2020-02-12 06:45:00* Test Item Value Reference Range Interpretation Comments Hematocrit (test code = 4544-3) 39.1 38.2-49.6 [facility] RockMean Corpuscular Rjtplg8889-97-93 06:45:00* Test Item Value Reference Range Interpretation Comments Mean Corpuscular Volume (test code = 787-2) 92.7 81-99 [facility] RockMean Corpuscular Airwvzjvwf4401-16-23 06:45:00* Test Item Value Reference Range Interpretation Comments Mean Corpuscular Hemoglobin (test code = 785-6) 29.9 28-32 [facility] RockMean Corpuscular Hemoglobin Concent 2019-09-27 06:45:00* Test Item Value Reference Range Interpretation Comments Mean Corpuscular Hemoglobin Concent (test code = 786-4) 32.2 31-35 [facility] RockRed Cell Distribution Advjt4444-82-73 06:45:00* Test Item Value Reference Range Interpretation Comments Red Cell Distribution Width (test code = 86349-4) 14.3 11.7 -14.4 [facility] RockPlatelet Ytfvq4321-97-31 06:45:00* Test Item Value Reference Range Interpretation Comments Platelet Count (test code = 777-3) 119 140-360 L [facility] RockNeutrophils (%) (Auto)2019-09-27 06:45:00 * Test Item Value Reference Range Interpretation Comments Neutrophils (%) (Auto) (test code = 24921-0) 71.1 38.7-80.0 [facility] RockLymphocytes (%) (Auto)2019-09-27 06:45:00 * Test Item Value Reference Range Interpretation Comments Lymphocytes (%) (Auto) (test code = 736-9) 16.9 18.0-39.1 L [facility] RockMonocytes (%) (Auto)2019-09-27 06:45:00* Test Item Value Reference Range Interpretation Comments Monocytes (%) (Auto) (test code = 5905-5) 10.6 4.4-11.3 [facility] RockEosinophils (%) (Auto)2019-09-27 06:45:00 * Test Item Value Reference Range Interpretation Comments Eosinophils (%) (Auto) (test code = 713-8) 0.8 0.0-6.0 [facility] RockBasophils (%) (Auto)2019-09-27 06:45:00* Test Item Value Reference Range Interpretation Comments Basophils (%) (Auto) (test code = 706-2) 0.3 0.0-1.0 [facility] RockIM GRANULOCYTES %2019-09-27 06:45:00* Test Item Value Reference Range Interpretation Comments IM GRANULOCYTES % (test code = IM GRANULOCYTES %) 0.3 0.0- 1.0 [facility] RockNeutrophils # (Auto)2019-09-27 06:45:00* Test Item Value Reference Range Interpretation Comments Neutrophils # (Auto) (test code = 751-8) 4.4 2.1-6.9 [facility] RockLymphocytes # (Auto)2019-09-27 06:45:00* Test Item Value Reference Range Interpretation Comments Lymphocytes # (Auto) (test code = 28649-6) 1.1 1.0-3.2 [facility] RockMonocytes # (Auto)2019-09-27 06:45:00* Test Item Value Reference Range Interpretation Comments Monocytes # (Auto) (test code = 742-7) 0.7 0.2-0.8 [facility] RockEosinophils # (Auto)2019-09-27 06:45:00* Test Item Value Reference Range Interpretation Comments Eosinophils # (Auto) (test code = 711-2) 0.1 0.0-0.4 [facility] RockBasophils # (Auto)2019-09-27 06:45:00* Test Item Value Reference Range Interpretation Comments Basophils # (Auto) (test code = 704-7) 0.0 0.0-0.1 [facility] RockAbsolute Immature Granulocyte (auto 2019-09-27 06:45:00* Test Item Value Reference Range Interpretation Comments Absolute Immature Granulocyte (auto (jessi t code = Absolute Immature Granulocyte (auto) 0.02 0-0.1 [facility] RockCreatine Kinase [id number] 06:11:00* Test Item Value Reference Range Interpretation Comments Creatine Kinase MB (test code = 70355-3) 1.20 0-5.0 [facility] RockTroponin [id number] 06:11:00* Test Item Value Reference Range Interpretation Comments Troponin I (test code = HWD0428) 0.005 0-0.300 [facility] RockCreatine Hawcql3631-73-44 05:56:00* Test Item Value Reference Range Interpretation Comments Creatine Kinase (test code = 2157-6) 21 30-200 L [facility] Wrjcrxmbw0886-25-88 18:57:00* Test Item Value Reference Range Interpretation Comments Free Thyroxine (test code = 3024-7) 0.78 0.8-1.8 L [facility] Mjylzfous5128-67-43 18:57:00* Test Item Value Reference Range Interpretation Comments Free Thyroxine (test code = 3024-7) 0.78 0.8-1.8 L [facility] RockCHEST SINGLE (PORTABLE)2019-09-26 16:35:00 [place] [address] Patient Name: REX BRAUN MR #: [id number] : 1945 Age/Sex: 74/M Req #: [id number] Adm Physician: Ordered by: LETTY HERNANDEZ MD Report #: [id number] Location: ER Room/Bed: Procedure: [id number] DX/C HEST SINGLE (PORTABLE) Exam Date: 09/26/19 [...] Thyroid Stimulating Hormone (TSH) (test code = 81245-2) 0.762 0.350-4.940 [facility] RockThyroid Stimulating Hormone (TSH) 2019-09-26 16:34:00* Test Item Value Reference Range Interpretation Comments Thyroid Stimulating Hormone (TSH) (test code = 98860-0) 0.762 0.350-4.940 [facility] RockB-Type Natriuretic Wfmkhtl4582-92-14 16:30:00* Test Item Value Reference Range Interpretation Comments B-Type Natriuretic Peptide (test code = 88190-8) 498.7 0-100 H [facility] RockUrine [id number] 16:22:00* Test Item Value Reference Range Interpretation Comments Urine WBC (test code = 5821-4) NONE 0-5 [facility] RockUrine JHW6334-36-00 16:22:00* Test Item Value Reference Range Interpretation Comments Urine RBC (test code = 37073-5) 0-5 0-5 [facility] RockUrine Mdzemqsn9830-89-88 16:22:00* Test Item Value Reference Range Interpretation Comments Urine Bacteria (test code = 06202-6) MODERATE NONE H [facility] RockUrine Epithelial Bmdml7031-22-90 16:22:00 * Test Item Value Reference Range Interpretation Comments Urine Epithelial Cells (test code = 02581-4) FEW NONE [facility] RockUrine Haywi7632-48-44 16:22:00* Test Item Value Reference Range Interpretation Comments Urine Mucus (test code = 8247-9) MODERATE RARE H [facility] RockUrine Ogive5961-78-36 16:22:00* Test Item Value Reference Range Interpretation Comments Urine Mucus (test code = 8247-9) MODERATE RARE H [facility] RockProthrombin [id number] 16:21:00* Test Item Value Reference Range Interpretation Comments Prothrombin Time (test code = 5902-2) 16.0 11.9-14.5 H [facility] RockProthromb Time International Ratio 2019-09-26 16:21:00* Test Item Value Reference Range Interpretation Comments Prothromb Time International Ratio (test code = 6301-6) 1.20 Oral Anticoagulant Therapy INR Values:1. Low Intensity Therapy 1.5 - 2.02 . Moderate Intensity Therapy 2.0 - 3.03. High Intensity Therapy(1) 2.5 - 3. 54. High Intensity Therapy(2) 3.0 - 4.05. Panic Value INR > 5.0 [facility] RockActivated Partial Thromboplast Time 2019-09-26 16:21:00* Test Item Value Reference Range Interpretation Comments Activated Partial Thromboplast Time (test code = 86584-2) 32.6 23.8-35.5 [facility] RockMagnesium Payfe2265-88-99 16:18:00* Test Item Value Reference Range Interpretation Comments Magnesium Level (test code = 70481-4) 1.8 1.3-2.1 [facility] RockUrine Puspa1440-38-00 16:08:00* Test Item Value Reference Range Interpretation Comments Urine Color (test code = 5778-6) ORANGE YELLOW [facility] RockUrine Bbcfvbd5923-40-51 16:08:00* Test Item Value Reference Range Interpretation Comments Urine Clarity (test code = 03975-3) CLEAR CLEAR [facility] RockUrine Specific Xqnnzvq8203-48-72 16:08:00 * Test Item Value Reference Range Interpretation Comments Urine Specific [place] (test code = 5811-5) >=1.030 1.010-1.02 5 [facility] RockUrine [id number] 16:08:00* Test Item Value Reference Range Interpretation Comments Urine pH (test code = 13565-7) 5.5 5-7 [facility] RockUrine Leukocyte Rqaqnzsk1343-74-38 16:08:00* Test Item Value Reference Range Interpretation Comments Urine Leukocyte Esterase (test code = 5799-2) NEGATIVE NEGATIVE [facility] RockUrine Vwrzxkn7446-17-82 16:08:00* Test Item Value Reference Range Interpretation Comments Urine Nitrite (test code = 50132-7) NEGATIVE NEGATIVE [facility] RockUrine Sbnpvdd1664-20-27 16:08:00* Test Item Value Reference Range Interpretation Comments Urine Protein (test code = 5804-0) NEGATIVE NEGATIVE [facility] RockUrine Glucose (UA)2019-09-26 16:08:00* Test Item Value Reference Range Interpretation Comments Urine Glucose (UA) (test code = 2349-9) NEGATIVE NEGATIVE [facility] RockUrine Tyihiyw9136-72-09 16:08:00* Test Item Value Reference Range Interpretation Comments Urine Ketones (test code = 77602-8) NEGATIVE NEGATIVE [facility] RockUrine Jxywghcymbbf0288-86-25 16:08:00* Test Item Value Reference Range Interpretation Comments Urine Urobilinogen (test code = 17509-1) 2.0 0.2-1 [facility] RockUrine Nxjnfuuik9899-37-48 16:08:00* Test Item Value Reference Range Interpretation Comments Urine Bilirubin (test code = 1978-6) SMALL NEGATIVE [facility] Iasef5077-40-27 16:08:00* Test Item Value Reference Range Interpretation Comments Urine Blood (test code = 03172-9) NEGATIVE NEGATIVE [facility]
[2020-01-12 13:33] LABS: BASOPHILS % 0.6 % (0.0-1.0); EOSINOPHILS # (AUTO) 0.1 (0.0-0.4); EOSINOPHILS % 1.8 % (0.0-6.0); HEMATOCRIT 41.6 % (38.2-49.6); HEMOGLOBIN 13.7 g/dL (14.0-18.0); LYMPHOCYTES # (AUTO) 0.7 (1.0-3.2); LYMPHOCYTES % 13.4 % (18.0-39.1); MEAN CORPUSCULAR HEMOGLOBIN 29.5 pg (28-32); MEAN CORPUSCULAR HGB CONC 32.9 g/dL (31-35); MEAN CORPUSCULAR VOLUME 89.5 fL (81-99); MONOCYTES # (AUTO) 0.4 (0.2-0.8); MONOCYTES % 6.6 % (4.4-11.3); NEUTROPHILS # (AUTO) 4.2 (2.1-6.9); NEUTROPHILS % 77.4 % (38.7-80.0); PLATELET COUNT 143 x10e3/uL (140-360); RED BLOOD COUNT 4.65 x10e6/uL (4.3-5.7); RED CELL DISTRIBUTION WIDTH 14.1 % (11.7-14.4)
--- NOTE | 2020-01-12 13:34 | Emergency Department Note ---
History of Present Illnes History of Present Illness Chief Complaint: Chest Pain History of Present Illness This is a 74 year old male HERE FOR DIZZINESS AND WEAKNESS FOR THE T WEEK, RECENTLY MEDS CHANGED TO HELP CONTROL A-FIB. CLIENT WAS SENT BY [facility]. Historian: Patient Arrival Mode: Car Typesetting Machine Operator/Tender Required: No Onset (how long ago): week(s) (1) Location: HEAD Quality: DIZZY Radiation: non-radiation Severity: moderate Timing of current episode: intermittent Chronicity: new Context: recent illness Relieving factors: none Exacerbating factors: none Associated symptoms: weakness Treatments prior to arrival: none Past Medical/Family History Physician Review I have reviewed the patient's past medical and family history. Any updates have been documented here. Past Medical History Recent Fever: No Clinical Suspicion of Infectio: No New/Unexplained Change in Ment: No Past Medical History: None, Hypertension, A-Fib Other Medical History: hyperthyroid Past Surgical History: None Other Surgery: hemmorhoid surgery pilonidal cyst removed above tailbone Social History Smoking Cessation: Never Smoker Counseling Performed: No Alcohol Use: None Any Illegal Drug Use: No TB Exposure/Symptoms: No Physically hurt or threatened: No Other Last Tetanus: UNKNOWN Any Pre-Existing Lines (PICC,: No Is patient up to date on immun: Yes Last Flu: utd Last Pneumovax: utd Review of Systems Review of Systems Constitutional: no symptoms EENTM: no symptoms Cardiovascular: no symptoms Respiratory: no symptoms Gastrointestinal: no symptoms Genitourinary: no symptoms Musculoskeletal: no symptoms Neurological: other (DIZZY) Psychological: no symptoms Endocrine: no symptoms Hematological/Lymphatic: no symptoms Review of other systems All other systems reviewed and negative. Physical Exam Related Data Allergies: Coded Allergies: Sulfa (Sulfonamide Antibiotics) (Verified Allergy, Mild, RASH, 10/08/19) amoxicillin (Verified Allergy, Mild, RASH, 02/23/11) prednisone (Verified Allergy, Mild, RASH, 02/23/11) Triage Vital Signs Vital Signs Date Time Temp Pulse Resp B/P (MAP) Pulse Ox O2 Delivery O2 Flow Rate FiO2 01/12/20 12:13 97.5 38 16 131/74 97 Vital signs reviewed: Yes Physical Exam CONSTITUTIONAL Constitutional: well-developed, well-nourished HENT HENT: normocephalic, atraumatic, oropharynx clear/moist, nose normal HENT L/R: left ext ear normal, right ext ear normal EYES Eyes: PERRL, conjunctivae normal NECK Neck: ROM normal PULMONARY Pulmonary: effort normal, breath sounds normal CARDIOVASCULAR Cardiovascular: heart sounds normal, bradycardia GASTROINTESTINAL Abdominal: soft, nontender, bowel sounds normal GENITOURINARY Genitourinary: exam deferred SKIN Skin: warm, dry MUSCULOSKELETAL Musculoskeletal: ROM normal NEUROLOGICAL Neurological: alert, oriented x 3, no gross motor or sensory deficits PSYCHOLOGICAL Psychological: mood/affect normal, judgement normal Results Laboratory Laboratory Laboratory Tests Test 01/12/20 13:14 Lab results reviewed: Yes Imaging Imaging results reviewed: Yes Diagnostics Tests Diagnostic test(s) reviewed: Yes Procedures 12 Lead ECG Interpretation Typesetting Machine Operator/Tender: Interpreted by ED physician Date: January 12, 2020 Time: 12:08 Prior CNC PROGRAMMER tracings: reviewed Rhythm: sinus bradycardia Rate: bradycardia (37) QRS axis: normal ST segments normal: Yes T wave depression: III Clinical Impression: abnormal ECG Critical Care Time Subsequent provider I assumed direction of critical care for this patient from another provider of my specialty. Assessment & Plan Assessment & Plan Final Impression: (1) BRADYCARDIA, UNSPECIFIED (2) DIZZINESS AND GIDDINESS Assessment & Plan ADMIT Last Vital Signs Date Time Temp Pulse Resp B/P (MAP) Pulse Ox O2 Delivery O2 Flow Rate FiO2 01/12/20 13:25 37 18 111/51 97 01/12/20 12:13 97.5 Home Meds Active Scripts Metoprolol Succinate (TOPROL XL) 50 Mg Tab.er.24h, 300 MG PO DAILY for 30 Days Prov:LOLY BLACK MD 10/07/19 Tamsulosin Hcl* (FLOMAX*) 0.4 Mg Cap, 0.4 MG PO Q12HR for 30 Days, CAP Prov:LOLY BLACK MD 10/07/19 Finasteride (FINASTERIDE) 5 Mg Tablet, 5 MG PO DAILY for 30 Days Prov:LOLY BLACK MD 10/07/19 Amiodarone Hcl (AMIODARONE HCL) 200 Mg Tablet, 200 MG PO BID@1000,2200 for 30 Days Prov:LOLY BLACK MD 10/07/19 Reported Medications Apixaban (Eliquis) 5 Mg Tablet, 5 MG PO BID 10/03/19 Lisinopril (LISINOPRIL) 10 Mg Tablet, 10 MG PO DAILY 10/03/19 Methimazole (METHIMAZOLE) 5 Mg Tablet, 5 MG PO DAILY 09/27/19 LETTY HERNANDEZ MD January 12, 2020 13:34
--- NOTE | 2020-01-12 13:39 | Diagnostic Imaging Report ---
EXAMINATION: CHEST SINGLE (PORTABLE) INDICATION: Bradycardia COMPARISON: Chest radiograph 10/03/2019 FINDINGS: LINES/TUBES:None LUNGS:The lungs are well-inflated. No focal consolidation or pulmonary edema. PLEURA:No pleural effusion or pneumothorax. MEDIASTINUM:The cardiomediastinal silhouette appears normal in size and shape. BONES/SOFT TISSUES:No acute osseous injury. ABDOMEN:No free air under the diaphragm. IMPRESSION: No focal pneumonia or pulmonary edema. Signed by: Mat Barclay MD on 01/12/2020 1:36 PM
[2020-01-12 13:45] LABS: INR 1.68; PARTIAL THROMBOPLASTIN TIME 36.9 seconds (23.8-35.5)
[2020-01-12 13:53] LABS: ALANINE AMINOTRANSFERASE 32 IU/L (0-55); ALBUMIN 3.6 g/dL (3.5-5.0); ALBUMIN/GLOBULIN RATIO 1.2 (0.8-2.0); ALKALINE PHOSPHATASE 100 IU/L (40-150); ANION GAP 11.4 mmol/L (8-16); BLOOD UREA NITROGEN 25 mg/dL (7-26); BUN/CREATININE RATIO 12 (6-25); CALCIUM 9.2 mg/dL (8.4-10.2); CARBON DIOXIDE 26 mmol/L (22-29); CHLORIDE 109 mmol/L (98-107); CREATINE KINASE 21 IU/L (30-200); CREATININE, SERUM 2.07 mg/dL (0.72-1.25); EST GLOMERULAR FILTRATION RATE 32 ML/MIN (60-); GLUCOSE 106 mg/dL (74-118); MAGNESIUM 1.9 MG/DL (1.3-2.1); POTASSIUM 4.4 mmol/L (3.5-5.1); SODIUM 142 mmol/L (136-145)
--- NOTE | 2020-01-12 15:15 | NUR ---
RCD PT FROM ER BY BED PT IS ALERT AND ORIENTED VITALS CHECKED PT RESTING ON BED FAMILY AT BED SIDE IV PATENT BY SALINE FLUSH ADMISSION ASSESSMENT AND HISTORY DONE PT DENIED ANY KIND OF PAIN.INSTRUCTED THE PT AND FAMILY REGARDING HOSPITAL POLICY AND ROUTINE AND VISITING POLICY BED LOW AND LOCKED CALL LIGHT IN REACH
--- NOTE | 2020-01-12 15:30 | NUR ---
BP 194/100 MM/HG PAGED AND NOTIFIED DR BLACK GOT NEW ORDERS
[2020-01-12] MEDS ORDERED: HYDRALAZINE HCL 20 MG/ML VIAL IV PRN (15:45)
--- NOTE | 2020-01-12 16:29 | NUR ---
AC TO HIS SON THEY NEED 2 VISITORS NOTIFIED THE CHIEF VENDOR QUALITY SHE SAID ITS OK TO PUT HER NAME IN THE LIST AND TELL OT TO THE PT
[2020-01-12 16:31] VITALS: BP 194/100
[2020-01-12 16:34] VITALS: BP 194/100
[2020-01-12 17:07] VITALS: BP_SYST 127; BP_SYST 194; BP_DIAS 100; BP_DIAS 65
[2020-01-12 17:08] VITALS: BP 127/65
--- NOTE | 2020-01-12 17:08 | NUR ---
RE CHECKED BP 127/65 MM/HG
[2020-01-12] MEDS: SODIUM CHLORIDE 0.9% 1000ML 1,000 ML IV SCH (18:00)
--- NOTE | 2020-01-12 18:44 | NUR ---
PT RESTING ON BED BED SIDE REPORT GIVEN TO ONCOMING NURSE
[2020-01-12 20:54] VITALS: BP 123/61
[2020-01-12 21:00] VITALS: BP 123/61
[2020-01-13] VITALS (8 sets, daily range): BP systolic 125–176; BP diastolic 59–93
[2020-01-13 05:38] LABS: BASOPHILS % 0.7 % (0.0-1.0); EOSINOPHILS # (AUTO) 0.1 (0.0-0.4); EOSINOPHILS % 2.7 % (0.0-6.0); HEMATOCRIT 41.7 % (38.2-49.6); HEMOGLOBIN 13.7 g/dL (14.0-18.0); LYMPHOCYTES # (AUTO) 0.9 (1.0-3.2); LYMPHOCYTES % 19.3 % (18.0-39.1); MEAN CORPUSCULAR HEMOGLOBIN 29.3 pg (28-32); MEAN CORPUSCULAR HGB CONC 32.9 g/dL (31-35); MEAN CORPUSCULAR VOLUME 89.3 fL (81-99); MONOCYTES # (AUTO) 0.3 (0.2-0.8); MONOCYTES % 7.4 % (4.4-11.3); NEUTROPHILS # (AUTO) 3.1 (2.1-6.9); NEUTROPHILS % 69.7 % (38.7-80.0); PLATELET COUNT 133 x10e3/uL (140-360); RED BLOOD COUNT 4.67 x10e6/uL (4.3-5.7)
[2020-01-13 05:58] LABS: CREATINE KINASE 19 IU/L (30-200)
[2020-01-13 06:19] LABS: ALBUMIN/GLOBULIN RATIO 1.1 (0.8-2.0); CALCIUM 8.8 mg/dL (8.4-10.2); CHOL/HDL RATIO 3.4 (3.9-4.7); CREATININE, SERUM 1.74 mg/dL (0.72-1.25)
[2020-01-13] MEDS ORDERED: ZOLPIDEM TARTRATE 5 MG TAB PO PRN (06:45)
[2020-01-13] MEDS ORDERED: DOCUSATE SODIUM 100 MG CAP PO PRN (06:45)
[2020-01-13] MEDS ORDERED: ONDANSETRON HCL INJ 2MG/ML 2ML 2 MG/ML VIAL IV PRN (06:45)
[2020-01-13] MEDS ORDERED: ACETAMINOPHEN 325 MG TAB PO PRN (06:45)
--- NOTE | 2020-01-13 06:47 | NUR ---
H&P cc: dizziness HPI: 74yoM, PCP , Cardio , developed dizziness, went to office, found to have bradyarrhythmia while on metoprolol. PMH: hyperthyroidism, hemorrhoids s/p surgical mgmt, CKD3 due to HTN, nicotine dependence in remission, pilonidal cyst s/p removal, PAF, URI, B/L pleural effusion PSHx: pilonidal cyst remova, hemorrhoid ALlergies; see emr FH/SH; quit cigs; uses Ecig; ; meds; see MAR ROS: no f/c/s/N/V/D/CARDENAS/dizziness/skin rash/focal limb weakness/confusion v/s revd PE tired appearing anicteric ns1s2; slow HR coarse BS soft nt nd no e/t skin dry n. affect labs/meds revd A/P: Bradyarrhythmia- hold metoprolol; use hydralazine; PAF- HR slow; use hydralazine and AC CKD3 due to HTN- hydralazine Hyperthyroidism- check TSH and T4; resume methimizole 5 TID Nicotine dependence in remission Prop: pepcid on AC Dispo: give dose roys Henning MD, PhD.
--- NOTE | 2020-01-13 07:00 | NUR ---
RCD PT AT BED PT IS ALERT AND ORIENTED PT RESTING ON BED IV PATENT BY SALINE FLUSH BED LOW AND LOCKED CALL LIGHT IN REACH
[2020-01-13] MEDS: SODIUM CHLORIDE 0.9% 1000ML 1,000 ML IV SCH ×2 (07:20→20:40)
[2020-01-13] MEDS: FINASTERIDE 5 MG TAB PO SCH (09:00)
[2020-01-13] MEDS ORDERED: ENOXAPARIN INJ 80 MG/0.8 ML SYR SC SCH (09:00)
[2020-01-13] MEDS: METHIMAZOLE 5 MG TAB PO SCH (09:00)
[2020-01-13] MEDS: TAMSULOSIN HCL 0.4 MG CAP PO SCH ×2 (09:00→20:58)
[2020-01-13] MEDS: LISINOPRIL 10 MG TAB PO SCH (09:00)
[2020-01-13] MEDS: HYDRALAZINE HCL 25 MG TAB PO SCH ×2 (09:15→15:00)
--- NOTE | 2020-01-13 10:18 | NUR ---
HR 33/MT PAGED AND NOTIFIED DR VAZQUEZ HE SAID PRINT THE TELY PRINT HE IS COMING TO SEE THE PT
--- NOTE | 2020-01-13 12:00 | NUR ---
dr carmona came to see the pt got new orders
[2020-01-13] MEDS: HYDRALAZINE HCL 10 MG TAB PO SCH ×2 (14:00→20:58)
[2020-01-13 14:33] LABS: CREATINE KINASE MB 0.6 ng/mL (0-5.0)
--- NOTE | 2020-01-13 15:15 | Consultation ---
DATE OF CONSULTATION: Cardiology Consultation REASON FOR CONSULTATION: Bradycardia. HISTORY OF PRESENT ILLNESS: This is a 74-year-old man with a history of paroxysmal atrial fibrillation, which had been difficult to control in the past. However, he presented to my outpatient clinic for lightheadedness, dizziness, and fatigue. He was noted to have his heart rate in the 30s and it was sinus. He was admitted for observation. He denies any chest pain, shortness of breath, or palpitations. PAST MEDICAL HISTORY: As stated above. PAST SURGICAL HISTORY: None recent. PAST FAMILY HISTORY: Noncontributory to current illness. ALLERGIES: MULTIPLE; SULFA, AMOXICILLIN, PREDNISONE. MEDICATIONS: See medication reconciliation form. SOCIAL HISTORY: No illicit drug, alcohol, or tobacco use. PHYSICAL EXAMINATION: VITAL SIGNS: Temperature is 97.8, heart rate is 37, respirations are 18, blood pressure is 146/72, oxygen saturation 98% on room air. GENERAL: Well appearing, well built, no apparent distress. Alert and oriented x3. HEAD: Normocephalic and atraumatic. EYES: Extraocular muscles intact. Conjunctivae clear. NECK: No JVD. No bruits. CARDIOVASCULAR: Regular rhythm, bradycardic. No murmurs. LUNGS: Clear to auscultation. ABDOMEN: Soft, nontender, nondistended. EXTREMITIES: No clubbing, cyanosis, or edema. VASCULAR: 2+ pulses. SKIN: Warm, dry and intact. NEUROLOGIC: No focal deficits noted. LABORATORY DATA: Reviewed. Creatinine is 1.7. BNP is 662. Troponins are negative. Telemetry monitoring overnight along with his 12-lead electrocardiogram showed severe sinus bradycardia. IMPRESSION: 1. Paroxysmal atrial fibrillation. 2. Sinus bradycardia, symptomatic. 3. Chronic kidney disease. 4. Hypertension. RECOMMENDATIONS: The patient likely has severe bradycardia due to medication effect. He likely was taking double dose of his amiodarone, as he had two pill bottles in his bag of medications. He was on high dose metoprolol as well. These since have been stopped and he has been placed on fluid hydration. We will allow for medication washout. Resume antihypertensives and anticoagulation. We will continue to follow along with you. DO MARYANN Tang/MODL /[id number]
[2020-01-13] MEDS: APIXABAN 5 MG TABLET PO SCH (17:00)
--- NOTE | 2020-01-13 19:00 | NUR ---
Patient visited in room during nursing rounds. Patient alert and oriented x3. Ambulatory in room prn. No distress or discomfort noted. Sinus bradycardia (HR = 39) on telemetry per report and Dr. Davis is aware. Call galloway within reach. Will monitor pt closely.
[2020-01-14] VITALS (9 sets, daily range): BP systolic 97–178; BP diastolic 57–87
[2020-01-14] MEDS: SODIUM CHLORIDE 0.9% 1000ML 1,000 ML IV SCH ×2 (04:12→23:35)
[2020-01-14] MEDS: HYDRALAZINE HCL 10 MG TAB PO SCH ×3 (05:24→21:54)
--- NOTE | 2020-01-14 07:00 | NUR ---
RCD PT AT BED PT IS ALERT AND ORIENTED PT RESTING ON BED IV PATENT BY SALINE FLUSH BED LOW AND LOCKED CALL LIGHT IN REACH
--- NOTE | 2020-01-14 08:39 | NUR ---
MESSAGE LEFT FOR DR. BLACK REQUESTING PLAN OF CARE PT IS 2 DAY OBS. AWAITING REPLY
[2020-01-14] MEDS: METHIMAZOLE 5 MG TAB PO SCH (09:00)
[2020-01-14] MEDS: APIXABAN 5 MG TABLET PO SCH ×2 (09:00→17:00)
[2020-01-14] MEDS: TAMSULOSIN HCL 0.4 MG CAP PO SCH ×2 (09:00→20:30)
[2020-01-14] MEDS: LISINOPRIL 10 MG TAB PO SCH (09:00)
[2020-01-14] MEDS: FINASTERIDE 5 MG TAB PO SCH (09:00)
[2020-01-14] MEDS ORDERED: GLUCAGON FOR INJ 1 MG VIAL IV ONE (13:00)
[2020-01-14] MEDS ORDERED: GLUCAGON IV ONE (13:30)
[2020-01-14] MEDS ORDERED: SODIUM CHLORIDE 0.9% IV ONE (13:30)
--- NOTE | 2020-01-14 13:30 | NUR ---
IV GLUCAGON 5 MG GIVEN AFTER CHECKING THE VITALS BP 123/64 ,HR 48 O2 100%
--- NOTE | 2020-01-14 13:50 | NUR ---
FINISHED THE GLUCAGON BP 132/64.53 /MT O2 100% PT RESTING ON BED FAMILY AT BED SIDE
--- NOTE | 2020-01-14 14:13 | Progress Note ---
DATE: Cardiology Progress Note SUBJECTIVE: The patient reports mild lightheadedness with ambulation. No chest pain or palpitations. OBJECTIVE: VITAL SIGNS: Temperature is 97.7, heart rate is 41, respirations are 16, blood pressure is 133/70, oxygen saturation is 96% on room air. GENERAL: Well appearing in no apparent distress. CARDIOVASCULAR: Sinus bradycardia. No murmurs. LUNGS: Clear to auscultation. ABDOMEN: Soft, nontender, nondistended. EXTREMITIES: No edema. CARDIOVASCULAR MEDICATIONS: Reviewed include Eliquis and lisinopril. LABORATORY DATA: Reviewed. TSH is normal at 1.3. Troponins are negative. Creatinine 1.7. TELEMETRY: Monitoring revealed severe sinus bradycardia with PACs. ASSESSMENT: 1. Paroxysmal atrial fibrillation. 2. Sinus bradycardia, symptomatic. 3. Chronic kidney disease. 4. Hypertension. 5. Premature atrial contractions. PLAN: The patient likely has severe bradycardia due to medication effect. The patient was inadvertently taking double dose of amiodarone and was on metoprolol succinate 100 mg daily. The patient remains with severe symptomatic bradycardia. Last dose of metoprolol was Wednesday morning. He has been on intravenous fluids and his kidney function has improved. We will continue to monitor the patient in the hospital on telemetry to allow for medication washout. I will go ahead and give a 5 mg bolus of glucagon today. A drip of glucagon is not feasible at this point in time, giving a lack of medication allotment. We will continue to follow closely on telemetry. DO MARYANN Tang/MODL /[id number]
[2020-01-14] MEDS: ISOSORBIDE DINITRATE 20 MG TAB PO SCH (17:00)
--- NOTE | 2020-01-14 18:38 | NUR ---
PT RESTING ON BED BED SIDE REPORT GIVEN TO ONCOMING NURSE
--- NOTE | 2020-01-14 19:00 | NUR ---
Patient visited in room during nursing rounds. Patient alert and oriented x3. Ambulatory in room prn. On IVF (NS at 75ml/hr). Pt denies any pain or discomfort. HR closely monitored via telemetry. Call galloway within reach.
[2020-01-15 00:05] VITALS: BP 154/79
[2020-01-15 04:35] VITALS: BP 154/83
[2020-01-15] MEDS: HYDRALAZINE HCL 10 MG TAB PO SCH ×2 (05:39→14:00)
[2020-01-15 08:00] VITALS: BP 138/69
[2020-01-15] MEDS: APIXABAN 5 MG TABLET PO SCH ×2 (08:46→17:46)
[2020-01-15] MEDS: TAMSULOSIN HCL 0.4 MG CAP PO SCH (08:46)
[2020-01-15] MEDS: FINASTERIDE 5 MG TAB PO SCH (08:47)
[2020-01-15] MEDS: METHIMAZOLE 5 MG TAB PO SCH (08:47)
[2020-01-15] MEDS: ISOSORBIDE DINITRATE 20 MG TAB PO SCH (08:47)
[2020-01-15 08:53] VITALS: BP 138/69
[2020-01-15 11:50] VITALS: BP 103/56
[2020-01-15 16:00] VITALS: BP 167/76
--- NOTE | 2020-01-15 17:00 | Progress Note ---
DATE: 01/15/2020 Cardiology Progress Note. SUBJECTIVE: The patient denies chest pain, shortness of breath, or lightheadedness. OBJECTIVE: VITAL SIGNS: Temperature 97.7 degrees, pulse 88, respiratory rate 18, blood pressure 103/56, oxygen saturation 94%. GENERAL: Awake, alert, in no acute distress. LUNGS: Clear to auscultation bilaterally. No wheezes or crackles. CARDIOVASCULAR: Bradycardic, irregularly irregular. No murmur. Normal S1, S2. ABDOMEN: Soft and nontender. EXTREMITIES: No edema. CARDIAC MEDICATIONS: 1. Isosorbide dinitrate 10 mg p.o. b.i.d. 2. Methimazole 5 mg p.o. daily. 3. Apixaban 5 mg p.o. b.i.d. LABORATORY DATA: None today. TELEMETRY: I personally reviewed and interpreted, revealing a sinus bradycardia with episode of paroxysmal atrial fibrillation. IMPRESSION: 1. Paroxysmal atrial fibrillation. 2. Sinus bradycardia, symptomatic. 3. Chronic kidney disease. 4. Hypertension. 5. Premature atrial contractions. RECOMMENDATIONS: The patient has iatrogenic bradycardia secondary to medications. He was inadvertently taking double his prescribed dose of amiodarone and metoprolol succinate. The patient's heart rate has improved. Remained off AV mayela blocking agents. Continue Eliquis. The patient is slightly hypotensive, discontinue Isordil and hydralazine. If creatinine has normalized, I would recommend resuming lisinopril at that point. Keep patient off AV mayela blocking agents for now. We would recommend follow up with Dr. Davis in the office to resume these medications, if necessary. Follow patient closely on telemetry. Thank you for this consult. We will continue to follow. Shawna Gonsales MD [facility] /[id number]
[2020-01-15 17:57] LABS: ANION GAP 12.8 mmol/L (8-16); CALCIUM 8.7 mg/dL (8.4-10.2); CREATININE, SERUM 1.65 mg/dL (0.72-1.25); POTASSIUM 3.8 mmol/L (3.5-5.1)
[2020-01-15] MEDS ORDERED: HYDRALAZINE HCL10 MG PO (18:42)
== END 2020-01-15 19:21 | disposition home or self-care (01) | DRG 310 ==
LOC: ER 11:35 → ERHOLD 12:23 → MED/SURG2 15:15 → OBSVTOIN 01-14 16:53
PROVIDERS: ADMIT Internal Medicine; ATTEND Internal Medicine
DX: I48.0 Paroxysmal atrial fibrillation (principal); I49.8 Other specified cardiac arrhythmias; I12.9 Hypertensive chronic kidney disease with stage 1 through stage 4 chronic kidney disease, or unspecified chronic kidney disease; I49.1 Atrial premature depolarization; N18.3 Chronic kidney disease, stage 3 (moderate); Z87.891 Personal history of nicotine dependence; E05.90 Thyrotoxicosis, unspecified without thyrotoxic crisis or storm
CPT/HCPCS: 36415; 71045; 80048; 80053; 80061; 82550; 82553; 83735; 83880; 84443; 84484; 85025; 85610; 85730; 87635; 93005; 93306; 99284; G0378; J0360; J1610; J1650; J7030

== ENCOUNTER → 2020-03-06 | Day surgery (SDC) | payer MEDICARE, OTHER ==
[2020-03-01 10:26] LABS: BASOPHILS % 0.4 % (0.0-1.0); EOSINOPHILS # (AUTO) 0.1 (0.0-0.4); EOSINOPHILS % 2.3 % (0.0-6.0); HEMATOCRIT 43.7 % (38.2-49.6); HEMOGLOBIN 14.4 g/dL (14.0-18.0); LYMPHOCYTES # (AUTO) 0.9 (1.0-3.2); LYMPHOCYTES % 16.1 % (18.0-39.1); MEAN CORPUSCULAR HEMOGLOBIN 29.4 pg (28-32); MEAN CORPUSCULAR VOLUME 89.4 fL (81-99); MONOCYTES # (AUTO) 0.3 (0.2-0.8); MONOCYTES % 6.4 % (4.4-11.3); NEUTROPHILS % 74.8 % (38.7-80.0); PLATELET COUNT 138 x10e3/uL (140-360); RED BLOOD COUNT 4.89 x10e6/uL (4.3-5.7); RED CELL DISTRIBUTION WIDTH 13.9 % (11.7-14.4)
[2020-03-01 10:42] LABS: INR 1.3
[2020-03-01 10:47] LABS: ALBUMIN 3.5 g/dL (3.5-5.0); ALBUMIN/GLOBULIN RATIO 1.1 (0.8-2.0); ANION GAP 9.2 mmol/L (8-16); CALCIUM 9.1 mg/dL (8.4-10.2); CREATININE, SERUM 1.83 mg/dL (0.72-1.25); POTASSIUM 4.2 mmol/L (3.5-5.1)
--- NOTE | 2020-03-01 15:00 | NUR ---
1500p PRE ADMISSION INTERVIEW for Dual Pacer Implant Dr Caceres.Has been social distancing and no signs current for COVID virus.Reache out to Dr Caceres regarding when to stop Eliquis and wether pt receive light breakfast or keep full NPO. dawna/milvia Addendum: 03/01/20 at 1525 by Aubree Keane RN Addendum did leave phone message Dr Caceres procedural coordinator pt needs to know if Elequies is held or is able to have breakfast. Pt scheduled 1pm arrival for 3pm denys etime March 06Wed. Also left that pt has abnormal renal labs,await return call gavin
--- NOTE | 2020-03-01 17:00 | NUR ---
1700p received phone call from Dr Caceres off pt may gave light breakfast nothing after 7am. He is to continue Md Philippe is aware of abnormal renal labs per Josue RN/ds/rn
--- NOTE | 2020-03-01 17:05 | NUR ---
8925 Spoke with patient and daughter Lexus regarding ok to eat light breakfast no eating or drinking after 7am of procedural date. May continue to take Eliquis. ds/rn
[~2020-03-06] VITALS: Ht 172.7 cm; Wt 79.4 kg
[~2020-03-06] MED LIST changes: +AMIODARONE HCL IV ONE; +BACITRACIN 50,000 UNIT VIAL ONE; +CEFAZOLIN SOD 2 GM/D5W 50ML 50 ML IV ONE; +FENTANYL CITRATE/PF 100MCG/2 ML INJ ONE; +GENTAMICIN SULFATE 40 MG/ML 2 ML VIAL IV ONE; +HYDRALAZINE HCL10 MG PO; +LIDOCAINE 1% W/EPINEPHRINE 20 ML VIAL INJ ONE; +METOPROLOL TARTRATE INJ 1 MG/ML VIAL ONE; +MIDAZOLAM HCL 2 MG/2 ML VIAL ONE; +SODIUM CHLORIDE 0.9% 1000ML 2,000 ML ONE; +SODIUM CHLORIDE 0.9% 500ML 500 ML ONE; +VANCOMYCIN HCL 1 GM VIAL IV ONE
[2020-03-06 15:00] VITALS: BP 157/86
--- NOTE | 2020-03-06 15:50 | NUR ---
Dr. Caceres notified that patient's blood pressure 200/81 and patient last dose of eliquis 03/06/[address] Caceres verbalized understanding and had new orders at this time.
--- NOTE | 2020-03-06 16:15 | NUR ---
5605p pt sleeping soundly no acute distress, update family status of start time dr Caceres is in CCL suite at this time. ds/rn
[2020-03-06 18:30] VITALS: BP 150/67
--- NOTE | 2020-03-06 18:30 | NUR ---
1830p Received pt to room #10,bedside report received from TOPHER Salas. Alert oriented and appropriate, PERRLA, respirations even and unlabored to room air. Pulses x4 extremities equal and strong. Pedal pulses PT/DP X4 and marked. Cap fill brisk < 3 sec. left sc dressing to pacer site.No gross issues pain,pallor pressure or dysrhythmia. Skin warm and dry integrity appears D/I. IV 20g to arm, presents healthy w/o s/s of infiltration or complaint. Abdomen soft and supple. pt offered toileting, denies need to urinate or defecate. No personal affects with patient. Family at bedside. Pt and family verbalizes understanding of POC. Pr Currently w/o complaint of pain or need. dawna/rn
[2020-03-06 18:44] VITALS: BP 145/53
[2020-03-06 19:00] VITALS: BP 148/83
[2020-03-06 19:30] VITALS: BP 125/66
[2020-03-06 20:00] VITALS: BP 143/77
--- NOTE | 2020-03-06 20:00 | NUR ---
2000p Pt meets DC criteria. Left sc site NO gross issues pain,pallor,pressure or dysrhythmia. sling on in place and aware of dc instructions.Assessed for s/s of complication and presence of hematoma. Skin warm, dry, no discolor, and pulses present. IV removed from left arm. Distal tip appears intact. VS WNL. Pt denies pain, sob, or need at this time. Family at BS. Review of discharge paperwork and follow up instructions. verbalized understanding. Pt to wheelchair and transported to front of hospital. Transferred to private car dc papers and script with family. ds/rn
--- NOTE | 2020-03-06 20:34 | Operative Report ---
DATE OF PROCEDURE: 03/06/2020 SURGEON: Clinton Amaya MD PREPROCEDURE DIAGNOSES: 1. Symptomatic bradycardia, dizziness. 2. Sick sinus syndrome. 3. History of cardiomyopathy with improved ejection fraction. POSTPROCEDURE DIAGNOSES: 1. Symptomatic bradycardia, dizziness. 2. Sick sinus syndrome. 3. History of cardiomyopathy with improved ejection fraction. ESTIMATED BLOOD LOSS: 10 mL. COMPLICATIONS: none. PROCEDURES PERFORMED: 1. Dual-chamber pacemaker placement. 2. Moderate sedation. Moderate conscious sedation was provided under my direct supervision by sedation trained nurse. Sedation approximate time, 30 minutes, versed and fentanyl. There were no complications. See sedation form for details. DESCRIPTION OF PROCEDURE: After informed consent was obtained, the patient was brought to the electrophysiology laboratory in a fasting and nonsedated state. Area over his chest was prepped and draped in the usual sterile fashion. Moderate sedation was given and prophylactic antibiotic. A 3 cm skin incision was made in the left subclavicular area. Electrocautery sharp and blunt dissection were used to bridge the muscular fascia and a pocket was created for event implantation of the device. Vascular access was obtained x2 in the left axillary vein using modified Seldinger technique under fluoroscopy guidance. Two sheaths were placed ventricular lead to the RV apex. R-wave is 22, pacing 0.4 at 0.4, impedance 1000. Atrial lead to the right atrial appendage, P-wave 5, pacing 0.5 at 0.4, impedance 700. Sheaths were removed from the body. Leads were secured to fascia using Ethibond. The pocket was irrigated with antibiotic solution using a pulse animal ride attendant. Hemostasis was meticulous. Leads were connected to the device and entire pacemaker system placed in the pocket. Incision was closed using absorbable sutures and Dermabond. The patient tolerated the procedure well. Procedure was then complete. SUMMARY OF HARDWARE IMPLANTED: The new pacemaker is [employer], serial #[id number]. Atrial lead is [employer], [id number]. Ventricular lead is [employer], [id number]. IMPRESSION: Successful dual-chamber pacemaker implant via left axillary vein. PLAN: 1. Routine postop monitoring on telemetry bed. 2. Chest x-ray. 3. Follow up in two weeks. Clinton Amaya MD [facility]/LEATHAL /[id number]
== END | disposition home or self-care (01) ==
LOC: CATH LAB 12:47
PROVIDERS: ATTEND Internal Medicine
DX: I49.5 Sick sinus syndrome (principal); I42.9 Cardiomyopathy, unspecified; Z68.33 Body mass index [BMI] 33.0-33.9, adult; I48.0 Paroxysmal atrial fibrillation; R53.82 Chronic fatigue, unspecified; Z88.0 Allergy status to penicillin; Z88.2 Allergy status to sulfonamides; Z01.812 Encounter for preprocedural laboratory examination; Z11.59 Encounter for screening for other viral diseases; Z79.02 Long term (current) use of antithrombotics/antiplatelets; Z82.49 Family history of ischemic heart disease and other diseases of the circulatory system
CPT/HCPCS: 33208; 36415; 80053; 85025; 85610; C1785; C1898; J0690; J1580; J2250; J3010; J3370; J7030; J7040; U0002; 99152; 99153

== ENCOUNTER 2020-09-17 06:28 | Inpatient (IN) | payer MEDICARE, OTHER ==
[~2020-09-17] VITALS: Ht 172.7 cm; Wt 89.8 kg
[~2020-09-17 06:28] MED LIST changes: -AMIODARONE HCL IV ONE; -BACITRACIN 50,000 UNIT VIAL ONE; -CEFAZOLIN SOD 2 GM/D5W 50ML 50 ML IV ONE; -FENTANYL CITRATE/PF 100MCG/2 ML INJ ONE; -GENTAMICIN SULFATE 40 MG/ML 2 ML VIAL IV ONE; -LIDOCAINE 1% W/EPINEPHRINE 20 ML VIAL INJ ONE; -METOPROLOL TARTRATE INJ 1 MG/ML VIAL ONE; -MIDAZOLAM HCL 2 MG/2 ML VIAL ONE; -SODIUM CHLORIDE 0.9% 1000ML 2,000 ML ONE; -SODIUM CHLORIDE 0.9% 500ML 500 ML ONE; -VANCOMYCIN HCL 1 GM VIAL IV ONE
[2020-09-17 07:39] LABS: BASOPHILS % 0.2 % (0.0-1.0); EOSINOPHILS % 0.3 % (0.0-6.0); HEMATOCRIT 45.8 % (38.2-49.6); HEMOGLOBIN 14.8 g/dL (14.0-18.0); LYMPHOCYTES # (AUTO) 0.9 (1.0-3.2); LYMPHOCYTES % 9.3 % (18.0-39.1); MEAN CORPUSCULAR HEMOGLOBIN 28.2 pg (28-32); MEAN CORPUSCULAR HGB CONC 32.3 g/dL (31-35); MEAN CORPUSCULAR VOLUME 87.2 fL (81-99); MONOCYTES # (AUTO) 0.7 (0.2-0.8); MONOCYTES % 7.4 % (4.4-11.3); NEUTROPHILS # (AUTO) 7.7 (2.1-6.9); NEUTROPHILS % 81.6 % (38.7-80.0); PLATELET COUNT 179 x10e3/uL (140-360); RED BLOOD COUNT 5.25 x10e6/uL (4.3-5.7); RED CELL DISTRIBUTION WIDTH 13.2 % (11.7-14.4)
[2020-09-17 07:56] LABS: ALBUMIN 3.5 g/dL (3.5-5.0); ALBUMIN/GLOBULIN RATIO 1.1 (0.8-2.0); ANION GAP 18.3 mmol/L (8-16); CALCIUM 8.8 mg/dL (8.4-10.2); CREATININE, SERUM 2.07 mg/dL (0.72-1.25); POTASSIUM 4.3 mmol/L (3.5-5.1)
[2020-09-17 08:03] LABS: CREATINE KINASE MB 6.1 ng/mL (0-5.0)
[2020-09-17] MEDS ORDERED: ASPIRIN 81 MG CHEW TAB PO ONE (10:00)
[2020-09-17] MEDS: SODIUM CHLORIDE 0.9% 1000ML 1,000 ML IV SCH ×2 (10:51→17:42)
[2020-09-17 11:49] LABS: CLARITY,URINE SL CLOUDY (CLEAR); COLOR,URINE YELLOW (YELLOW); KETONES,URINE NEGATIVE (NEGATIVE); LEUKOCYTE ESTERASE ,URINE NEGATIVE (NEGATIVE); NITRITE,URINE NEGATIVE (NEGATIVE); PROTEIN,URINE DIPSTICK TRACE (NEGATIVE); URINE UROBILINOGEN 0.2 mg/dL (0.2 - 1)
[2020-09-17 11:57] LABS: BACTERIA,URINE RARE /HPF; EPITHELIAL CELLS,URINE RARE /LPF; RBC,URINE 21-50 /HPF (0-5); WBC,URINE (MAN) 0-5 /HPF (0-5)
[2020-09-17] MEDS ORDERED: ACETAMINOPHEN 325 MG TAB PO PRN (12:30)
[2020-09-17] MEDS ORDERED: ONDANSETRON HCL INJ 2MG/ML 2ML 2 MG/ML VIAL IV PRN (12:30)
[2020-09-17] MEDS ORDERED: DOCUSATE SODIUM 100 MG CAP PO PRN (12:30)
[2020-09-17] MEDS ORDERED: HYOSCYAMINE 0.125 MG TAB PO PRN (15:30)
[2020-09-17] MEDS: APIXABAN 5 MG TABLET PO SCH (17:42)
[2020-09-17 18:30] LABS: CREATINE KINASE MB 7.6 ng/mL (0-5.0)
[2020-09-17 20:00] VITALS: BP 181/113
[2020-09-17 20:33] VITALS: BP 181/113
[2020-09-17] MEDS ORDERED: ZOLPIDEM TARTRATE 5 MG TAB PO PRN (21:00)
[2020-09-17] MEDS ORDERED: METOPROLOL TARTRATE 25 MG TAB PO SCH (21:00)
[2020-09-17] MEDS: TAMSULOSIN HCL 0.4 MG CAP PO SCH (22:18)
[2020-09-17] MEDS: HYDRALAZINE HCL 10 MG TAB PO SCH (22:19)
[2020-09-17 22:28] VITALS: BP 181/113
[2020-09-17 22:43] VITALS: BP 181/113
[2020-09-18] VITALS (8 sets, daily range): BP systolic 140–171; BP diastolic 82–99
[2020-09-18] MEDS: SODIUM CHLORIDE 0.9% 1000ML 1,000 ML IV SCH ×2 (01:02→03:54)
[2020-09-18 02:01] LABS: CREATINE KINASE MB 7.8 ng/mL (0-5.0)
[2020-09-18 05:09] LABS: BASOPHILS % 0.1 % (0.0-1.0); EOSINOPHILS % 0.1 % (0.0-6.0); HEMATOCRIT 44.8 % (38.2-49.6); HEMOGLOBIN 14.4 g/dL (14.0-18.0); LYMPHOCYTES # (AUTO) 0.9 (1.0-3.2); LYMPHOCYTES % 5.3 % (18.0-39.1); MEAN CORPUSCULAR HGB CONC 32.1 g/dL (31-35); MEAN CORPUSCULAR VOLUME 90.1 fL (81-99); MONOCYTES # (AUTO) 1.1 (0.2-0.8); MONOCYTES % 6.4 % (4.4-11.3); NEUTROPHILS # (AUTO) 14.6 (2.1-6.9); NEUTROPHILS % 87.2 % (38.7-80.0); PLATELET COUNT 162 x10e3/uL (140-360); RED BLOOD COUNT 4.97 x10e6/uL (4.3-5.7); RED CELL DISTRIBUTION WIDTH 13.2 % (11.7-14.4)
[2020-09-18] MEDS: HYDRALAZINE HCL 10 MG TAB PO SCH ×3 (05:20→21:44)
[2020-09-18 05:29] LABS: ALBUMIN 3.1 g/dL (3.5-5.0); ALBUMIN/GLOBULIN RATIO 1.1 (0.8-2.0); ANION GAP 19.5 mmol/L (8-16); BILIRUBIN,DIRECT 0.7 mg/dL (0.0-0.5); CALCIUM 8.1 mg/dL (8.4-10.2); CREATININE, SERUM 3.95 mg/dL (0.72-1.25); POTASSIUM 4.5 mmol/L (3.5-5.1)
[2020-09-18] MEDS ORDERED: SODIUM BICARBONATE 8.4% 100 ML in SODIUM CHLORIDE 0.45% 1,000 ML IV ONE (07:45)
[2020-09-18] MEDS: APIXABAN 5 MG TABLET PO SCH (08:39)
[2020-09-18] MEDS: METOPROLOL TARTRATE 25 MG TAB PO SCH ×2 (08:39→19:09)
[2020-09-18] MEDS: TAMSULOSIN HCL 0.4 MG CAP PO SCH ×2 (08:39→21:00)
[2020-09-18] MEDS: FINASTERIDE 5 MG TAB PO SCH (08:39)
[2020-09-18] MEDS: METHIMAZOLE 5 MG TAB PO SCH (08:47)
[2020-09-18 17:33] LABS: INR 1.37; PARTIAL THROMBOPLASTIN TIME 28.5 seconds (23.8-35.5); PROTHROMBIN TIME 17.8 seconds (11.9-14.5)
[2020-09-18] MEDS ORDERED: LIDOCAINE HCL 1% LOCAL INJ 20 ML VIAL ONE (19:02)
[2020-09-18] MEDS ORDERED: IOPAMIDOL 300 MG/ML 15ML VIAL IT ONE (19:03)
[2020-09-18] MEDS: SODIUM CHLORIDE 0.45% 1,000 ML IV SCH ×2 (21:43→23:03)
[2020-09-19] VITALS (8 sets, daily range): BP systolic 120–149; BP diastolic 69–96
[2020-09-19] MEDS: HYDRALAZINE HCL 10 MG TAB PO SCH ×3 (05:31→20:50)
[2020-09-19 06:38] LABS: BASOPHILS % 0.1 % (0.0-1.0); EOSINOPHILS # (AUTO) 0.1 (0.0-0.4); EOSINOPHILS % 0.8 % (0.0-6.0); HEMATOCRIT 39.9 % (38.2-49.6); HEMOGLOBIN 12.9 g/dL (14.0-18.0); LYMPHOCYTES # (AUTO) 0.9 (1.0-3.2); LYMPHOCYTES % 11.1 % (18.0-39.1); MEAN CORPUSCULAR HEMOGLOBIN 28.3 pg (28-32); MEAN CORPUSCULAR HGB CONC 32.3 g/dL (31-35); MEAN CORPUSCULAR VOLUME 87.5 fL (81-99); MONOCYTES # (AUTO) 0.6 (0.2-0.8); MONOCYTES % 7.7 % (4.4-11.3); NEUTROPHILS # (AUTO) 6.6 (2.1-6.9); NEUTROPHILS % 79.7 % (38.7-80.0); PLATELET COUNT 128 x10e3/uL (140-360); RED BLOOD COUNT 4.56 x10e6/uL (4.3-5.7); RED CELL DISTRIBUTION WIDTH 13.5 % (11.7-14.4)
[2020-09-19 07:03] LABS: ALBUMIN 2.5 g/dL (3.5-5.0); ANION GAP 15.5 mmol/L (8-16); CALCIUM 7.9 mg/dL (8.4-10.2); CREATININE, SERUM 3.39 mg/dL (0.72-1.25); MAGNESIUM 2.2 MG/DL (1.3-2.1); PHOSPHORUS 3.5 MG/DL (2.3-4.7); POTASSIUM 4.5 mmol/L (3.5-5.1)
[2020-09-19] MEDS: TAMSULOSIN HCL 0.4 MG CAP PO SCH ×2 (09:21→20:50)
[2020-09-19] MEDS: FINASTERIDE 5 MG TAB PO SCH (09:21)
[2020-09-19] MEDS: METOPROLOL TARTRATE 25 MG TAB PO SCH ×2 (09:22→17:03)
[2020-09-19] MEDS: METHIMAZOLE 5 MG TAB PO SCH (10:12)
[2020-09-19] MEDS: SODIUM CHLORIDE 0.45% 1,000 ML IV SCH ×2 (15:16→20:50)
[2020-09-20] VITALS: BP 154/68
[2020-09-20 04:00] VITALS: BP 164/82
[2020-09-20] MEDS: HYDRALAZINE HCL 10 MG TAB PO SCH (05:34)
[2020-09-20 06:40] LABS: ALBUMIN 2.5 g/dL (3.5-5.0); ANION GAP 13.4 mmol/L (8-16); CALCIUM 7.7 mg/dL (8.4-10.2); CREATININE, SERUM 1.65 mg/dL (0.72-1.25); POTASSIUM 4.4 mmol/L (3.5-5.1)
[2020-09-20 07:15] VITALS: BP 164/82
[2020-09-20] MEDS: TAMSULOSIN HCL 0.4 MG CAP PO SCH (08:45)
[2020-09-20] MEDS: METHIMAZOLE 5 MG TAB PO SCH (08:45)
[2020-09-20] MEDS: FINASTERIDE 5 MG TAB PO SCH (08:45)
[2020-09-20] MEDS: METOPROLOL TARTRATE 25 MG TAB PO SCH (08:46)
[2020-09-20 08:48] VITALS: BP 144/78
[2020-09-20 12:50] VITALS: BP 105/75
[2020-09-20] MEDS ORDERED: LOPRESSOR25 MG PO (13:49)
[2020-09-20] MEDS ORDERED: LEVSIN-SL0.125 MG PO (13:49)
[2020-09-20 15:30] VITALS: BP 96/70
== END 2020-09-20 15:10 | disposition home or self-care (01) | DRG 682 ==
LOC: ER 07:35 → ERHOLD 09:59 → IMCU 20:03
PROVIDERS: ADMIT Internal Medicine; ATTEND Internal Medicine
PROC: 0T9B30Z Drainage of Bladder with Drainage Device, Percutaneous Approach (ICD-10-PCS; principal; 2020-09-18)
PROC: BT40ZZZ Ultrasonography of Bladder (ICD-10-PCS; 2020-09-18)
DX: N17.9 Acute kidney failure, unspecified (principal); U07.1 COVID-19; M62.82 Rhabdomyolysis; E87.2 Acidosis; N13.8 Other obstructive and reflux uropathy; I12.9 Hypertensive chronic kidney disease with stage 1 through stage 4 chronic kidney disease, or unspecified chronic kidney disease; N13.30 Unspecified hydronephrosis; N18.30 Chronic kidney disease, stage 3 unspecified; I48.0 Paroxysmal atrial fibrillation; E05.90 Thyrotoxicosis, unspecified without thyrotoxic crisis or storm; E03.9 Hypothyroidism, unspecified; Z88.1 Allergy status to other antibiotic agents; Z88.2 Allergy status to sulfonamides; Z88.8 Allergy status to other drugs, medicaments and biological substances; E86.0 Dehydration; Z87.891 Personal history of nicotine dependence; N32.0 Bladder-neck obstruction; Z87.440 Personal history of urinary (tract) infections; N39.41 Urge incontinence; N40.1 Benign prostatic hyperplasia with lower urinary tract symptoms; R35.1 Nocturia; R39.14 Feeling of incomplete bladder emptying
CPT/HCPCS: 36415; 51102; 71045; 74470; 76770; 76942; 80053; 81001; 82248; 82550; 82553; 82728; 83735; 84100; 84484; 85025; 85610; 85730; 86140; 86850; 86900; 99284; C1769; J2001; J2405; J7030; Q9967; U0002

== ENCOUNTER 2020-09-25 14:44 | Emergency (ER) | payer OTHER ==
[~2020-09-25] VITALS: Ht 172.7 cm; Wt 89.8 kg
[~2020-09-25 14:44] MED LIST changes: +LEVSIN-SL0.125 MG PO; +LOPRESSOR25 MG PO
== END 2020-09-25 15:25 | disposition home or self-care (01) ==
LOC: ER 15:20
DX: Z43.5 Encounter for attention to cystostomy (principal); I10 Essential (primary) hypertension; I48.91 Unspecified atrial fibrillation; F03.90 Unspecified dementia, unspecified severity, without behavioral disturbance, psychotic disturbance, mood disturbance, and anxiety; Z88.0 Allergy status to penicillin; Z88.2 Allergy status to sulfonamides; Z88.8 Allergy status to other drugs, medicaments and biological substances; Z79.02 Long term (current) use of antithrombotics/antiplatelets
CPT/HCPCS: 99283

== ENCOUNTER → 2020-10-11 | Emergency (ER) | payer OTHER ==
[~2020-10-11] VITALS: Ht 172.7 cm; Wt 89.8 kg
== END | disposition home or self-care (01) ==
LOC: ER 09:00
DX: Z46.6 Encounter for fitting and adjustment of urinary device (principal); I10 Essential (primary) hypertension; F03.90 Unspecified dementia, unspecified severity, without behavioral disturbance, psychotic disturbance, mood disturbance, and anxiety; I48.91 Unspecified atrial fibrillation; E05.90 Thyrotoxicosis, unspecified without thyrotoxic crisis or storm; Z95.810 Presence of automatic (implantable) cardiac defibrillator
CPT/HCPCS: 99282

== ENCOUNTER → 2020-10-23 | Outpatient (CLI) | payer MEDICARE ==
[~2020-10-23] MED LIST changes: +FENTANYL CITRATE/PF 100MCG/2 ML INJ ONE; +IOPAMIDOL 300MG/ML 100 ML INFUS..BTL IV ONE; +LIDOCAINE HCL 1% LOCAL INJ 20 ML VIAL ONE; +MIDAZOLAM HCL 2 MG/2 ML VIAL ONE; +SODIUM CHLORIDE 0.9% 250ML 250 ML ONE
[2020-10-23 11:09] LABS: HEMOGLOBIN 13.1 g/dL (14.0-18.0)
[2020-10-23 11:41] LABS: PROTHROMBIN TIME 13.8 seconds (11.9-14.5)
[2020-10-23 11:42] LABS: PARTIAL THROMBOPLASTIN TIME 30.2 seconds (23.8-35.5)
== END ==
LOC: DX 10:38
PROVIDERS: ATTEND Urology
DX: Z01.812 Encounter for preprocedural laboratory examination (principal); Z20.822 Contact with and (suspected) exposure to COVID-19; R33.9 Retention of urine, unspecified
CPT/HCPCS: 36415; 51102; 85014; 85049; 85610; 85730; 87071; 87075; 87205; J2001; J2250; J3010; J7050; Q9967; U0002; 87186; 99152; 99153

== ENCOUNTER 2020-11-27 07:24 | Inpatient (IN) | payer MEDICARE, OTHER ==
[2020-11-25 08:48] LABS: BASOPHILS # (AUTO) 0.1 (0.0-0.1); BASOPHILS % 0.9 % (0.0-1.0); EOSINOPHILS # (AUTO) 0.2 (0.0-0.4); EOSINOPHILS % 3.5 % (0.0-6.0); HEMATOCRIT 39.9 % (38.2-49.6); HEMOGLOBIN 13.2 g/dL (14.0-18.0); LYMPHOCYTES # (AUTO) 0.9 (1.0-3.2); LYMPHOCYTES % 15.7 % (18.0-39.1); MEAN CORPUSCULAR HEMOGLOBIN 28.9 pg (28-32); MEAN CORPUSCULAR HGB CONC 33.1 g/dL (31-35); MEAN CORPUSCULAR VOLUME 87.3 fL (81-99); MONOCYTES # (AUTO) 0.5 (0.2-0.8); MONOCYTES % 8.2 % (4.4-11.3); NEUTROPHILS # (AUTO) 4.1 (2.1-6.9); NEUTROPHILS % 71.4 % (38.7-80.0); PLATELET COUNT 141 x10e3/uL (140-360); RED BLOOD COUNT 4.57 x10e6/uL (4.3-5.7); RED CELL DISTRIBUTION WIDTH 14.9 % (11.7-14.4)
[2020-11-25 09:16] LABS: ANION GAP 14.1 mmol/L (8-16); CALCIUM 8.9 mg/dL (8.4-10.2); CREATININE, SERUM 2.78 mg/dL (0.72-1.25); POTASSIUM 4.1 mmol/L (3.5-5.1)
[~2020-11-27 07:24] MED LIST changes: -FENTANYL CITRATE/PF 100MCG/2 ML INJ ONE; +FUROSEMIDE40 MG PO; -IOPAMIDOL 300MG/ML 100 ML INFUS..BTL IV ONE; -LIDOCAINE HCL 1% LOCAL INJ 20 ML VIAL ONE; -MIDAZOLAM HCL 2 MG/2 ML VIAL ONE; -SODIUM CHLORIDE 0.9% 250ML 250 ML ONE
[2020-11-27] MEDS ORDERED: LEVOFLOXACIN 500MG/D5W 100ML 100 ML IV ONE (08:02)
[2020-11-27] MEDS ORDERED: GENTAMICIN 80MG/NS 100 ML 200 ML IV ONE (08:03)
[2020-11-27] MEDS ORDERED: SODIUM CHLORIDE 0.9% 1000ML 1,000 ML ONE (08:04)
[2020-11-27] MEDS ORDERED: sulfameth PO (08:08)
[2020-11-27] MEDS ORDERED: B&O 60MG R/S 60 MG SUPP PR ONE (09:48)
[2020-11-27] MEDS ORDERED: IOPAMIDOL 300MG/ML 50ML INFUS..BTL IV ONE (09:48)
[2020-11-27] MEDS ORDERED: B&O 60MG R/S 60 MG SUPP PR PRN (12:00)
[2020-11-27] MEDS ORDERED: ONDANSETRON HCL INJ 2MG/ML 2ML 2 MG/ML VIAL IV PRN (12:00)
[2020-11-27] MEDS ORDERED: DIPHENHYDRAMINE HCL 25 MG CAP PO PRN (12:00)
[2020-11-27] MEDS ORDERED: FENTANYL CITRATE/PF 100MCG/2 ML INJ ONE ×2 (12:03→13:18)
[2020-11-27 12:26] LABS: BASOPHILS % 0.3 % (0.0-1.0); EOSINOPHILS # (AUTO) 0.1 (0.0-0.4); EOSINOPHILS % 0.9 % (0.0-6.0); HEMATOCRIT 38.9 % (38.2-49.6); LYMPHOCYTES # (AUTO) 0.7 (1.0-3.2); LYMPHOCYTES % 9.3 % (18.0-39.1); MEAN CORPUSCULAR HEMOGLOBIN 29.3 pg (28-32); MEAN CORPUSCULAR HGB CONC 33.4 g/dL (31-35); MEAN CORPUSCULAR VOLUME 87.8 fL (81-99); MONOCYTES # (AUTO) 0.2 (0.2-0.8); MONOCYTES % 2.3 % (4.4-11.3); NEUTROPHILS # (AUTO) 6.1 (2.1-6.9); NEUTROPHILS % 86.8 % (38.7-80.0); PLATELET COUNT 107 x10e3/uL (140-360); RED BLOOD COUNT 4.43 x10e6/uL (4.3-5.7)
[2020-11-27] MEDS ORDERED: MORPHINE SULFATE INJ 4 MG/ML INJ 1ML ONE (12:32)
[2020-11-27] MEDS ORDERED: LIDOCAINE HCL 2% JELLY 5 ML TUBE ONE (12:33)
[2020-11-27] MEDS ORDERED: SEVOFLURANE INHAL SOLN 250 ML PEN BTL ONE (12:33)
[2020-11-27] MEDS ORDERED: ONDANSETRON HCL INJ 2MG/ML 2ML 2 MG/ML VIAL ONE (12:33)
[2020-11-27] MEDS ORDERED: DEXAMETHASONE SOD PHOS INJ 4 MG/ML VIAL ONE (12:33)
[2020-11-27] MEDS ORDERED: PROPOFOL IV EMULSION 10 MG/ML 20 ML VIAL ONE (12:33)
[2020-11-27] MEDS ORDERED: LIDOCAINE HCL 2% LOCAL INJ 5 ML SDV VIAL INJ ONE (12:33)
[2020-11-27 12:46] LABS: CALCIUM 8.4 mg/dL (8.4-10.2); CREATININE, SERUM 2.4 mg/dL (0.72-1.25)
[2020-11-27 14:45] VITALS: BP 146/93
[2020-11-27 16:06] VITALS: BP 116/77
[2020-11-27] MEDS ORDERED: DOCUSATE SODIUM 100 MG CAP PO SCH (17:00)
[2020-11-27] MEDS ORDERED: ACETAMINOPHEN 325 MG TAB PO PRN (18:00)
[2020-11-27] MEDS ORDERED: ZOLPIDEM TARTRATE 5 MG TAB PO PRN (18:00)
[2020-11-27] MEDS ORDERED: DOCUSATE SODIUM 100 MG CAP PO PRN (18:00)
[2020-11-27 20:00] VITALS: BP 111/68
[2020-11-27 20:15] VITALS: BP 111/68
[2020-11-27] MEDS: TAMSULOSIN HCL 0.4 MG CAP PO SCH (20:39)
[2020-11-27] MEDS: D5.45%NS/KCL 20MEQ 1,000 ML IV SCH (22:30)
[2020-11-28] VITALS (8 sets, daily range): BP systolic 105–141; BP diastolic 65–84
[2020-11-28 05:25] LABS: BASOPHILS % 0.1 % (0.0-1.0); HEMOGLOBIN 11.9 g/dL (14.0-18.0); LYMPHOCYTES # (AUTO) 0.6 (1.0-3.2); LYMPHOCYTES % 5.4 % (18.0-39.1); MEAN CORPUSCULAR HEMOGLOBIN 29.6 pg (28-32); MEAN CORPUSCULAR VOLUME 87.1 fL (81-99); MONOCYTES # (AUTO) 0.6 (0.2-0.8); MONOCYTES % 5.1 % (4.4-11.3); NEUTROPHILS # (AUTO) 9.7 (2.1-6.9); NEUTROPHILS % 88.8 % (38.7-80.0); PLATELET COUNT 133 x10e3/uL (140-360); RED BLOOD COUNT 4.02 x10e6/uL (4.3-5.7); RED CELL DISTRIBUTION WIDTH 14.8 % (11.7-14.4)
[2020-11-28 05:49] LABS: ANION GAP 16.6 mmol/L (8-16); CALCIUM 8.4 mg/dL (8.4-10.2); CREATININE, SERUM 1.99 mg/dL (0.72-1.25); POTASSIUM 4.6 mmol/L (3.5-5.1)
[2020-11-28] MEDS: D5.45%NS/KCL 20MEQ 1,000 ML IV SCH ×2 (06:30→14:30)
[2020-11-28] MEDS ORDERED: METHIMAZOLE 5 MG TAB PO SCH (09:00)
[2020-11-28] MEDS: DOCUSATE SODIUM 100 MG CAP PO SCH ×2 (10:00→21:00)
[2020-11-28] MEDS: FINASTERIDE 5 MG TAB PO SCH (10:00)
[2020-11-28] MEDS: LEVOFLOXACIN 250MG/D5W 50ML 50 ML IV SCH (10:00)
[2020-11-28] MEDS: TAMSULOSIN HCL 0.4 MG CAP PO SCH ×2 (10:00→21:00)
[2020-11-28] MEDS ORDERED: ONDANSETRON HCL 4 MG ORAL DISINTEGRATING TAB PO PRN ×2 (14:15)
[2020-11-29] VITALS: BP 146/112
[2020-11-29] MEDS: D5.45%NS/KCL 20MEQ 1,000 ML IV SCH ×2 (00:06→06:30)
[2020-11-29 04:00] VITALS: BP 144/85
[2020-11-29] MEDS ORDERED: METHIMAZOLE 5 MG TAB PO SCH (06:00)
[2020-11-29 06:14] LABS: BASOPHILS % 0.2 % (0.0-1.0); EOSINOPHILS % 0.6 % (0.0-6.0); LYMPHOCYTES # (AUTO) 0.9 (1.0-3.2); LYMPHOCYTES % 13.7 % (18.0-39.1); MEAN CORPUSCULAR HEMOGLOBIN 29.4 pg (28-32); MEAN CORPUSCULAR HGB CONC 33.3 g/dL (31-35); MEAN CORPUSCULAR VOLUME 88.2 fL (81-99); MONOCYTES # (AUTO) 0.5 (0.2-0.8); MONOCYTES % 7.7 % (4.4-11.3); NEUTROPHILS # (AUTO) 4.9 (2.1-6.9); NEUTROPHILS % 77.3 % (38.7-80.0); PLATELET COUNT 114 x10e3/uL (140-360); RED BLOOD COUNT 3.74 x10e6/uL (4.3-5.7); RED CELL DISTRIBUTION WIDTH 15.3 % (11.7-14.4)
[2020-11-29 06:39] LABS: ANION GAP 12.4 mmol/L (8-16); CALCIUM 8.4 mg/dL (8.4-10.2); CREATININE, SERUM 1.79 mg/dL (0.72-1.25); POTASSIUM 4.4 mmol/L (3.5-5.1)
[2020-11-29 08:27] VITALS: BP 144/85
[2020-11-29] MEDS: DOCUSATE SODIUM 100 MG CAP PO SCH (08:38)
[2020-11-29] MEDS: TAMSULOSIN HCL 0.4 MG CAP PO SCH (08:38)
[2020-11-29] MEDS: FINASTERIDE 5 MG TAB PO SCH (08:38)
[2020-11-29] MEDS: LEVOFLOXACIN 250MG/D5W 50ML 50 ML IV SCH (08:38)
[2020-11-29 11:42] VITALS: BP 92/60
== END 2020-11-29 16:29 | disposition home or self-care (01) | DRG 713 ==
LOC: OR 07:24 → PACU V 12:29 → MED/SURG 14:07
PROVIDERS: ADMIT Internal Medicine; ATTEND Internal Medicine
PROC: 0V507ZZ Destruction of Prostate, Via Natural or Artificial Opening (ICD-10-PCS; principal; 2020-11-27 09:56)
PROC: 0T7D8ZZ Dilation of Urethra, Via Natural or Artificial Opening Endoscopic (ICD-10-PCS; 2020-11-27 09:56)
PROC: BT141ZZ Fluoroscopy of Kidneys, Ureters and Bladder using Low Osmolar Contrast (ICD-10-PCS; 2020-11-27 09:56)
DX: N40.1 Benign prostatic hyperplasia with lower urinary tract symptoms (principal); N13.8 Other obstructive and reflux uropathy; I12.9 Hypertensive chronic kidney disease with stage 1 through stage 4 chronic kidney disease, or unspecified chronic kidney disease; N18.30 Chronic kidney disease, stage 3 unspecified; R39.14 Feeling of incomplete bladder emptying; R35.1 Nocturia; R33.8 Other retention of urine; R39.12 Poor urinary stream; R31.29 Other microscopic hematuria; Z80.42 Family history of malignant neoplasm of prostate; N18.9 Chronic kidney disease, unspecified; N32.81 Overactive bladder; Z93.51 Cutaneous-vesicostomy status; N35.919 Unspecified urethral stricture, male, unspecified site; E66.9 Obesity, unspecified; Z20.822 Contact with and (suspected) exposure to COVID-19; I48.0 Paroxysmal atrial fibrillation; E05.90 Thyrotoxicosis, unspecified without thyrotoxic crisis or storm; Z87.891 Personal history of nicotine dependence
CPT/HCPCS: 36415; 71046; 74420; 80048; 83735; 85025; 93005; C1758; J1100; J1580; J1956; J2001; J2270; J2405; J3010; J7030; U0002

== ENCOUNTER 2020-12-04 16:20 | Emergency (ER) | payer MEDICARE, OTHER ==
[~2020-12-04] VITALS: Ht 172.7 cm; Wt 91.2 kg
[~2020-12-04 16:20] MED LIST changes: +sulfameth PO
== END 2020-12-04 18:52 | disposition home or self-care (01) ==
LOC: ER 18:45
DX: Z46.6 Encounter for fitting and adjustment of urinary device (principal); N48.89 Other specified disorders of penis; F03.90 Unspecified dementia, unspecified severity, without behavioral disturbance, psychotic disturbance, mood disturbance, and anxiety; I48.91 Unspecified atrial fibrillation; E05.90 Thyrotoxicosis, unspecified without thyrotoxic crisis or storm
CPT/HCPCS: 99282